=== PATIENT | female | born 1990 ===

== ENCOUNTER 2023-11-03 16:58 | Inpatient (IN) ==
--- OUTSIDE RECORDS SUMMARY | 2023-11-03 17:05 | External Medical Summary | Summary of Care ---
Author Name Unknown Organization [facility] Address [address] [facility] [place] [address] Phone [phone] Care Team Providers Care Communications Technician Name Role Phone Unavailable Primary Care Provider Unavailabl e Reason for Visit * Reason Comments Return Visit Encounter Details Date Type Department Care Team (Late st Contact Info) Description 10/30/2023 11:30 AM EDT Office Visit Gynecology/Obstetric phillip Flowers [address] [place] [address] Leslee Mena CRNP [address] [place] [address] Supervision of other normal , antepartum*; Rh negative status during in third trimester; Abnormal findings on screening; Uterine size date discrepancy Allergies Active Allergy Reactions Criticality Noted Date Comments Sulfamethoxazole-Trimethoprim Hives 2022 documented as of this encounter (statuses as of 10/30/2023) Medications Medication Sig Dispensed Refills Start Date End Date Status 19 29-1 MG Oral Tablet Chewable Take by mouth. 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 Amnio: Microarray results on amniotic fluid resulted as normal male, no evidence of Klinefelter syndrome. We discussed that this does not rule out mosaicism less than 10%. Reviewed option for maternal genetic testing to rule out X chromosome alteration. Patient interested if covered by insurance. S/p [facility] anatomy ultrasound: WNL. Following consult note: "She presents for a anatomy survey. She has cffDNA screening that was indeterminate for the sex chromosomes. She had an amniocentesis on 06/11/23 that was normal" Last Assessment & Plan: She presents for a anatomy survey. She has cffDNA screening that was indeterminate for the sex chromosomes. She had an amniocentesis on 06/11/23 that was normal. We discussed the option of additional maternal testing given her prior cffDNA result (see genetic counseling noted from 06/26 for details). She would like testing and plans to contact insurance to discuss coverage. We reviewed the results of today's ultrasound. The estimated weight is appropriate for gestational age. The visualized anatomy is unremarkable in appearance. The amniotic fluid amount appears normal. We discussed that ultrasound is not able to identify all anomalies, but it is reassuring that no anomalies were seen today. Supervision of other normal , antepartu m 04/17/2023 Rh negative status during 04/17/2023 Overview: Received Rhogam 03/14/23 for bleeding in early Estimated Date of Delivery Comme nts Yes 11/22/2023 Based on last me nstrual period of 02/15/2023 documented as of this encounter (statuses as of 10/30/2023) Immunizations Name Administration Dates Next Due TDAP (age 10 and older)(Boostrix) 09/04/2023 documented as of this encounter Social History Tobacco Use Types Packs/Day Years Used Date Smoking Tobacco: Never Passive Smoke Exposure: Never Smokeless Tobacco: Never Alcohol Use Standard Drinks/Week Comments Not Currently 0 (1 standard drink = 0.6 oz pur e alcohol) social PHQ-2 Answer Date Recorded PHQ Adult Total Score 0 03/14/2023 Hunger Vital Sign Answer Date Recorded Within the past 12 months, y ou worried that your food would run out before you got the money to buy more. Never true 07/10/20 Within the past 12 months, t he food you bought just didn't last and you didn't have money to get more. Never true 07/10/2023 [place] Depression Scale Answer Date Recorded [place] Depression Scale Total 1 10/02/2023 The thought of harming myself has occurred to me . Never 10/02/2023 Estimated Date of Delivery Comme nts Yes 11/22/2023 Based on last me nstrual period of 02/15/2023 Sex and Gender Information Value Date Recorded Sex Assigned at Female 10/16/2022 8:58 PM EDT Gender Identity Female 10/16/2022 8:58 PM EDT Sexual Orientation Straight 10/16/2022 8: 58 PM EDT Job Start Date Occupation Industry Not on file Not on file Not on file documented as of this encounter Last Filed Vital Signs Vital Sign Reading Time Taken Comments Blood Pressure 124/86 10/30/2023 11:20 AM EDT Pulse - - Temperature - - Respiratory Rate - - Oxygen Saturation - - Inhaled Oxygen Concentration - - Weight 88.7 kg (195 lb 9.6 oz) 10/30/2023 11:20 AM EDT Height - - Body Mass Index 28.89 10/16/2023 8:00 AM EDT documented in this encounter Progress Notes * Leslee Mena CRNP - 10/30/2023 11:31 AM EDT 36w5d Baby is moving well. Denies ctx, leaking, bleeding. Reviewed labor signs and FKC. She works from home 3 days a week, asking if she can do 5; advised at this point, there is no medical reason, and she should discuss this with her employer. GBS swab completed. S>D, will check growth scan. 1 week return SHARON Sandy * Angle Fish LPN - 10/30/2023 11:20 AM EDT 36w5d Denies vaginal bleeding/rom + movement documented in this encounter Plan of Treatment Upcoming Encounters Date Type Department Care Team (Late st Contact Info) Description 11/06/2023 8:45 AM EDT Imaging Radiology [facility] [address], [place] [address] 11/06/2023 10:30 AM EDT Office Visit Gynecology/Obstetrics [facility] [address] [place] [address] Diamond Cerna CRNP [address] [place] [address] 11/13/2023 11:45 AM EDT Office Visit Gynecology/Obstetrics [facility] [address] [place] [address] Leslee Mena CRNP [address] [place] [address] 11/20/2023 11:30 AM EDT Office Visit Gynecology/Obstetrics [facility] [address] [place] [address] Leslee Mena CRNP [address] [place] [address] Pending Results Name Type Priority Associated Diagnoses Date /Time GROUP B STREP CULTURE/PCR Lab Routine Supervision of other normal , antepartum 10/30/2023 11:38 AM EDT Scheduled Orders Name Type Priority Associated Diagnoses Orde r Schedule US PREG FOLLOW-UP EACH FETUS Medical Imaging Routine Supervision of other normal , antepartum Uterine size date discrepancy Expected: 10/30/2023 (Approximate), Expires: 11/28/2024 Health Maintenance Due Date Last Done Comments Hepatitis B (1 of 3 - 19+ 3- dose series) 2010 COVID-19 Vaccine (2022-2 4 season) 2023 Depression Screening 03/14/2024 03/14/2023 Influenza Vaccine (FLU shot) (Season Ended) 2024 Pap Smear 10/19/2025 10/19/2022 Cervical Cancer Screening 10/20/2027 HPV/Co-Test 10/20/2027 10/19/2022 DTaP,Tdap,and Td Vaccines (2 - Td or Tdap) 09/04/2033 09/04/2023 GARDASIL-HPV IMMUNIZATION SERIES Aged Out No longer eligible based on patient's age to complete this topic MENINGOCOCCAL (MENACTRA/MENVEO) Aged Out No longer eligible based on patient's age to complete this topic Pneumococcal Vaccine: Pediat rics (0 to 5 Years) and At-Risk Patients (6 to 64 Years) Aged Out No longer eligi ble based on patient's age to complete this topic documented as of this encounter Medical Devices Not on filedocumented as of this encounter Visit Diagnoses Diagnosis Supervision of other normal , antepartum- Primary Rh negative status during in third trimester Abnormal findings on screening Uterine size date discrepancy Uterine size date discrepancy, antepartum condition or complication documented in this encounter
--- OUTSIDE RECORDS SUMMARY | 2023-11-03 17:05 | External Medical Summary | Summary of Care ---
Author Name Unknown Organization [facility] Address [address] [facility] [place] [address] Phone [phone] Care Team Providers Care Retail Key Holder Name Role Phone Unavailable Primary Care Provider Unavailabl e Encounter Details Date Type Department Care Team (Late st Contact Info) Description 10/30/2023 [facility] [address] [place] [address] Backer, SHARON Diaz [address] [place] [place] [address] Allergies Active Allergy Reactions Criticality Noted Date [...] Patient interested if covered by insurance. S/p [facility] anatomy ultrasound: WNL. Following consult note: "She [...] money to get more. Never true 07/10/2023 [place] Depression Scale Answer Date Recorded [place] Depression Scale Total 1 10/02/2023 The thought [...] on file documented as of this encounter Miscellaneous Notes * Telephone Encounter - Hellen Camilo MED ASSIST - 10/30/2023 2:22 PM EDT Appt rescheduled, pt aware * Telephone Encounter - Audrey Ham RN - 10/30/2023 2:08 PM EDT Patient calling in asking to see what other appts are available for her US. Would like to schedule for tomorrow or Saturday if possible, per ashley this is okay. Please contact patient to r/s schedule US. documented in this encounter Plan of Treatment Upcoming Encounters Date Type Department Care Team (Late st Contact Info) Description 10/31/2023 8:30 AM EDT Imaging Radiology [facility] [address] [place] [address] 11/06/2023 10:30 AM EDT Office Visit Gynecology/Obstetrics [facility] [address] [place] [address] Diamond Cerna CRNP [address] [place] [address] 11/13/2023 11:45 AM EDT Office Visit Gynecology/Obstetrics [facility] [address] [place] [address] Leslee Mena CRNP [address] [place] [address] 11/20/2023 11:30 AM EDT Office Visit Gynecology/Obstetrics Pier[facility] Flowers [address] [place] [address] Leslee Mena CRNP [address] [place] [address] Health Maintenance Due Date Last Done Comments Hepatitis B (1 of 3 - 19+ 3- dose series) 2010 COVID-19 Vaccine ( - 2022-2 4 season) 2023 Depression Screening 03/14/2024 03/14/2023 [...]
--- OUTSIDE RECORDS SUMMARY | 2023-11-03 17:05 | External Medical Summary | Summary of Care ---
Author Name Unknown Organization [facility] Address [address] [facility] [place] [address] Phone [phone] Care Team Providers Care Head Strength And Conditioning Coach Name Role Phone Unavailable Primary Care Provider Unavailabl e Encounter Details Date Type Department Care Team (Late st Contact Info) Description 10/30/2023 Tele[facility] [address] [place] [address] Backer, SHARON Diaz [address] [place] [address] Allergies Active Allergy Reactions Criticality Noted Date [...] money to get more. Never true 07/10/2023 [place] Depression Scale Answer Date Recorded [place] Depression Scale Total 1 10/02/2023 The thought [...] Description 10/31/2023 8:30 AM EDT Imaging Radiology [facility] [address] [place] [address] 11/06/2023 10:30 AM EDT Office Visit Gynecology/Obstetrics [facility] [address] [place] [address] Diamond Cerna CRNP [address] [place] [address] 11/13/2023 11:45 AM EDT Office Visit Gynecology/Obstetrics [facility] [address] [place] [address] Leslee Mena CRNP [address] [place] [address] 11/20/2023 11:30 AM EDT Office Visit Gynecology/Obstetrics Piero Flowers [address] [place] [address] Leslee Mena CRNP [address] [place] [address] Health Maintenance Due Date Last Done Comments [...]
--- OUTSIDE RECORDS SUMMARY | 2023-11-03 17:05 | External Medical Summary ---
Author Name Unknown Address Unknown Organization K01:[facility] [place] [address] [facility] [address] Laboratory Report Ordering Provider Test Date Status ANNE SHARP 10/30/2023 11:38:49 Final Observation Date Value Abnormality Reference (Units ) Status Streptococcus agalactiae DNA [Presence] in Specimen by REMEDIOS with probe detection 10/30/2023 11:38:49 Negative Negative Final No Group B Streptococcus det ected by culture-enhanced PCR (amplified probe).
The collection of vaginal/rectal swab specimen combinations (FDA approved specimen type) is optimal for the detection of Group B Streptococcus. Single source collection (vaginal only or rectal only) or alternate specimen sources may lead to false negative results. Performing Location [facility] [place] [address] [place] [address]
--- OUTSIDE RECORDS SUMMARY | 2023-11-03 17:05 | External Medical Summary | Summary of Care ---
Author Name Unknown Organization [facility] Address [address] [facility] [place] [address] Phone [phone] Care Team Providers Care Crop Grain Or Livestock Farmer Name Role Phone Unavailable Primary Care Provider Unavailabl e Reason for Visit * Reason Comments Return Visit Encounter Details Date Type Department Care Team (Late st Contact Info) Description 10/30/2023 11:30 AM EDT Office Visit Gynecology/Obstetric phillip Flowers [address] [place] [address] Leslee Mena CRNP [address] [place] [place] [address] Supervision of other normal , antepartum*; Rh [...] Patient interested if covered by insurance. S/p [facility] anatomy ultrasound: WNL. Following consult note: "She [...] money to get more. Never true 07/10/2023 [place] Depression Scale Answer Date Recorded [place] Depression Scale Total 1 10/02/2023 The thought [...] Description 11/06/2023 8:45 AM EDT Imaging Radiology [facility] [address], [place] [address] 11/06/2023 10:30 AM EDT Office Visit Gynecology/Obstetrics [facility] [address] [place] [address] Diamond Cerna CRNP [address] [place] [address] 11/13/2023 11:45 AM EDT Office Visit Gynecology/Obstetrics [facility] [address] [place] [address] Leslee Mena CRNP [address] [place] [address] 11/20/2023 11:30 AM EDT Office Visit Gynecology/Obstetrics [facility] [address] [place] [address] Leslee Mena CRNP [address] [place] [address] Pending Results Name Type Priority Associated Diagnoses [...]
--- OUTSIDE RECORDS SUMMARY | 2023-11-03 17:05 | External Medical Summary | Summary of Care ---
Author Name Unknown Organization [facility] Address [address] [place] [address] Phone [phone] Care Team Providers Care Department Store Salesperson Name Role Phone Unavailable Primary Care Provider Unavailabl e Reason for Visit * Reason Onset Date Comments Test Results 10/24/2023 Chromosome Cata sis Result Encounter Details Date Type Department Care Team (Late st Contact Info) Description 10/24/2023 Telephone Senior Client Advisor Obstetrics [facility] [place] [address], [place] [phone] Jamila Frankel CHRA Test Results (Chromosome Analysis Result) Allergies Active Allergy Reactions Criticality Noted Date Comments Sulfamethoxazole-Trimethoprim Hives 2022 documented as of this encounter (statuses as of 10/29/2023) Medications Medication Sig Dispensed Refills Start Date End Date Status 19 29-1 MG Oral Tablet Chewable Take by mouth. 0 Activ e documented as of this encounter (statuses as of 10/29/2023) Active Problems Problem Noted Date Diagnosed Date [...] as of this encounter (statuses as of 10/29/2023) Immunizations Name Administration Dates Next Due TDAP [...] money to get more. Never true 07/10/2023 [place] Depression Scale Answer Date Recorded [place] Depression Scale Total 1 10/02/2023 The thought [...] encounter Miscellaneous Notes * Telephone Encounter - Janet Koch MS - 10/29/2023 10:38 AM EDT MyG to patient explaining the results. She had normal karyotype, her baby had a normal microarray (male). 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 We cannot rule out low level (<10-15%) mosaicism. Janet Koch MS [facility] [place]ified [place] Licensed Genetic Counselor [phone] * Telephone Encounter - Jamila Frankel CHRA - 10/24/2023 10:55 AM EDT The pts chromosome analysis came back normal. 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 There are no changessuspicious for a balanced translocation. Based on this result we do not see an inherited genetic reason for recurrent loss. GC routed to review results and notify patient, due to suspected sex chromosomal abnormality in fetus. Respectfully, Jamila Frankel Genetic Counseling Clutch Assembler Maternal Medicine For further questions call the Genetic Counselor at + . documented in this encounter Plan of Treatment Upcoming Encounters Date Type Department Care Team (Late st Contact Info) Description 10/30/2023 11:30 AM EDT Office Visit Gynecology/Obstetrics [facility] [address] [place] [address] BackerLeslee CRNP [address] [place] [address] 11/06/2023 10:30 AM EDT Office Visit Gynecology/Obstetrics [facility] [address] [place] [address] Diamond Cerna CRNP [address] [place] [address] 11/13/2023 11:45 AM EDT Office Visit Gynecology/Obstetrics [facility] [address] [place] [address] Leslee Mena CRNP [address] [place] [address] 11/20/2023 11:30 AM EDT Office Visit Gynecology/Obstetrics [facility] [address] [place] [address] Leslee Mena CRNP [address] [place] [address] Health Maintenance Due Date Last Done Comments [...]
--- OUTSIDE RECORDS SUMMARY | 2023-11-03 17:05 | External Medical Summary | Summary of Care ---
Author Name Unknown Organization [facility] Address [address] [place] [address] Phone [phone] Care Team Providers Care Peer Counselor Name Role Phone Unavailable Primary Care Provider Unavailabl e Reason for Visit * Reason Onset Date Comments Test Results 10/24/2023 Chromosome Cata sis Result Encounter Details Date Type Department Care Team (Late st Contact Info) Description 10/24/2023 Telephone Monitor And Storage Bin Tender Obstetrics [facility] [place] [address] [place], [place] [phone] Jamila Frankel CHRA Test Results (Chromosome Analysis Result) Allergies Active Allergy Reactions Criticality Noted Date Comments Sulfamethoxazole-Trimethoprim Hives 2022 documented as of this encounter (statuses as of 10/24/2023) Medications Medication Sig Dispensed Refills Start Date End Date Status 19 29-1 MG Oral Tablet Chewable Take by mouth. 0 Activ e documented as of this encounter (statuses as of 10/24/2023) Active Problems Problem Noted Date Diagnosed Date [...] as of this encounter (statuses as of 10/24/2023) Immunizations Name Administration Dates Next Due TDAP [...] money to get more. Never true 07/10/2023 [place] Depression Scale Answer Date Recorded [place] Depression Scale Total 1 10/02/2023 The thought [...] encounter Miscellaneous Notes * Telephone Encounter - Jamila Frankel CHRA [...] in fetus. Respectfully, Jamila Frankel Genetic Counseling Electrical Products Sales Engineer Maternal Medicine For further questions call the Genetic Counselor at + . documented in this encounter Plan of Treatment Upcoming Encounters Date Type Department Care Team (Late st Contact Info) Description 10/30/2023 11:30 AM EDT Office Visit Gynecology/Obstetrics [facility] [address] [place] [address] Leslee Mena CRNP [address] [place] [address] 11/06/2023 10:30 AM EDT Office Visit Gynecology/Obstetrics [facility] [address] [place] [address] Diamond Cerna CRNP [address] [place] [address] 11/13/2023 11:45 AM EDT Office Visit Gynecology/Obstetrics [facility] [address] [place] [address] Leslee Mena CRNP [address] [place] [address] 11/20/2023 11:30 AM EDT Office Visit Gynecology/Obstetrics [facility] [address] [place] [address] BackerLeslee CRNP [address] [place] [address] Health Maintenance Due Date Last Done Comments Hepatitis B (1 of 3 - 19+ 3- dose series) 2010 COVID-19 Vaccine (2022-2 4 season) 2023 Influenza Vaccine (FLU shot) (#1) 2023 Depression Screening 03/14/2024 03/14/2023 Pap Smear 10/19/2025 10/19/2022 Cervical Cancer Screening [...]
--- OUTSIDE RECORDS SUMMARY | 2023-11-03 17:05 | External Medical Summary | Summary of Care ---
Author Name Unknown Organization [facility] Address [address] [place] [address] Phone [phone] Care Team Providers Care Kilnman Name Role Phone Unavailable Primary Care Provider Unavailabl e Reason for Visit * Reason Comments Return Visit Encounter Details Date Type Department Care Team (Late st Contact Info) Description 10/30/2023 11:30 AM EDT Office Visit Gynecology/Obstetric phillip Flowers [address] [place] [address] Leslee Mena CRNP [address] [place] [address] Supervision of other normal , antepartum*; Rh [...] Patient interested if covered by insurance. S/p [facility] anatomy ultrasound: WNL. Following consult note: [...] money to get more. Never true 07/10/2023 [place] Depression Scale Answer Date Recorded [place] Depression Scale Total 1 10/02/2023 The thought [...] Description 11/06/2023 8:45 AM EDT Imaging Radiology [facility] [address], [place] [address] 11/06/2023 10:30 AM EDT Office Visit Gynecology/Obstetrics [facility] [address] [place] [address] Diamond Cerna CRNP [address] [place] [address] 11/13/2023 11:45 AM EDT Office Visit Gynecology/Obstetrics [facility] [address] [place] [address] Leslee Mena CRNP [address] [place] [address] 11/20/2023 11:30 AM EDT Office Visit Gynecology/Obstetrics [facility] [address] [place] [address] Leslee Mena CRNP [address] [place] [address] Pending Results Name Type Priority Associated Diagnoses [...]
--- OUTSIDE RECORDS SUMMARY | 2023-11-03 17:06 | External Medical Summary | Summary of Care ---
Author Name Unknown Organization [facility] Address [address] [facility] [place] [address] Phone [phone] Care Team Providers Care Distributor Sales Manager Name Role Phone Unavailable Primary Care Provider Unavailabl e Reason for Visit * Reason Comments Return Visit Encounter Details Date Type Department Care Team (Late st Contact Info) Description 10/02/2023 9:15 AM EST Office Visit Gynecology/Obstetric phillip Flowers [address] [place] [address] Rafaela Schuster PA-C [address] [place] [address] Supervision of other normal , antepartum*; Rh negative status during in third trimester; Abnormal findings on screening Allergies Active Allergy Reactions Criticality Noted Date Comments Sulfamethoxazole-Trimethoprim Hives 2022 documented as of this encounter (statuses as of 10/02/2023) Medications Medication Sig Dispensed Refills Start Date End Date Status 19 29-1 MG Oral Tablet Chewable Take by mouth. 0 Activ e documented as of this encounter (statuses as of 10/02/2023) Active Problems Problem Noted Date Diagnosed Date [...] as of this encounter (statuses as of 10/02/2023) Immunizations Name Administration Dates Next Due TDAP [...] money to get more. Never true 07/10/2023 [place] Depression Scale Answer Date Recorded [place] Depression Scale Total 1 10/02/2023 The thought [...] Sign Reading Time Taken Comments Blood Pressure 118/82 10/02/2023 9:02 AM EST Pulse - - Temperature - - Respiratory Rate - - Oxygen Saturation - - Inhaled Oxygen Concentration - - Weight 84.8 kg (187 lb) 10/02/2023 9:02 AM EST Height 175.3 cm (5' 9") 10/02/2023 9:02 AM EST Body Mass Index 27.62 10/02/2023 9:02 AM EST documented in this encounter Progress Notes * Rafaela Schuster PA-C - 10/02/2023 9:29 AM EST 32w5d Increasing heartburn at night while sleeping. Has been trying to sleep reclined. Reviewed TUMS and Pepcid. Denies VB, LOF, contractions. Pos fm. Reviewed GBS at 36 weeks RTC in 2 weeks Rafaela Schuster PA-C documented in this encounter Nursing Notes * Aleah Culver LPN - 10/02/2023 9:17 AM EST 32w5d Heartburn. documented in this encounter Plan of Treatment Upcoming Encounters Date Type Department Care Team (Late st Contact Info) Description 10/16/2023 8:15 AM EDT Office Visit Gynecology/Obstetrics [address] [place] [address] Diamond Cerna CRNP [address] [place] [address] 10/30/2023 11:30 AM EDT Office Visit Gynecology/Obstetrics [facility] [address] [place] [address] BackLeslee mora CRNP [address] [place] [address] 11/06/2023 10:30 AM EDT Office Visit Gynecology/Obstetrics [facility] [address] [place] [address] Diamond Cerna CRNP [address] [place] [address] 11/13/2023 11:45 AM EDT Office Visit Gynecology/Obstetrics [facility] [address] [place] [address] BackLeslee mora CRNP [address] [place] [address] 11/20/2023 11:30 AM EDT Office Visit Gynecology/Obstetrics [facility] [address] [place] [address] BackLeslee mora CRNP [address] [place] [address] Health Maintenance Due Date Last Done Comments [...] in third trimester Abnormal findings on screening documented in this encounter
--- OUTSIDE RECORDS SUMMARY | 2023-11-03 17:06 | External Medical Summary | Summary of Care ---
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 0 Activ e documented as of this encounter (statuses as of 10/16/2023) Active Problems Problem Noted Date Diagnosed Date [...] Patient interested if covered by insurance. S/p [facility] anatomy ultrasound: WNL. Following consult note: [...] as of this encounter (statuses as of 10/16/2023) Immunizations Name Administration Dates Next Due TDAP [...] money to get more. Never true 07/10/2023 [place] Depression Scale Answer Date Recorded [place] Depression Scale Total 1 10/02/2023 The [...] on file documented as of this encounter Plan of Treatment Upcoming Encounters Date Type Department Care Team (Late st Contact Info) Description 10/30/2023 11:30 AM EDT Office Visit Gynecology/Obstetrics [facility] [address] [place] [address] Leslee Mena CRNP [address] [place] [address] 11/06/2023 10:30 AM EDT Office Visit Gynecology/Obstetrics [facility] [address] [place] [address] Diamond Cerna CRNP [address] [place], [place] [address] 11/13/2023 11:45 AM EDT Office Visit Gynecology/Obstetrics [facility] M[facility]orm[facility] [address] [place] [address] Leslee Mena CRNP [address] [place] [address] 11/20/2023 11:30 AM EDT Office Visit Gynecology/Obstetrics [facility] [address] [place] [address] Leslee Mena CRNP [address] [place] [address] Pending Results Name Type Priority Associated Diagnoses Date /Time CHROMOSOME ANALYSIS, BLOOD Lab Routine Encounter for other genetic testing of female for procreative management 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
--- OUTSIDE RECORDS SUMMARY | 2023-11-03 17:06 | External Medical Summary ---
Author Name Unknown Address Unknown Organization : Laboratory Report Ordering Provider Test Date Status LIANA SULTANA 10/16/2023 08:27:45 Final [facility] Test code 36725
IC D10 Z31.43; O35.15
CPT codes: 22023, 31448 Observation Date Value Abnormality Reference (Units ) Status Karyotype [Identifier] in Blood or Tissue Nominal 10/16/2023 08:27:45 SEE BELOW Final Order ID: [id number]
Spec imen Type: Blood
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
fetus, encounter for other genetic testing
of female for procreative management
RESULT:
NORMAL FEMALE KARYOTYPE
INTERPRETATION:
Chromosome analysis revealed normal G-band patterns within the limits
of standard cytogenetic analysis.
Please expect the results of any other concurrent study in a separate
report.
NOMENCLATURE:
46,XX
ASSAY INFORMATION:
Method: G-Band (Digital Analysis:
[employer])
Cells Counted: 20
Band Level: 550
Cells Analyzed: 5
Cells Karyotyped: 5
This test does not address genetic disorders that cannot be detected
by standard cytogenetic methods or rare events such as low level
mosaicism or subtle rearrangements.
Stacy Dietz, Ph.D., [facility], Surgical Technologist, Cytogenetics
and Genomics, , (site [id number])
Electronic Signature: 10/24/2023 8:17 AM
For additional information, please refer to
[email or web address]
(This link is being provided for informational/
educational purposes only).
Test Performed by [facility],
[facility],
[address] [place], [place]
Atul Schwartz M.D., Ph.D., Director of Laboratories
, [facility] [id number]

Test Performed at:
[facility]
[address] [facility]
[place], [place]
Atul Schwartz M.D., Ph.D.,Director of Laboratories Performing Location
--- OUTSIDE RECORDS SUMMARY | 2023-11-03 17:06 | External Medical Summary ---
Author Name Unknown Address Unknown Organization [id number]:[facility] [address] [facility] [place] [address] Laboratory Report Ordering Provider Test Date Status ISHAN MCCLENDON 09/04/2023 10:20:53 Final Observation Date Value Abnormality Reference (Units ) Status SYNC LEUKOCYTES IN BLOOD BY AUTOMATED COUNT 09/04/2023 10:20:53 7.72 4.00-10.80 (K/uL) Final Segs 09/04/2023 10:20:53 72.3 40.0-75.0 (%) Final Lymphs % 09/04/2023 10:20:53 17.1 Below low normal 18.0-42.0 (%) Final Monos 09/04/2023 10:20:53 8.8 1.0-11.0 (%) Final Eosinophils 09/04/2023 10:20:53 0.8 0.0-6.0 (%) Final Basos 09/04/2023 10:20:53 0.4 0.0-2.0 (%) Final Immature Granulocyte, Percent 09/04/2023 10:20:53 0.6 0.0-2.0 (%) Final Absolute Segs 09/04/2023 10:20:53 5.58 1.80-7.70 (K/uL) Final Lymphs, absolute 09/04/2023 10:20:53 1.32 1.00-4.80 (K/ul) Final Monos, Abs 09/04/2023 10:20:53 0.68 0.00-1.10 (K/uL) Final Eos, Abs 09/04/2023 10:20:53 0.06 0.00-0.70 (K/uL) Final Basos, Abs 09/04/2023 10:20:53 0.03 0.00-0.20 (K/uL) Final Immature Granulocytes, Number 09/04/2023 10:20:53 0.05 0.00-0.20 (K/uL) Final Performing Location [facility] [place] [address] [facility] [address]
--- OUTSIDE RECORDS SUMMARY | 2023-11-03 17:06 | External Medical Summary | Summary of Care ---
Author Name Unknown Organization [facility] Address [address] [place] [address] Phone [phone] Care Team Providers Care Rn Neonatal Name Role Phone Unavailable Primary Care Provider Unavailabl e Encounter Details Date Type Department Care Team (Late st Contact Info) Description 10/23/2023 Telephone Gynecology/Obstetrics, [address] [place] [address] Kris Lindquist MD [address] [place] [address] Allergies Active Allergy Reactions Criticality Noted Date Comments Sulfamethoxazole-Trimethoprim Hives 2022 documented as of this encounter (statuses as of 10/23/2023) Medications Medication Sig Dispensed Refills Start Date End Date Status 19 29-1 MG Oral Tablet Chewable Take by mouth. 0 Activ e documented as of this encounter (statuses as of 10/23/2023) Active Problems Problem Noted Date Diagnosed Date [...] as of this encounter (statuses as of 10/23/2023) Immunizations Name Administration Dates Next Due TDAP [...] money to get more. Never true 07/10/2023 [place] Depression Scale Answer Date Recorded [place] Depression Scale Total 1 10/02/2023 The thought [...] encounter Miscellaneous Notes * Telephone Encounter - Alma Rosa Sanderson RN - 10/23/2023 11:18 AM EDT T/C from pt reporting lower back pain since yesterday. Feels stiff. More on the R side. States she was doing more around the house yesterday than usual. Admits to +FM. Denies vaginal bleeding or LOF. Advised tylenol, warm compress and to hydrate well with water. To call office with any changes, UCs, decreased FM, vaginal bleeding or LOF. Pt agreeable to plan. Please review with provider. Trey's pt. documented in this encounter Plan of Treatment Upcoming Encounters Date Type Department Care Team (Late st Contact Info) Description 10/30/2023 11:30 AM EDT Office Visit Gynecology/Obstetrics [facility]o Flowers [address] [place] [address] Leslee Mena CRNP [address] [place] [address] 11/06/2023 10:30 AM EDT Office Visit Gynecology/Obstetrics Piero Flowers [address] [place] [address] Diamond Cerna CRNP [address] [place] [address] 11/13/2023 11:45 AM EDT Office Visit Gynecology/Obstetrics Piero Flowers [address] [place] [address] BackLeslee mora CRNP [address] [place] [address] 11/20/2023 11:30 AM EDT Office Visit Gynecology/Obstetrics Piero Flowers [address] [place] [address] Backer, LesleeSHARON Garcia [address] [place] [address] Health Maintenance Due Date Last Done Comments [...]
--- OUTSIDE RECORDS SUMMARY | 2023-11-03 17:06 | External Medical Summary | Summary of Care ---
Author Name Unknown Organization [facility] Address [address] [place] [address] Phone [phone] Care Team Providers Care Banking Attorney Name Role Phone Unavailable Primary Care Provider Unavailabl e Encounter Details Date Type Department Care Team (Late st Contact Info) Description 10/23/2023 Telephone Gynecology/Obstetrics, [address] [place] [address] Kris Lindquist MD [address] [place] [address] Allergies Active Allergy Reactions Criticality Noted Date [...] money to get more. Never true 07/10/2023 [place] Depression Scale Answer Date Recorded [place] Depression Scale Total 1 10/02/2023 The thought [...] Gynecology/Obstetrics Piero Flowers [address] [place] [address] Leslee Mena CRNP [address] [place] [address] 11/06/2023 10:30 AM EDT Office Visit Gynecology/Obstetrics Piero Flowers [address] [place] [address] Diamond Cerna CRNP [address] [place] [address] 11/13/2023 11:45 AM EDT Office Visit Gynecology/Obstetrics Piero Flowers [address] [place] [address] BackLeslee mora CRNP [address] [place] [address] 11/20/2023 11:30 AM EDT Office Visit Gynecology/Obstetrics Piero Flowers [address] [place] [address] Backer, LesleeSHARON Garcia [address] [place] [address] Health Maintenance Due Date Last Done Comments [...]
--- OUTSIDE RECORDS SUMMARY | 2023-11-03 17:06 | External Medical Summary ---
Author Name Unknown Address Unknown Organization K0G[facility] [address] [place] [address] Laboratory Report Ordering Provider Test Date Status DANELLEISHAN 09/04/2023 10:20:53 Final Observation Date Value Abnormality Reference (Units ) Status Glucose [Moles/volume] in Serum or Plasma --1 hour post 50 g glucose PO 09/04/2023 10:20:53 90 70-129 (mg/dL) Final Performing Location [facility] - [address] [place] [address]
--- OUTSIDE RECORDS SUMMARY | 2023-11-03 17:06 | External Medical Summary | Summary of Care ---
Author Name Unknown Organization [facility] Address [address] [facility] [place] [address] Phone [phone] Care Team Providers Care Waste Treatment Operator Name Role Phone Unavailable Primary Care Provider Unavailabl e Reason for Visit * Reason Comments Return Visit Encounter Details Date Type Department Care Team (Late st Contact Info) Description 10/16/2023 8:15 AM EDT Office Visit Gynecology/Obstetric s Piero Flowers [address] [place] [address] Diamond Cerna CRNP [address] [place] [address] Supervision of other normal , antepartum*; Rh negative, antepartum; Abnormal findings on screening Allergies Active Allergy [...] money to get more. Never true 07/10/2023 [place] Depression Scale Answer Date Recorded [place] Depression Scale Total 1 10/02/2023 The thought [...] Sign Reading Time Taken Comments Blood Pressure 128/82 10/16/2023 8:00 AM EDT Pulse - - Temperature - - Respiratory Rate - - Oxygen Saturation - - Inhaled Oxygen Concentration - - Weight 88.9 kg (196 lb) 10/16/2023 8:00 AM EDT Height 175.3 cm (5' 9") 10/16/2023 8:00 AM EDT Body Mass Index 28.94 10/16/2023 8:00 AM EDT documented in this encounter Progress Notes * Diamond Cerna CRNP - 10/16/2023 8:15 AM EDT 34w5d No concerns. Baby is active. No contractions, bleeding, LOF. Planning to breastfeed. Discussed contraception, not interested in anything hormonal. Likely going to use condoms. 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, sex chromosome abnormality, not applicable or unspecified 10/30/2023 11:30 AM EDT Office Visit Gynecology/Obstetric phillip Flowers [address] [place] [address] Leslee Mena CRNP [address] [place] [address] 11/06/2023 10:30 AM EDT Office Visit Gynecology/Obstetric phillip Flowers [address] [place] [address] Diamond Cerna CRNP [address] [place] [address] 11/13/2023 11:45 AM EDT Office Visit Gynecology/Obstetric phillip Flowers [address] [place] [address] Leslee Mena CRNP [address] [place] [address] 11/20/2023 11:30 AM EDT Office Visit Gynecology/Obstetric phillip Flowers [address] [place] [address] Leslee Mena CRNP [address] [place] [address] Health Maintenance Due Date Last Done Comments [...] of other normal , antepartum- Primary Rh negative, antepartum Rhesus isoimmunization affecting management of mother, antepartum condition Abnormal findings on screening Encounter for other genetic testing of female for procreative management 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
--- OUTSIDE RECORDS SUMMARY | 2023-11-03 17:06 | External Medical Summary | Summary of Care ---
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 0 Activ e Hospital, Clinic, or Other Facility Administered Medication Ordered Dose Route Frequency Start Date End Date Status Rho D Immune Globulin (Rhophylac) inj 300 mcgIndications:Abnormal findings on screening,Supervision of high risk in second trimester 300 mcg IM ONCE 06/11/2023 06/11/2023 Ended documented as of this encounter (statuses as of 08/10/2023) Active Problems Problem Noted Date Diagnosed Date [...] alteration. Patient interested if covered by insurance. Last Assessment & Plan: She presents for [...] today. Supervision of other normal , antepartu 04/17/2023 Rh negative status during 04/17/2023 Overview: Received Rhogam 03/14/23 for bleeding in early Estimated Date of Delivery Comme nts Yes 11/22/2023 Based on last de nstrual period of 02/15/2023 documented as of this encounter (statuses as of 08/10/2023) Social History Tobacco Use Types Packs/Day Years [...] the money to buy more. Never true 10/17/19 Within the past 12 months, t he food you bought just didn't last and you didn't have money to get more. Never true 10/16/2022 Estimated Date of Delivery Comme nts Yes [...] on file documented as of this encounter Progress Notes * Imelda Hooks, DO - 06/11/2023 10:01 AM EST MATERNAL MEDICINE VISIT Sheron Benton is at 16w4d who presents to [facility] for an ultrasound and follow-up of her high risk . 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 Patient received genetic counseling prior to amniocentesis and was informed of a 1/500 risk of loss associated with this procedure. She also understands the risks of bleeding, infection, rupture of membranes and insufficient sample acquisition. She is Rh negative, therefore RhIg is indicat ed. Infectious studies (including HIV and Hepatitis B) are negative. Following consent and a timeout, a successful amniocentesis was performed with one needle insertion (6.0, 20 gauge). The first 1 cc was extracted and discarded; 31 cc were withdrawn and the fluid was sent for microarray. The placenta was not traversed and the fluid appeared straw yellow. heart rate was in the normal range post-procedure. The patient tolerated the procedure well and there were no apparent complications. Post-procedure precautions were given to the patient. The patient will be informed of the genetic testing results from our genetic counselor. 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 (For full report, please refer to ultrasound report provided separately). Ms. Benton's questions were answered to her satisfaction. RECOMMENDATIONS: Recommend follow up ultrasound with MFM in 4 weeks for anatomy scan, however patient does live a distance from [facility] and may prefer to see Radiology closer to home if microarray results as normal. Willcoordinate after results reviewed with the patient. Thank you for allowing us to participate in the care of this patient. Please call with any questions. Imelda Hooks DO 06/11/2023 10:01 AM I have discussed the patient's management with the medical trainee and agree with the note. Please refer to the documented findings and plan of care. This patient's visit today consisted of an evaluation, a procedure and a diagnostic. I was present and confirmed the findings of the history and exam, and was present for the entire procedure. I have reviewed the interpretation of the diagnostic study. 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 Patient received genetic counseling prior to amniocentesis and was informed of a 1/500 risk of loss associated with this procedure. She also understands the risks of bleeding, infection, rupture of membranes and insufficient sample acquisition. She is Rh negative, therefore RhIg is indicat ed. Infectious studies (including HIV and Hepatitis B) are negative. Following consent and a timeout, a successful amniocentesis was performed with one needle insertion (6.0, 20 gauge). The first 1 cc was extracted and discarded; 31 cc were withdrawn and the fluid was sent for microarray. The placenta was not traversed and the fluid appeared straw yellow. heart rate was in the normal range post-procedure. The patient tolerated the procedure well and there were no apparent complications. Post-procedure precautions were given to the patient. The patient will be informed of the genetic testing results from our genetic counselor. documented in this encounter Plan of Treatment Upcoming Encounters Date Type Department Care Team (Late st Contact Info) Description 09/04/2023 9:00 AM EST Laboratory Laboratory, [facility] [address] [place] [id number] [facility] [address] [place] [address] 09/04/2023 9:30 AM EST Office Visit [facility]stetrics [facility] [place] [address] Diamond Cerna CRNP [address] [facility] [place] [address] Scheduled Orders Name Type Priority Associated Diagnoses Orde r Schedule MFM US PREG FOLLOW UP EACH FETUS Medical Imaging Routine Abnormal findings on screening Supervision of high risk in second trimester 5 Occurrences starting 06/11/2023 until 11/22/2023 Health Maintenance Due Date Last Done Comments Hepatitis B (1 of 3 - 3-dose series) 1990 COVID-19 Vaccine (#1) 01/18/1992 DTaP,Tdap,and Td Vaccines (1 - Tdap) 2010 Influenza Vaccine (FLU shot) (#1) 2023 Depression Screening 03/14/2024 03/14/2023 Pap Smear 10/19/2025 10/19/2022 Cervical Cancer Screening 10/20/2027 HPV/Co-Test 10/20/2027 10/19/2022 GARDASIL-HPV IMMUNIZATION SERIES Aged Out No longer [...] Not on filedocumented as of this encounter Procedures Procedure Name Priority Date/Time Associated Diagnosis Comments HIGH-RESOLUTION RAPID MICROARRAY (CGH AND SNP) Routine 06/11/2023 8:28 AM EST Abnormal findings on screening 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 1 MCG = 5 INTERNATIONAL UNITS Given 06/11/2023 10:06 AM EST 300 mcg Dorsogluteal Left documented in this encounter
--- OUTSIDE RECORDS SUMMARY | 2023-11-03 17:06 | External Medical Summary | Continuity of Care Document ---
Author Name Unknown Organization [facility] [address] [facility] 2 Address [address] [phone] Encounter [facility] [id number] Date(s): 10/17/23 - 10/17/23 [facility] [address] [facility] 2 [place], [place] [id number] Encounter Diagnosis Lentigines(Discharge Diagnosis) - 10/17/23 Acne vulgaris(Discharge Diagnosis) - 10/17/23 Discharge Disposition: Home or Self Care Attending Physician: KULDIP Vega Dawn M Referring Physician: KULDIP Vega Dawn M Allergies, Adverse Reactions, Alerts Substance Reaction Severity Status Bactrim Hives Active Assessment and Plan Extracted from: Title:Dermatology Office Visit Note Author:Kim mary PA-C, Dawn M Date:10/17/23 1.Lentigines chronic and stable -watchful waiting. Sun protection emphasized. Recheck right cheek 3-4 months 2.Acne vulgaris chronic and worsening - azelaic acid 10% BID, 2.5% BP wash in AM and vanicream wash PM with vanicream moisturizer. Consider clindamycin topical. Reviewed sun protection with SPF 30 or higher applied every 80 minutes and use of sun protective clothing and hat. Call with questions or concerns. Follow up 3-4 months and 1 year. Patient in agreement with plan. Medications Multivitamins with Vitamin B Complex, Vitamin C, Minerals and L- Methylfolate oral capsule Start: 10/11/22 9:06:00 EDT Start Date: 10/11/22 Status: Ordered Mental Status 10/17/23 Barriers to Learning one year None evide nt Mandatory Health Literacy Documentation Yes Health Literacy Communication Barriers N ever Primary Language [place] Problem List No Chronic Problems Diagnosis Diagnosis Type Effective Dates Health Status Cl inical Service Informant Lentigines Discharge Diagnosis 10/17/23 Acne vulgaris Discharge Diagnosis 10/17/23 Procedures Procedure Date Related Diagnosis Body Site Status Shave biopsy of skin 09/04/23 Comp leted Surgery 1 Completed 1multiple surgeries left knee Social History Social History Type Response Smoking Status Never smoked cigaret delmy Sex Dermatology Outpatient Note * KULDIP Vega Dawn M: PERFORM Event Display: Dermatology Outpt Note Authored Date: [id number] Chief Complaint Annual skin check. No concerns. Pt is 35 weeks . History of Present Illness Verona DOHERTY a33 year old patient presenting today with a chief complaint of Annual skin check. No concerns. Pt is 35 weeks ..She denies itching, bleeding, oozing, crusting or evolving lesions. Patient has no past personal history of skin cancer: Family history: none of skin cancer Patient uses sunscreen. Patient reports history of blistering sunburns / tanning beds. Grew up in [place]. Never worked outdoors. Not working now. Review of Systems Denies fever, chills, sweats, night sweats, weight loss, headache, visual change, stomach upset diarrhea and joint pain. Physical Exam _Constitutional: Generally well appearing, well developed. Appears stated age. Eyes: Conjunctivae and lids without noted inflammation, lesion, mass, deformity or drainage. Cardiovascular: Swelling of the lower extremities not noted. Extremities pink, warm and dry. Extremities: Digits and nails without clubbing, cyanosis, petechiae, signs of ischemia, infectionor inflammation. Neurological / Psychiatric: Oriented to person, place and time. Appropriate mood and affect. No notable depression, anxiety or agitation. Complete skin exam was performed today including head, neck, chest, axillae, abdomen, groin, buttocks, back, bilateral upper and bilateral lower extremities. Palpation of the scalp, inspection of hair of scalp, eyebrows and finger and toenails was performed. The exam was within normal limits the exception of: PATIENT DECLINED PLANT SUPERVISOR BACK, LEGS, FACEhyperkeratotic plaques and papules consistent with seborrheic keratoses SHOULDERS - light brown 3-4mm reticular macules consistent with lentigines RIGHT CHEEK - 1cm brown patchy macule - photos - jatin k vs lentigo Images 2023-10-17 09:52:49 2023-10-17 09:53:00 Assessment/Plan 1.Lentigines chronic and stable -watchful waiting. Sun protection emphasized. Recheck right cheek 3-4 months 2.Acne vulgaris chronic and worsening - azelaic acid 10% BID, 2.5% BP wash in AM and vanicream wash PM with vanicream moisturizer. Consider clindamycin topical. Reviewed sun protection with SPF 30 or higher applied every 80 minutes and use of sun protective clothing and hat. Call with questions or concerns. Follow up 3-4 months and 1 year. Patient in agreement with plan. Problem List/Past Medical History Ongoing No chronic problems Procedure/Surgical History Shave biopsy of skin| Service Date: 09/04/2023Surgery Medications multivitamin, ( Multivitamins with Vitamin B Complex, Vitamin C, Minerals and L-Methylfolate oral capsule) Allergies BactrimHives Social History Smoking Status Never smoked cigarettes Electronic Signature on File Electronically Reviewed/Signed by: COLT Jarrett Author Signature Dt/Tm:10/17/2023 10:02 AM Department of Family Medicine Department of Dermatology [facility] "
--- OUTSIDE RECORDS SUMMARY | 2023-11-03 17:06 | External Medical Summary | Summary of Care ---
Author Name Unknown Organization [facility] Address [address] [facility] [place] [address] Phone [phone] Care Team Providers Care Acid Filler Name Role Phone Unavailable Primary Care Provider Unavailabl e Reason for Visit * Reason Comments Return Visit Encounter Details Date Type Department Care Team (Late st Contact Info) Description 09/18/2023 8:45 AM EST Office Visit Gynecology/Obstetric s [facility] [address] [place] [address] Diamond Cerna CRNP [address] [place] [address] Supervision of other normal , antepartum*; Rh negative status during in third trimester; Abnormal findings on screening Allergies Active Allergy Reactions Criticality Noted Date Comments Sulfamethoxazole-Trimethoprim Hives 2022 documented as of this encounter (statuses as of 09/18/2023) Medications Medication Sig Dispensed Refills Start Date End Date Status 19 29-1 MG Oral Tablet Chewable Take by mouth. 0 Activ e documented as of this encounter (statuses as of 09/18/2023) Active Problems Problem Noted Date Diagnosed Date [...] as of this encounter (statuses as of 09/18/2023) Immunizations Name Administration Dates Next Due TDAP [...] money to get more. Never true 07/10/2023 Estimated Date of Delivery Comme nts Yes [...] Sign Reading Time Taken Comments Blood Pressure 104/62 09/18/2023 8:38 AM EST Pulse - - Temperature - - Respiratory Rate - - Oxygen Saturation - - Inhaled Oxygen Concentration - - Weight 83.5 kg (184 lb) 09/18/2023 8:38 AM EST Height 175.3 cm (5' 9") 09/18/2023 8:38 AM EST Body Mass Index 27.17 09/18/2023 8:38 AM EST documented in this encounter Progress Notes * Diamond Cerna CRNP - 09/18/2023 8:52 AM EST 30w5d Had SK removed from nipple same day as last appt, healed well. Increase in vaginal discharge. White in color. Denies itching, burning, or irritation. Intermittentodor. Reassured this sounds normal. Baby is active. No contractions, bleeding, or LOF. SHARON Victoria * Zaira Hussein LPN - 09/18/2023 8:39 AM EST 30w5d Increase in discharge documented in this encounter Plan of Treatment Upcoming Encounters Date Type Department Care Team (Late st Contact Info) Description 10/02/2023 9:15 AM EST Office Visit Gynecology/Obstetrics [facility] [address] [place] [address] Rafaela Schuster PA-C [address] [place] [address] Health Maintenance Due Date Last Done Comments [...]
--- OUTSIDE RECORDS SUMMARY | 2023-11-03 17:06 | External Medical Summary | Summary of Care ---
Author Name Unknown Organization [facility] Address [address] [place] [address] Phone [phone] Care Team Providers Care Thread Dresser Name Role Phone Unavailable Primary Care Provider Unavailabl e Encounter Details Date Type Department Care Team (Late st Contact Info) Description 10/23/2023 Telephone Gynecology/Obstetrics, [address] [place] [address] Kris Lindquist MD [address] [place] [address] Allergies Active Allergy Reactions Criticality Noted Date [...] money to get more. Never true 07/10/2023 [place] Depression Scale Answer Date Recorded [place] Depression Scale Total 1 10/02/2023 The thought [...] encounter Miscellaneous Notes * Telephone Encounter - Audrey Ham RN - 10/23/2023 3:[address] Pak's message: Agree with recommendations Called patient and made aware. She verbalized understanding. * Telephone Encounter - Alma Rosa Sanderson [...] Gynecology/Obstetrics [facility] [address] [place] [address] Leslee Mena CRNP [address] [address] 11/06/2023 10:30 AM EDT Office Visit Gynecology/Obstetrics [facility] [address] [place] [address] Diamond Cerna CRNP [address] [place] [address] 11/13/2023 11:45 AM EDT Office Visit Gynecology/Obstetrics [facility] [address] [place] [address] BackLeslee mora CRNP [address] [place] [address] 11/20/2023 11:30 AM EDT Office Visit Gynecology/Obstetrics [facility] [address] [place] [address] BackLeslee mora CRNP [address] [place] [address] Health Maintenance Due Date Last Done Comments Hepatitis B (1 of 3 - 19+ 3- dose series) 2010 COVID-19 Vaccine (1 - 2022-2 4 season) 2023 Influenza Vaccine [...]
--- OUTSIDE RECORDS SUMMARY | 2023-11-03 17:06 | External Medical Summary | Continuity of Care Document ---
Author Name Unknown Organization [facility] [address] [facility] 2 Address [address] [phone] Encounter [facility] [place] [id number] Date(s): 09/04/23 - 09/04/23 [facility] [address] [facility] 2 [address] [facility] 2 [place], [place] [phone] Encounter Diagnosis Changing skin lesion(Discharge Diagnosis) - 09/04/23 Discharge Disposition: Home or Self Care Attending Physician: KULDIP Vega Dawn M Referring Physician: KULDIP Vega Dawn M Allergies, Adverse Reactions, Alerts Substance Reaction Severity Status Bactrim Hives Active Medications Multivitamins with Vitamin B Complex, Vitamin C, Minerals and L- Methylfolate oral capsule Start: 10/11/22 9:06:00 EDT Start Date: 10/11/22 Status: Ordered Mental Status 09/04/23 Barriers to Learning one year None evide nt Mandatory Health Literacy Documentation Yes Health Literacy Communication Barriers N ever Primary Language Citizen Of [place] Problem List No Chronic Problems Diagnosis Diagnosis Type Effective Dates Health Status Cl inical Service Informant Changing skin lesion Discharge Diagnosis 09/04/23 Procedures Procedure Date Related Diagnosis Body Site Status Shave biopsy of skin 09/04/23 Comp leted Surgery 1 Completed 1multiple surgeries left knee Social History Social History Type Response Smoking Status Never smoked cigaret delmy Sex Dermatology Outpt Proc * KULDIP Vega Dawn M: PERFORM, MODIFY Event Display: Dermatology Outpt Proc Authored Date: [id number] DERMATOLOGY OUTPATIENT PROCEDURE NOTE Name: EDSON DOHERTY Patient Number: [id number] : 1990 Date of Service: 09/04/2023 _ Diagnosis: changing skin lesion Location: left areola Indication: cracking and bleeding easily, painful and worsening x weeks Procedure Note A shave skin biopsy LEFT AREOLA was performed after a time out (patient identified with full name and date, site located and confirmed with team members) and verbal informed consent was obtained. Risks (infection, scar, bleeding) and benefits (proper diagnosis and treatment) were reviewed. Alternative options were discussed if applicable. Time was given to address and answer all questions. Photograph was taken to document location. Skin prep: isopropyl alcohol Anesthesia: 1% lidocaine Shave biopsy with derm blade. Hemostasis/Closure: aluminum chloride Dressing: sterile Verbal and written wound care instructions given. Patient was informed that further procedure(s) or treatment(s) may be needed pending pathology results. Patient is instructed to call should any problems or concerns arise. The patient agreed to call the office to obtain the test results if they have not been communicated to them within 2 weeks. Patient left after procedure in good condition. Call with questions or concerns. Follow up as scheduled. Patient in agreement with plan. Electronic Signature on File Electronically Reviewed/Signed by: COLT Jarrett Author Signature Dt/Tm:09/04/2023 03:31 PM Department of Family Medicine Department of Dermatology [facility]
--- OUTSIDE RECORDS SUMMARY | 2023-11-03 17:06 | External Medical Summary | Summary of Care ---
Author Name Unknown Organization [facility] Address [address] [facility] [address] Phone [phone] Care Team Providers Care Churn Operator Margarine Name Role Phone Unavailable Primary Care Provider Unavailabl e Reason for Visit * Reason Comments Return Visit Encounter Details Date Type Department Care Team (Late st Contact Info) Description 10/16/2023 8:15 AM EDT Office Visit Gynecology/Obstetric s [facility] [address] [place] [address] Diamond Cerna CRNP [address] [place] [address] Supervision of other normal , antepartum*; Rh [...] money to get more. Never true 07/10/2023 [place] Depression Scale Answer Date Recorded [place] Depression Scale Total 1 10/02/2023 The thought [...] 10/30/2023 11:30 AM EDT Office Visit Gynecology/Obstetrics [address] [place] [address] Leslee Mena CRNP [address] [place] [address] 11/06/2023 10:30 AM EDT Office Visit Gynecology/Obstetrics [facility] [address] [place] [address] Diamond Cerna CRNP [address] [place] [address] 11/13/2023 11:45 AM EDT Office Visit Gynecology/Obstetrics [facility] [address] [place] [address] Leslee Mena CRNP [address] [place] [address] 11/20/2023 11:30 AM EDT Office Visit Gynecology/Obstetrics [facility] [address] [place] [address] Leslee Mena CRNP [address] [place] [address] Health Maintenance Due Date Last Done Comments [...] mother, antepartum condition Abnormal findings on screening documented in this encounter
--- OUTSIDE RECORDS SUMMARY | 2023-11-03 17:06 | External Medical Summary | Summary of Care ---
Author Name Unknown Organization [facility] Address [address] [place] [facility] [place] [address] Phone [phone] Care Team Providers Care Bad Work Gatherer Name Role Phone Unavailable Primary Care Provider Unavailabl e Reason for Visit * Reason Comments Outpatient Testing Encounter Details Date Type Department Care Team (Late st Contact Info) Description 09/04/2023 9:00 AM EST Laboratory [facility], [facility] [address] [facility] [place] [phone] [facility] [address] [facility] [address] Supervision of other normal , antepartum; Rh negative status during in second trimester Allergies Active Allergy Reactions Criticality Noted Date Comments Sulfamethoxazole-Trimethoprim Hives 2022 documented as of this encounter (statuses as of 09/04/2023) Medications Medication Sig Dispensed Refills Start Date End Date Status 19 29-1 MG Oral Tablet Chewable Take by mouth. 0 Activ e Hospital, Clinic, or Other Facility Administered Medication Ordered Dose Route Frequency Start Date End Date Status Rho D Immune Globulin (Rhophylac) inj 300 mcgIndications:Rh negative status during in third trimester 300 mcg IM ONCE 09/04/2023 09/04/2023 Active documented as of this encounter (statuses as of 09/04/2023) Active Problems Problem Noted Date Diagnosed Date [...] as of this encounter (statuses as of 09/04/2023) Social History Tobacco Use Types Packs/Day Years [...] as of this encounter Plan of Treatment Pending Results Name Type Priority Associated Diagnoses Date /Time 50-G GESTATIONAL GLUCOSE, 1 HOUR Lab Routine Supervision of other normal , antepartum 09/04/2023 10:20 AM EST CBC WITH WBC DIFFERENTIAL AND ANEMIA REFLEX WORKUP Lab Routine Supervision of other normal , antepartum 09/04/2023 10:20 AM EST SYPHILIS ANTIBODY SCREEN WITH REFLEX TO RPR Lab Routine Supervision of other normal , antepartum 09/04/2023 10:20 AM EST TYPE AND SCREEN Lab Routine Supervision of other normal , antepartum Rh negative status during in second trimester 09/04/2023 10:20 AM EST ANEMIA CBC Lab Routine Supervision of other normal , antepartum 09/04/2023 10:20 AM EST DIFFERENTIAL, AUTOMATED Lab Routine Supervision of other normal , antepartum 09/04/2023 10:20 AM EST ANEMIA REFLEX CHEMISTRY HOLD Lab Routine Supervision of other normal , antepartum 09/04/2023 10:20 AM EST SYPHILIS ANTIBODY SCREEN Lab Routine Supervision of other normal , antepartum 09/04/2023 10:20 AM EST Health Maintenance Due Date Last Done Comments [...] Diagnoses Diagnosis Supervision of other normal , antepartum Rh negative status during in second trimester documented in this encounter
--- OUTSIDE RECORDS SUMMARY | 2023-11-03 17:06 | External Medical Summary | Summary of Care ---
Author Name Unknown Organization [facility] Address [address] [place] [place] [address] Phone [phone] Care Team Providers Care Hide Examiner Name Role Phone Unavailable Primary Care Provider Unavailabl e Encounter Details Date Type Department Care Team (Late st Contact Info) Description 10/09/2023 Telephone [facility] [address] [place] [address] Rafaela Schuster PA-C [address] [place] [address] Allergies Active Allergy Reactions Criticality Noted Date Comments Sulfamethoxazole-Trimethoprim Hives 2022 documented as of this encounter (statuses as of 10/10/2023) Medications Medication Sig Dispensed Refills Start Date End Date Status 19 29-1 MG Oral Tablet Chewable Take by mouth. 0 Activ e documented as of this encounter (statuses as of 10/10/2023) Active Problems Problem Noted Date Diagnosed Date [...] as of this encounter (statuses as of 10/10/2023) Immunizations Name Administration Dates Next Due TDAP [...] money to get more. Never true 07/10/2023 [place] Depression Scale Answer Date Recorded [place] Depression Scale Total 1 10/02/2023 The thought [...] encounter Miscellaneous Notes * Telephone Encounter - uAdrey Ham RN - 10/10/2023 9:14 AM EDT Patient called and made aware of below. She will contact [facility] to review prior to getting labs. * Telephone Encounter - Rafaela Schuster PA-C - 10/10/2023 7:42 AM EDT She was not anemic from last lab, so there is no concerns from that standpoint of drawing lab. However, because she is talking about labs that [facility] ordered for her would recommend she reach out to them regarding specific question about lab draw. * Telephone Encounter - Audrey Ham RN - 10/09/2023 12:35 PM EDT Patient calling in. States that [facility] order for chromosome analysis blood work back in June, they have been waiting for the Okay from insurance to have this testing done. Patient states she got the ok from insurance but wanted to verify with us that she is okay for a stand point to have the lab drawn. Is this a question that she should reach out to [facility] about? She was just concerned because she said they draw a lot of blood for this lab ? Please advise. documented in this encounter Plan of Treatment Upcoming Encounters Date Type Department Care Team (Late st Contact Info) Description 10/16/2023 8:15 AM EDT Office Visit Gynecology/Obstetrics [facility] [address] [place] [address] Diamond Cerna CRNP [address] [place] [address] 10/30/2023 11:30 AM EDT Office Visit Gynecology/Obstetrics [facility] [address] [place] [address] Leslee Mena CRNP [address] [place] [address] 11/06/2023 10:30 AM EDT Office Visit Gynecology/Obstetrics [facility] [address] [place] [address] Diamond Cerna CRNP [address] [place] [address] 11/13/2023 11:45 AM EDT Office Visit Gynecology/Obstetrics [facility] [address] [place] [address] Leslee Mena CRNP [address] [place] [address] 11/20/2023 11:30 AM EDT Office Visit Gynecology/Obstetrics [facility] [address] [place] [address] Leslee Mena CRNP [address] [place] [address] Health Maintenance Due Date Last Done Comments [...]
--- OUTSIDE RECORDS SUMMARY | 2023-11-03 17:06 | External Medical Summary ---
Author Name Unknown Address Unknown Organization K01:LABORATORY [facility] - [address] [place] [address] Laboratory Report Ordering Provider Test Date Status ISHAN MCCLENDON 09/04/2023 10:20:53 Final Observation Date Value Abnormality Reference (Units ) Status ABO 09/04/2023 10:20:53 O Final RH 09/04/2023 10:20:53 Negative Final RED BLOOD CELL ANTIBODY SCREEN 09/04/2023 10:20:53 Negative Final SPECIMEN EXPIRATION DATE 09/04/2023 10:20:53 09/07/2023 23:59 Final Performing Location LABORATORY [facility] - [address] [place] [address]
--- OUTSIDE RECORDS SUMMARY | 2023-11-03 17:06 | External Medical Summary | Summary of Care ---
Author Name Unknown Organization [facility] Address [address] [place] [facility] [place] [address] Phone [phone] Care Team Providers Care Finish Repair Worker Name Role Phone Unavailable Primary Care Provider Unavailabl e Reason for Visit * Reason Comments Outpatient Testing Encounter Details Date Type Department Care Team (Late st Contact Info) Description 09/04/2023 9:00 AM EST Laboratory Laboratory, [facility] [address] [facility] [place] [phone] [facility] [address] [facility] [address] Supervision of other normal , antepartum; Rh [...]
--- OUTSIDE RECORDS SUMMARY | 2023-11-03 17:06 | External Medical Summary | Summary of Care ---
Author Name Unknown Organization [facility] Address [address] [facility] [address] Phone [phone] Care Team Providers Care Plumbing Contractor Name Role Phone Unavailable Primary Care Provider Unavailabl e Reason for Visit * Reason Comments Return Visit Encounter Details Date Type Department Care Team (Late st Contact Info) Description 10/16/2023 8:15 AM EDT Office Visit Gynecology/Obstetric s [facility] [address] [place] [address] Diamond Cerna CRNP [address] [place] [address] Supervision of other normal , antepartum*; Rh [...] to get more. Never true 07/10/2023 [place] Depression Scale Answer Date Recorded [place] Depression Scale Total 1 10/02/2023 The thought [...] 10/30/2023 11:30 AM EDT Office Visit Gynecology/Obstetrics [address] [place] [address] Leslee Mena CRNP [address] [place] [address] 11/06/2023 10:30 AM EDT Office Visit Gynecology/Obstetrics [facility] [address] [place], [place] [address] Diamond Cerna CRNP [address] [place], [place] [address] 11/13/2023 11:45 AM EDT Office Visit Gynecology/Obstetrics [facility] [address] [place] [address] Leslee Mena CRNP [address] [place] [address] 11/20/2023 11:30 AM EDT Office Visit Gynecology/Obstetrics [facility] [address] [place] [address] Leslee Mena CRNP [address] [place] [address] Health Maintenance Due Date Last Done Comments [...]
--- OUTSIDE RECORDS SUMMARY | 2023-11-03 17:06 | External Medical Summary | Summary of Care ---
Author Name Unknown Organization [facility] Address [address] [place] [facility] [place] [address] Phone [phone] Care Team Providers Care Decorative Engraver Apprentice Name Role Phone Unavailable Primary Care Provider Unavailabl e Reason for Visit * Reason Comments Outpatient Testing Encounter Details Date Type Department Care Team (Late st Contact Info) Description 09/04/2023 9:00 AM EST Laboratory Laboratory, [facility] [place] [phone] [facility] [address] [facility] [address] Supervision of other normal , antepartum; Rh [...]
--- OUTSIDE RECORDS SUMMARY | 2023-11-03 17:06 | External Medical Summary | Summary of Care ---
Author Name Unknown Organization [facility] [address] [address] Phone [phone] Care Team Providers Care Bridge Leverman Name Role Phone Unavailable Primary Care Provider Unavailabl e Reason for Visit * Reason Onset Date Comments Return Visit Medication Administration 09/04/2023 Flu an d/or Pneumo Inj Encounter Details Date Type Department Care Team (Late st Contact Info) Description 09/04/2023 9:30 AM EST Office Visit Gynecology/Obstetric s [facility] [address] [place] [address] Diamond Cerna CRNP [address] [place] [address] Supervision of other normal , antepartum*; Rh negative status during in third trimester; Abnormal findings on screening; Need for prophylactic vaccination with combined mdialqdzww-mbsopjv-xj rtussis (DTP) vaccine Allergies Active Allergy Reactions Criticality Noted Date [...] trimester 300 mcg IM ONCE 09/04/2023 09/04/2023 Ended documented as of this encounter (statuses [...] of this encounter (statuses as of 09/04/2023) Immunizations Name Administration Dates Next Due TDAP [...] money to buy more. Never true 07/10/20 23 Within the past 12 months, t he [...] Sign Reading Time Taken Comments Blood Pressure 120/70 09/04/2023 9:21 AM EST Pulse - - Temperature - - Respiratory Rate - - Oxygen Saturation - - Inhaled Oxygen Concentration - - Weight 83.5 kg (184 lb) 09/04/2023 9:21 AM EST Height 175.3 cm (5' 9") 09/04/2023 9:21 AM EST Body Mass Index 27.17 09/04/2023 9:21 AM EST documented in this encounter Progress Notes * Diamond Cerna CRNP - 09/04/2023 9:40 AM EST 28w5d Has a seborrheic keratosis on nipple, has seen derm for it in the past. Has gotten larger during , concerned it will interfere with . Encouraged her to discuss with derm again. Baby is active. No contractions or bleeding. Glucola, TDAP, Rhogam today. SHARON Victoria * Zaira Hussein LPN - 09/04/2023 9:21 AM EST 28w5d Doing glucola today Needs rhogam Has a spot on left nipple started to cause discomfort Face hair is getting worse sloane on neck asking if she can use bleaching agent for this documented in this encounter Nursing Notes * Zaira Hussein LPN - 09/04/2023 10:30 AM EST Patient here for rhogam injection. Patient doing well no complaints. Injection given IM as ordered.Patient tolerated well. Patient to follow up as directed. Patient instructed to call if any complications. Patient verbalized understanding of instructions given and her follow up appt for 2 weeks Injection site: Left Gluteus Medication Source: Dispensed stock medication Patient here for tdap injection. Patient doing well no complaints. Injection given IM as ordered. Patient tolerated well. Patient to follow up as directed. Patient instructed to call if any complications. Patient verbalized understanding of instructions given and her follow up appt for 2 weeks Injection site: Left Deltoid Medication Source: Dispensed stock medication documented in this encounter Plan of Treatment Upcoming Encounters Date Type Department Care Team (Late st Contact Info) Description 09/18/2023 8:45 AM EST [facility] [address] [place] [address] Diamond Cerna CRNP [address] [place] [address] Health Maintenance Due Date Last Done Comments Hepatitis B (1 of 3 - 3-dose series) 1990 COVID-19 Vaccine (#1) 01/18/1992 Influenza Vaccine (FLU shot) (#1) 2023 Depression [...] in third trimester Abnormal findings on screening Need for prophylactic vaccination with combined rgyzasnyhq-foyvqbg-zvqgwgnnt (DTP) vaccine documented in this encounter Administered Medications Inactive Administered Medications - up to 3 most recent administrations Medication Order MAR Action Action Date Dose Rate Site Rho D Immune Globulin (Rhophylac) inj 300 mcg 300 mcg, Intramuscular, ONCE, On Sat09/04/23 at 1015, For 1 dose, Do not administer until type and screen has been collected! 1 MCG = 5 INTERNATIONAL UNITS Given 09/04/2023 10:47 AM EST 300 mcg Dorsogluteal Left documented in this encounter
--- OUTSIDE RECORDS SUMMARY | 2023-11-03 17:06 | External Medical Summary ---
Author Name Unknown Address Unknown Organization K01:[place] [place] [facility] [address] [place] [address] Laboratory Report Ordering Provider Test Date Status ISHAN MCCLENDON 09/04/2023 10:20:53 Final Observation Date Value Abnormality Reference (Units ) Status WBC, Total 09/04/2023 10:20:53 7.72 4.00-10.8 0 (K/uL) Final RBC 09/04/2023 10:20:53 3.57 3.85-5.15 (M/uL) Final Hemoglobin 09/04/2023 10:20:53 12.6 12.0-15.3 (g/dL) Final Anemia reflex testing trigge rs on a HGB < 12.0 for Females and HGB < 13.0 for Males in accordance with the WHO Anemia Guidelines
Anemia reflex testing triggers on a HGB < 12.0 for Females and HGB < 13.0 for Males in accordance with the WHO Anemia Guidelines HCT 09/04/2023 10:20:53 37.3 36.0-45.2 (%) Final MCV 09/04/2023 10:20:53 104.5 81.5-97.5 (fL) Final MCH 09/04/2023 10:20:53 35.3 27.0-34.0 (pg) Final MCHC 09/04/2023 10:20:53 33.8 32.0-36.0 (g/dL) Final RDW 09/04/2023 10:20:53 12.9 11.5-15.5 (%) Final Platelets 09/04/2023 10:20:53 253 140-400 (K /uL) Final MPV 09/04/2023 10:20:53 10.3 6.6-11.1 ( fL) Final Nucleated erythrocytes/100 leukocytes [Ratio] in Blood by Automated count 09/04/2023 10:20:53 0 <=0 (/100 WBCs) Fi nal Performing Location [facility] [place] [address] [place] [address]
--- OUTSIDE RECORDS SUMMARY | 2023-11-03 17:06 | External Medical Summary ---
Author Name Unknown Address Unknown Organization K01:LABORATORY [facility] [place] - [address] [place] [address] Laboratory Report Ordering Provider Test Date Status ISHAN MCCLENDON 09/04/2023 10:20:53 Final Observation Date Value Abnormality Reference (Units ) Status Treponema pallidum Ab [Presence] in Serum by Immunoassay 09/04/2023 10:20:53 Nonreactive Nonreactive Final No serologic evidence of syp hilis. No additional testing clinicially indicated at this time. Consider repeat testing in 2-4 weeks if acute or primary syphilis is suspected. Performing Location LABORATORY [facility] [place] - [address] [place] [address]
--- OUTSIDE RECORDS SUMMARY | 2023-11-03 17:06 | External Medical Summary | Summary of Care ---
Author Name Unknown Organization [facility] Address [address] [facility] [place] [address] Phone [phone] Care Team Providers Care Clinical Rn Manager Name Role Phone Unavailable Primary Care Provider Unavailabl e Encounter Details Date Type Department Care Team (Late st Contact Info) Description 10/09/2023 Telephone [facility] [address] [place] [address] Rafaela Schuster PA-C [address] [place] [address] Allergies Active Allergy Reactions Criticality Noted Date [...] money to get more. Never true 07/10/2023 [place] Depression Scale Answer Date Recorded [place] Depression Scale Total 1 10/02/2023 The thought [...] encounter Miscellaneous Notes * Telephone Encounter - Rafaela Schuster PA-C - 10/10/2023 7:42 AM EDT She was not anemic from last lab, so there is no concerns from that standpoint of drawing lab. However, because she is talking about labs that [facility] ordered for her would recommend she [...] question that she should reach out to [facility] about? She was just concerned because she said they draw a lot of blood for this lab ? Please advise. documented in this encounter Plan of Treatment Upcoming Encounters Date Type Department Care Team (Late st Contact Info) Description 10/16/2023 8:15 AM EDT Office Visit Gynecology/Obstetrics [facility] [address] [place] [address] Diamond Cerna CRNP [address] [place] [address] 10/30/2023 11:30 AM EDT Office Visit Gynecology/Obstetrics [facility] [address] [place] [address] Leslee Mena CRNP [address] [place] [address] 11/06/2023 10:30 AM EDT Office Visit Gynecology/Obstetrics [facility] [address] [place] [address] Diamond Cerna CRNP [address] [place] [address] 11/13/2023 11:45 AM EDT Office Visit Gynecology/Obstetrics [facility] [address] [place] [address] Leslee Mena CRNP [address] [place] [address] 11/20/2023 11:30 AM EDT Office Visit Gynecology/Obstetrics [facility] [address] [place] [address] Leslee Mena CRNP [address] [place], [place] [address] Health Maintenance Due Date Last Done Comments [...]
--- OUTSIDE RECORDS SUMMARY | 2023-11-03 17:06 | External Medical Summary | Summary of Care ---
Author Name Unknown Organization [facility] Address [address] [place] [address] Phone [phone] Care Team Providers Care Header Set Up Operator Name Role Phone Unavailable Primary Care Provider Unavailabl e Encounter Details Date Type Department Care Team (Late st Contact Info) Description 10/09/2023 Telephone [facility] [address] [place] [address] Rafaela Schuster PA-C [address] [place] [address] Allergies Active Allergy Reactions Criticality Noted Date Comments Sulfamethoxazole-Trimethoprim Hives 2022 documented as of this encounter (statuses as of 10/09/2023) Medications Medication Sig Dispensed Refills Start Date End Date Status 19 29-1 MG Oral Tablet Chewable Take by mouth. 0 Activ e documented as of this encounter (statuses as of 10/09/2023) Active Problems Problem Noted Date Diagnosed Date [...] as of this encounter (statuses as of 10/09/2023) Immunizations Name Administration Dates Next Due TDAP [...] money to get more. Never true 07/10/2023 [place] Depression Scale Answer Date Recorded [place] Depression Scale Total 1 10/02/2023 The thought [...] PM EDT Patient calling in. States that [facility] place order for chromosome analysis blood work back in June, they have been waiting for the Okay from insurance to have this testing done. Patient states she got the ok from insurance but wanted to verify with us that she is okay for a stand point to have the lab drawn. Is this a question that she should reach out to [facility] about? She was just concerned because she said they draw a lot of blood for this lab ? Please advise. documented in this encounter Plan of Treatment Upcoming Encounters Date Type Department Care Team (Late st Contact Info) Description 10/16/2023 8:15 AM EDT Office Visit Gynecology/Obstetrics [facility] [address] [place] [address] Diamond Cerna CRNP [address] [place] [address] 10/30/2023 11:30 AM EDT Office Visit Gynecology/Obstetrics [facility] [address] [place] [address] Leslee Mena CRNP [address] [place] [address] 11/06/2023 10:30 AM EDT Office Visit Gynecology/Obstetrics [facility] [address] [place] [address] Diamond Cerna CRNP [address] [place] [address] 11/13/2023 11:45 AM EDT Office Visit Gynecology/Obstetrics [facility] [address] [place] [address] Leslee Mena CRNP [address] [place] [address] 11/20/2023 11:30 AM EDT Office Visit Gynecology/Obstetrics [facility] [address] [place] [address] Leslee Mena CRNP [address] [place] [address] Health Maintenance Due Date Last Done Comments [...]
--- OUTSIDE RECORDS SUMMARY | 2023-11-03 17:07 | External Medical Summary | Summary of Care ---
Author Name Unknown Organization [facility] Address [address] [place] [address] Phone [phone] Care Team Providers Care Deputy Of Counter Intelligence Name Role Phone Unavailable Primary Care Provider Unavailabl e Reason for Referral * Evaluate & Treat - Unlimited Visits (Within 3 days (urgent)) - Pending Review Specialty Diagnoses / Procedures Referred By Nidia machado Referred To Contact Medical Genetics / Hematology Oncology Diagnoses Abnormal findings on screening Leslee Mena CRNP [address] [place] [address] Referral ID Status Reason Start Date Expiration Date Visits Requested Visits Authorized [id number] Pending Review Specialty Services Required 06/03/[phone] Question Answer Referral Priority Within 3 days (urgent) Where should this appointment be scheduled? [facility] Is this referral request related to one of the following genetics sub-specialties? If unsure of category, use Medical Genetics Ask-A-Doc. /Preconception Reason for Visit * Reason Onset Date Comments Test Results 06/03/2023 Encounter Details Date Type Department Care Team (Late st Contact Info) Description 06/03/2023 Telephone Gynecology/Obstetrics [facility] [address] [place] [place] [address] Leslee Mena CRNP [address] [place] [address] Test Results Allergies Active Allergy Reactions Criticality Noted Date Comments Sulfamethoxazole-Trimethoprim Hives 2022 documented as of this encounter (statuses as of 06/03/2023) Medications Medication Sig Dispensed Refills Start Date End Date Status 19 29-1 MG Oral Tablet Chewable Take by mouth. 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 Discussed Qnatal results: low risk T21, T18, T13, +Y chromosome/male fetus. Indeterminate sex chromosome aneuploidy. Advised pt of genetic counseling referral to review additional testing options, she is agreeable. SHARON Sandy documented in this encounter Plan of Treatment Upcoming Encounters Date Type Department Care Team (Late st Contact Info) Description 06/10/2023 11:45 AM EST Office Visit Gynecology/Obstetrics [facility] [address] [facility] [place] [place] [address] Sujatha Gonzalez CNM [address] [facility] [place] [address] Scheduled Referrals Name Type Priority Associated Diagnoses Orde r Schedule GENETICS REFERRAL OP Referral Within 3 days (urgent) Abnormal findings on screening Ordered: 06/03/2023 Health Maintenance Due Date Last Done Comments [...] as of this encounter Visit Diagnoses Diagnosis Abnormal findings on screening- Primary documented in this encounter
--- OUTSIDE RECORDS SUMMARY | 2023-11-03 17:07 | External Medical Summary | Summary of Care ---
Author Name Unknown Organization [facility] Address [address] [facility] [place] [address] Phone [phone] Care Team Providers Care Ram Car Operator Name Role Phone Unavailable Primary Care Provider Unavailabl e Reason for Visit * Reason Comments Outpatient Testing Encounter Details Date Type Department Care Team (Late st Contact Info) Description 06/10/2023 1:00 PM EST Laboratory Laboratory, [facility] [address] [place] [id number] [facility] [address] [place] [address] Arrived Allergies Active Allergy Reactions Criticality Noted Date Comments Sulfamethoxazole-Trimethoprim Hives 2022 documented as of this encounter (statuses as of 06/10/2023) Medications Medication Sig Dispensed Refills Start Date End Date Status 19 29-1 MG Oral Tablet Chewable Take by mouth. 0 Activ e documented as of this encounter (statuses as of 06/10/2023) Active Problems Problem Noted Date Diagnosed Date [...] as of this encounter (statuses as of 06/10/2023) Social History Tobacco Use Types Packs/Day Years [...] money to buy more. Never true 10/17/19 23 Within the past 12 months, t [...] Description 06/11/2023 8:30 AM EST Office Visit Associate Director Finance Obstetrics Maternal Medicine, [place] [address] [place] [address] [place], [address] [place] [address] 06/11/2023 8:30 AM EST Imaging Radiology [facility] [address] [place] [address] 07/09/2023 11:45 AM EST Office Visit Gynecology/Obstetrics [facility] [address] [place] [address] Leslee Mena CRNP [address] [place] [place] [address] Health Maintenance Due Date Last Done Comments [...]
--- OUTSIDE RECORDS SUMMARY | 2023-11-03 17:07 | External Medical Summary | Summary of Care ---
Author Name Unknown Organization [facility] Address [address] [place] [address] Phone [phone] Care Team Providers Care Marine Radio Installer And Servicer Name Role Phone Unavailable Primary Care Provider Unavailabl e Reason for Visit * Reason Comments Return Visit Encounter Details Date Type Department Care Team (Late st Contact Info) Description 06/10/2023 11:45 AM EST Office Visit Gynecology/Obstetric [facility] [address] [facility] [place] [address] Sujatha Gonzalez, [facility] [address] [facility] [place] [phone] Supervision of other normal , antepartum*; Rh negative status during in second trimester; Abnormal findings on screening Allergies Active [...] Reading Time Taken Comments Blood Pressure 120/70 06/10/2023 11:31 AM EST Pulse - - Temperature - - Respiratory Rate - - Oxygen Saturation - - Inhaled Oxygen Concentration - - Weight 74.5 kg (164 lb 3.2 oz) 06/10/2023 11:31 AM EST Height 175.3 cm (5' 9") 06/10/2023 11:31 AM EST Body Mass Index 24.25 06/10/2023 11:31 AM EST documented in this encounter Progress Notes * Sujatha Gonzalez CNM - 06/10/2023 11:46 AM EST Sheron Benton is a 32 year old female here for her routine OB appointment at 16w3d Her Estimated Date of Delivery: 11/22/23 REVIEW OF SYSTEMS: She has not yet felt movement. Denies vaginal bleeding, LOF, contractions, N/V, headaches, vision changes, and RUQ pain. Reports occasional nausea and constipation. Denies vomiting. PHYSICAL EXAM: Filed Vitals: 06/10/23 1131 BP: 120/70 Weight: 74.5 kg (164 lb 3.2 oz) Height: 1.753 m (5' 9") +FHT 150-160 bpm ASSESSMENT/PLAN: (O26.899, Z67.91) Rh negative status during Plan: -Encouraged patient to call our office if she does elect termination so she can receive rhogam. (O28.9) Abnormal findings on screening Plan: -Patient's Qnatal showed indeterminate sex chromosome -She has been seen by genetics counselor and MFM -Amniocentesis scheduled for tomorrow -Patient is considering termination, depending on results of amniocentesis. -Discussed options of termination, adoption, and parenting. Discussed that patient would need to goto [facility] [place] if she does desire termination. Referred patient to the [facility] ([facility]) in [place], [place], for education about options. She is aware that [facility] in [place] will perform terminations and [facility] will not refer for terminations. (Z34.80) Supervision of other normal , antepartum (primary encounter diagnosis) Plan: - recommended flu vaccine; patient declined. - anatomy u/s due in 4 weeks; patient may schedule with [facility] depending on tomorrow's amniocentesis results - discussed MSAFP and role in detecting open neural tube defects. Patient elects MSAFP. Order placed. Discussed that this must be drawn by 18 weeks but does not have to be drawn today. - RTO in 4 weeks Sujatha Gonzalez CNM * Crista Jamison LPN - 06/10/2023 11:36 AM EST 16w3d Pt denies any concerns. documented in this encounter Plan of Treatment Upcoming Encounters Date Type Department Care Team (Late st Contact Info) Description 06/11/2023 8:30 AM EST Office Visit Substation Wireman Obstetrics Maternal Medicine, [address] [address] [place], [address] [place] [address] 06/11/2023 8:30 AM EST Imaging Radiology [facility] [address] [place] [address] 07/09/2023 11:45 AM EST Office Visit Gynecology/Obstetrics [facility] [address] [facility] [place] [address] BackerLeslee CRNP [address] [place] [address] Pending Results Name Type Priority Associated Diagnoses Date /Time MATERNAL SERUM AFP Lab Routine Supervision of other normal , antepartum 06/10/2023 12:55 PM EST Health Maintenance Due Date Last Done [...] antepartum- Primary Rh negative status during in second trimester Abnormal findings on screening documented in this encounter
--- OUTSIDE RECORDS SUMMARY | 2023-11-03 17:07 | External Medical Summary | Summary of Care ---
Author Name Unknown Organization [facility] Address [address] [place] [address] Phone [phone] Care Team Providers Care Art Supervisor Name Role Phone Unavailable Primary Care Provider Unavailabl e Reason for Visit * Reason Onset Date Comments Test Results 06/13/2023 Microarray on am niotic fluid Encounter Details Date Type Department Care Team (Late st Contact Info) Description 06/13/2023 Telephone Tyre Fitter Obstetrics Maternal Medicine, [place] [address] [place], [place] [id number] Janet Koch, MS [address] [place], [place] [id number] Test Results (Microarray on amniotic fluid) Allergies Active Allergy Reactions Criticality Noted Date Comments Sulfamethoxazole-Trimethoprim Hives 2022 documented as of this encounter (statuses as of 06/14/2023) Medications Medication Sig Dispensed Refills Start Date End Date Status 19 29-1 MG Oral Tablet Chewable Take by mouth. 0 Activ e documented as of this encounter (statuses as of 06/14/2023) Active Problems Problem Noted Date Diagnosed Date [...] covered by insurance. Last Assessment & Plan: Indeterminate sex chromosomes on cffDNA. Patient received genetic counseling prior to amniocentesis and was informed of a 1/500 risk of loss associated with this procedure. She also understands the risks of bleeding, infection, rupture of membranes and insufficient sample acquisition. She is Rh negative, therefore RhIg is indicated. Infectious studies (including HIV and Hepatitis B) are negative. Following consent and a timeout, a successful amniocentesis was performed with one needle insertion (6.0 , 20 gauge). The first 1 cc was extracted and discarded; 31 cc were withdrawn and the fluid was sent for microarray. The placenta was not traversed and the fluid appeared straw yellow. heart rate was in the normal range post-procedure. The patient tolerated the procedure well and there were no apparent complications. Post- procedure precautions were given to the patient. The patient will be informed of the genetic testing results from our genetic counselor. Supervision of other normal , antepartu m 04/17/2023 Rh negative status during 04/17/2023 Overview: Received Rhogam 03/14/23 for bleeding in early Estimated Date of Delivery Comme nts Yes 11/22/2023 Based on last me nstrual period of 02/15/2023 documented as of this encounter (statuses as of 06/14/2023) Social History Tobacco Use Types Packs/Day Years [...] Telephone Encounter - Janet Koch MS - 06/13/2023 1:28 PM EST Microarray results on amniotic fluid resulted as normal male, no evidence of Klinefelter syndrome. We discussed that this does not rule out mosaicism less than 10%. Reviewed option for maternal genetic testing to rule out X chromosome alteration. Patient interested if covered by insurance. Patient desires anatomy scan with Radiology in [facility] [place] [facility] due to distance, in light of normal results . Janet Koch MS [facility] Board-Certified & Licensed Genetic Counselor [phone] documented in this encounter Plan of Treatment Upcoming Encounters Date Type Department Care Team (Late st Contact Info) Description 07/09/2023 11:45 AM EST Office Visit Gynecology/Obstetrics [facility] [address] [place] [address] Backer, SHARON Diaz [address] [place] [place] [address] Health Maintenance Due Date Last Done Comments [...]
--- OUTSIDE RECORDS SUMMARY | 2023-11-03 17:07 | External Medical Summary | Summary of Care ---
Author Name Unknown Organization [facility] Address [address] [place] [address] Phone [phone] Care Team Providers Care Float Builder Name Role Phone Unavailable Primary Care Provider Unavailabl e Reason for Visit * Reason Comments Genetic Counseling * Evaluate & Treat - Unlimited Visits (Within 3 days (urgent)) - Authorized Specialty Diagnoses / Procedures Referred By Nidia machado Referred To Contact Medical Genetics / Hematology Oncology Diagnoses Abnormal findings on screening Leslee Mena CRNP [address] [facility] [place] [address] Referral ID Status Reason Start Date Expiration Date Visits Requested Visits Authorized [id number] Authorized Specialty Services Required 06/03/2023 06/03/[phone] Encounter Details Date Type Department Care Team (Late st Contact Info) Description 06/04/2023 10:00 AM EST Telemedicine Sales Representative Graphic Art Obstetrics Maternal Medicine, [place] [address] [place], [place] [phone] Janet Koch, MS [address] [place] [address] Abnormal findings on screening*; 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 0 Activ e documented as of this encounter (statuses as of 06/04/2023) Active Problems Problem Noted Date Diagnosed Date [...] as of this encounter (statuses as of 06/04/2023) Social History Tobacco Use Types Packs/Day Years [...] as of this encounter Progress Notes * Janet Koch, MS - 06/04/2023 10:34 AM EST Patient location: HOME. I was not in a hospital or clinic location. After connecting through [employer], patient was verified with two unique identifiers. Patient (or authorized legal business center representative) was then informed that this was a Telemedicine visit and being conducted confidentially over secure lines. Methods to assure confidentiality were taken. Patient acknowledged consent and understanding of privacy and security of the Telemedicine visit. The patient agreed to participate. GENETIC COUNSELING FOR MATERNAL MEDICINE Sheron Benton 06/04/2023 Referring provider: SHARON Han Seen previously by Genetic Counseling: no REASON FOR CONSULT: Sheron Benton is a 32 year old year old woman with an Estimated Date of Delivery: 11/22/23, placing her at approximately 15 weeks 4 days gestation at the time of our consultation. The patient was unaccompanied. Opal Man, student was also present. Ms. Sheron Benton presents for genetic counseling today due to indeterminate sex chromosome result on cell free DNA screening. PARTNER'S INFORMATION: Partner's name is Philip(FOB#[id number]). He does not have children from prior relationships. CURRENT GENETIC LABS: Cell-free DNA screening was negative for trisomy 21, 18 and 13, and indeterminate for sex chromosomes aneuploidy. The baby is male based on cell- free DNA. OB HISTORY: OB History Para Term AB Living 3 2 SAB IAB Ectopic Multiple Live Births 2 # Outcome Date GA Lbr Vern/2nd Weight Sex Delivery Anes PTL Lv 3 Current 2 SAB 07/2022 1 SAB 12/2021 9w0d EXPOSURES/MEDICATION: Reported concern for exposures: no FAMILY HISTORY: - A review of the genetic family history for this patient and her partner was performed, no medicalrecords confirming this information were available at the time of consultation. Significant details noted here: Patient's Family History: Negative, other than on maternal aunt with learning disabilities Partner's Family History: Negative - The remaining and family history showed no evidence of defects, multiple miscarriages, intellectual disability, genetic disease, or significant exposures. COUNSELING: Indeterminate sex chromosome aneuploidy: - NIPT/cfDNA screening results indicated an indeterminate result for the sex chromosomes. - Reviewed with the patient that this could be a normal variant, a false positive, chromosome aneuploidy, microdeletion or microduplication, or could be due to mosaicism. Specifically, since the concern was with the X chromosome we talked about the possible diagnosis of Klinefelter syndrome for thepregnancy. - Reviewed the natural history of Klinefelter syndrome. This condition is characterized by a 47,XXYkaryotype. Affected individuals are typically taller than average and infertile. Many individuals have relatively mild symptoms and may not be diagnosed until puberty or adulthood, if ever. Individuals may have gynecomastia, decreased muscle mass, decreased bone density, and a reduce amount of facial and body hair. Some individuals may have differences in their genitalia. A delay in speech and language development may occur and there is an increased chance for anxiety, depression, impaired social skills, and ADHD. About 10% have autism spectrum disorder. Nearly half of affected individuals dev elop metabolic syndrome, which includes type 2 diabetes, hypertension, increased belly fat, and high lipid levels. They may be at an increased risk to develop breast cancer, osteoporosis, and autoimmune disorders. We also discussed possibility, although rare, of a more severe phenotype that correlates with additional X's. All questions were answered. She did have concerns about raising a child with Klinefelter and is an option for her pending results. - Reviewed that symptoms of a microdeletion or microduplication are determined by which genes are affected. - Discussed the concept of mosaicism and how this may influence severity of symptoms for chromosomedisorders. - We reviewed in detail the technology of NIPT/cffDNA screening. Based on this, we discussed that this finding may be maternal, , or placental in origin. - Due to the possibility of a maternal chromosome condition, maternal testing may be considered if diagnostic testing is normal. - Discussed diagnostic testing. CVS and amniocentesis carry a 1 in 500 risk for miscarriage. - If diagnostic testing is elected, microarray testing will detect chromosome aneuploidy as well asmicrodeletions or microduplications. We also reviewed the different possible test results when completing a microarray, including a positive result, negative result, incidental finding, or variant ofuncertain significance. Microarray testing may also indicate consanguinity or non-paternity. - A echocardiogram should be considered to further evaluate the structure of the heart due tothe correlation between chromosome conditions and cardiac defects. - Discussed the background population risk of 2-3% for defects or intellectual disability in every - Also discussed option for her to have a karyotype to determine if the extra X material is maternal. PLAN: - Amniocentesis scheduled 06/11 at 8:[address] [place], patient desires microarray A total of 35 minutes was spent in telemedicine genetic counseling consultation. Thank you for your consult. Please feel free to call with any questions regarding this report. Janet Koch, Licensed, Certified Genetic Counselor documented in this encounter Plan of Treatment Upcoming Encounters Date Type Department Care Team (Late st Contact Info) Description 06/10/2023 11:45 AM EST Office Visit Gynecology/Obstetrics [facility] [address] 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
--- OUTSIDE RECORDS SUMMARY | 2023-11-03 17:07 | External Medical Summary ---
Author Name Unknown Address Unknown Organization : Laboratory Report Ordering Provider Test Date Status GUSTAVO BAZAN 06/11/2023 08:28:50 Final Observation Date Value Abnormality Reference (Units ) Status REFERENCE LAB SCANNED REPORT 06/11/2023 08:28:50 RESULT SCAN Final Performing Location
--- OUTSIDE RECORDS SUMMARY | 2023-11-03 17:07 | External Medical Summary ---
Author Name Unknown Address Unknown Organization : Laboratory Report Ordering Provider Test Date Status RANCHO PAULINO 06/10/2023 12:55:27 Final Observation Date Value Abnormality Reference (Units ) Status INTERPRETATION 06/10/2023 12:55:27 SEE BELOW Final Screen negative for open NTD . RISK FOR ONTD 06/10/2023 12:55:27 <1:5000 Final CALC'D GESTATIONAL AGE 1106/10/2023 12:55:27 16.4 Final AFP, SERUM 06/10/2023 12:55:27 33.0 (ng/mL) Final AFP MOM 06/10/2023 12:55:27 0.98 Final Reference Range:
NTD <2 .50
IDD <1.90
TWINS <4.00
TWINS IDD <3.50
TRIPLETS <4.50
The AFP test result indicates that this patient is
screen negative for open NTD. It should be noted
that normal test results can never guarantee the
of a normal baby and that 2-3% of newborns
have some type of physical or mental defect, many
of which are undetectable through any known
diagnostic technique.
This is a screening test, not a diagnostic test.
This risk assessment report is based in part on
demographic data provided by the ordering
physician. Please notify the laboratory promptly
if any data are incorrect. For assistance with
recalculations, please call your local [facility] laboratory. For assistance with
interpretation of these results, please contact
your Local [facility] genetic counselor or
call [phone] ([phone]).
Interpretive Cutoffs
Screen Positive for Open NTD:
> or = 2.50 adjusted MOM
> or = 1.90 adjusted MOM for insulin- dependent diabetics
> or = 4.00 adjusted MOM for twins
> or = 3.50 adjusted MOM for twins insulin-dependent diabetics
> or = 4.50 adjusted MOM for triplets
For additional information, please refer to
[email or web address]
(This link is being provided for
informational/educational purposes only.) DATE OF 06/10/2023 12:55:27 1990 Final COLLECTION DATE 06/10/2023 12:55:27 06/10/2023 Final MATERNAL WEIGHT 06/10/2023 12:55:27 163 (lbs ) Final EST'D DATE OF DELIVERY 06/10/2023 12:55:27 11/22/2023 Final TAMICA DETERMINED BY 06/10/2023 12:55:27 LMP Final MOTHER'S ETHNIC ORIGIN 06/10/2023 12:55:27 WHITE Final NUMBER OF FETUSES 06/10/2023 12:55:27 1 Final INSULIN DEPEND DIABETIC 06/10/2023 12:55:27 N Final REPEAT SPECIMEN 06/10/2023 12:55:27 N Final HX OF NEURAL TUBE DEFECTS 06/10/2023 12:55:27 N Final PREV DOWN SYND 06/10/2023 12:55:27 N Final DONOR EGG 06/10/2023 12:55:27 N Final DONOR AGE: EGG RETRIEVAL 06/10/2023 12:55:27 NOT GIVEN Final Test performed by [facility]
[address] [facility],
[place] [address]

Applications Manager: Alona Vega MD,PHD,JONI
Test Reported by Florencia Adrian,
[facility],
[address] [place], [place]
Atul Schwartz M.D., Ph.D., Director of Laboratories
, [facility] [id number] Performing Location
--- OUTSIDE RECORDS SUMMARY | 2023-11-03 17:07 | External Medical Summary | Summary of Care ---
Author Name Unknown Organization [facility] Address [address] [place] [address] Phone [phone] Care Team Providers Care Licensed Journeyman Electrician Name Role Phone Unavailable Primary Care Provider Unavailabl e Reason for Visit * Reason Onset Date Comments Referral 06/03/2023 Genetic Counseli aleksey Referral Encounter Details Date Type Department Care Team (Late st Contact Info) Description 06/03/2023 Telephone Senior Sharepoint Architect Obstetrics Maternal Medicine, [place] [address], [place] [phone] Arelis Rodriguez CHRA Referral (Genetic Counseling Referral) Allergies Active Allergy Reactions Criticality Noted Date [...] encounter Miscellaneous Notes * Telephone Encounter - Arelis Rodriguez CHRA - 06/03/2023 2:03 PM EST Spoke to the patient about their genetic counseling referral. Scheduled the patient for a genetic counseling appointment on 06/04/2023 at 10:00AM. MyG sent with appointment details. Link also sent tothe patient's phone and email at the patient's request. Confirmed the patient's email address. Respectfully, Arelis Rodriguez Genetic Counseling Kettle Operator Maternal Medicine/Transition Clinic For further questions call the Genetic Counselor at + . * Telephone Encounter - Arelis Rodriguez CHRA - 06/03/2023 2:01 PM EST GENETICS REFERRAL Referring provider: Leslee Mena Reason for referral: High Risk NIPT Please schedule for either in person or telemedicine visit with genetic counselor. Visit can be in person "genetic counseling MFM" or "new video visit home." Visit type is based on patient preferenceand genetic counselor in person availability. Respectfully, Arelis Rodriguez Genetic Counseling Kettle Operator Maternal Medicine/Transition Clinic For further questions call the Genetic Counselor at + . documented in this encounter Plan of Treatment Upcoming Encounters Date Type Department Care Team (Late st Contact Info) Description 06/04/2023 10:00 AM EST Telemedicine Senior Sharepoint Architect Obstetrics Maternal Medicine, [place] [address] [place] [address] Janet Koch, MS [address], [place] [id number] 06/10/2023 11:45 AM EST Office Visit Gynecology/Obstetrics [facility] [address] [place] [address] Sujatha Gonzalez [facility] [address] [place] [address] Health Maintenance Due Date Last Done Comments [...]
--- OUTSIDE RECORDS SUMMARY | 2023-11-03 17:07 | External Medical Summary | Summary of Care ---
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, single or unspecified fetus; Supervision of high risk in second trimester; Rh negative status during in second trimester Allergies Active Allergy Reactions Criticality Noted Date Comments Sulfamethoxazole-Trimethoprim Hives 2022 documented as of this encounter (statuses as of 08/06/2023) Medications Medication Sig Dispensed Refills Start Date [...] as of this encounter (statuses as of 08/06/2023) Active Problems Problem Noted Date Diagnosed Date [...] Comme nts Yes 11/22/2023 Based on last il nstrual period of 02/15/2023 documented as of this encounter (statuses as of 08/06/2023) Social History Tobacco Use Types Packs/Day Years [...] Benton is at 16w4d who presents to [facility] for an ultrasound and follow-up of [...] however patient does live a distance from [facility] and may prefer to see Radiology closer [...] Care Team (Late st Contact Info) Description 08/08/2023 10:45 AM EST Office Visit Gynecology/Obstetrics [facility] [address] [place] [address] Diamond Cerna CRNP [address] [place] [address] Scheduled Orders Name Type Priority Associated Diagnoses Orde r Schedule MFM US [facility] FOLLOW UP EACH FETUS Medical Imaging Routine [...] LAB BLOOD ORDER [facility] [address] [phone] documented in this encounter Visit Diagnoses Diagnosis [...]
--- OUTSIDE RECORDS SUMMARY | 2023-11-03 17:07 | External Medical Summary | Summary of Care ---
Author Name Unknown Organization [facility] Address [address] [place] [address] Phone [phone] Care Team Providers Care Houseperson Name Role Phone Unavailable Primary Care Provider Unavailabl e Reason for Visit * Reason Comments Return Visit Encounter Details Date Type Department Care Team (Late st Contact Info) Description 08/08/2023 10:45 AM EST Office Visit Gynecology/Obstetric s [facility] [address] [place] [address] Diamond Cerna CRNP [address] [place] [address] Supervision of other normal , antepartum*; Rh negative status during in second trimester; Abnormal findings on screening Allergies Active Allergy Reactions Criticality Noted Date Comments Sulfamethoxazole-Trimethoprim Hives 2022 documented as of this encounter (statuses as of 08/08/2023) Medications Medication Sig Dispensed Refills Start Date End Date Status 19 29-1 MG Oral Tablet Chewable Take by mouth. 0 Activ e documented as of this encounter (statuses as of 08/08/2023) Active Problems Problem Noted Date Diagnosed Date [...] as of this encounter (statuses as of 08/08/2023) Social History Tobacco Use Types Packs/Day Years [...] Sign Reading Time Taken Comments Blood Pressure 114/62 08/08/2023 10:48 AM EST Pulse - - Temperature - - Respiratory Rate - - Oxygen Saturation - - Inhaled Oxygen Concentration - - Weight 79.4 kg (175 lb) 08/08/2023 10:48 AM EST Height 175.3 cm (5' 9") 08/08/2023 10:48 AM EST Body Mass Index 25.84 08/08/2023 10:48 AM EST documented in this encounter Progress Notes * Diamond Cerna CRNP - 08/08/2023 11:04 AM EST 24w6d No concerns, feeling well. Baby is active. No contractions or bleeding. Discussed FKC. Discussed the additional maternal genetic testing ordered by RON, she hasn't contacted insurance yet, but still would like to do it. [place], Mara next visit. SHARON Victoria * Zaira Hussein LPN - 08/08/2023 10:48 AM EST 24w6d Denies any concerns documented in this encounter Plan of Treatment Upcoming Encounters Date Type Department Care Team (Late st Contact Info) Description 09/04/2023 9:00 AM EST Laboratory Laboratory, [facility] [address] [place] [place] [phone] Chiquita Flowers [address] [place] [place] [address] 09/04/2023 9:30 AM EST Office Visit Gynecology/Obstetrics [facility] [place] [address] [place] [place] [address] Diamond Cerna CRNP [address] [place] [address] Scheduled Orders Name Type Priority Associated Diagnoses Orde r Schedule 50-G GESTATIONAL GLUCOSE, 1 HOUR Lab Routine Supervision of other normal , antepartum Expected: 08/22/2023 (Approximate), Expires: 08/08/2024 CBC WITH WBC DIFFERENTIAL AND ANEMIA REFLEX WORKUP Lab Routine Supervision of other normal , antepartum Expected: 08/22/2023 (Approximate), Expires: 08/08/2024 SYPHILIS ANTIBODY SCREEN WITH REFLEX TO RPR Lab Routine Supervision of other normal , antepartum Expected: 08/22/2023 (Approximate), Expires: 08/08/2024 TYPE AND SCREEN Lab Routine Supervision of other normal , antepartum Rh negative status during in second trimester Expected: 09/08/2023 (Approximate), Expires: 09/08/2024 Health Maintenance Due Date Last Done Comments [...]
--- OUTSIDE RECORDS SUMMARY | 2023-11-03 17:07 | External Medical Summary | Summary of Care ---
Author Name Unknown Organization [facility] Address [address] [place] [address] Phone [phone] Care Team Providers Care Plate Keeper Name Role Phone Unavailable Primary Care Provider Unavailabl e Reason for Visit * Reason Comments Ultrasound Encounter Details Date Type Department Care Team (Late st Contact Info) Description 07/11/2023 10:15 AM EST Office Visit Rn New Grad Obstetrics Maternal Medicine, [place] [address] [place], [place] [phone] Nathan Morrissey, DO [address], [place] [phone] Abnormal findings on screening*; 20 weeks gestation of Allergies Active Allergy Reactions Criticality Noted Date Comments Sulfamethoxazole-Trimethoprim Hives 2022 documented as of this encounter (statuses as of 07/11/2023) Medications Medication Sig Dispensed Refills Start Date End Date Status 19 29-1 MG Oral Tablet Chewable Take by mouth. 0 Activ e documented as of this encounter (statuses as of 07/11/2023) Active Problems Problem Noted Date Diagnosed Date [...] as of this encounter (statuses as of 07/11/2023) Social History Tobacco Use Types Packs/Day Years [...] as of this encounter Progress Notes * Nathan Morrissey, - 07/11/2023 1:06 PM EST MATERNAL MEDICINE VISIT Sheron Benton is at 20w6d who presents to [facility] for an ultrasound and follow-up of her high risk . PHYSICAL EXAM: General: pleasant, alert and oriented, no acute distress She is being seen today by Maternal- Medicine for the following reasons: Problem List Items Addressed This Visit Abnormal findings on screening - Primary She presents for a anatomy survey. She [...] identify all anomalies, but it is reassuring thatno anomalies were seen today. We reviewed today's ultrasound findings. (For full report, please refer to ultrasound report provided separately). Ms. Benton's questions were answered to her satisfaction. RECOMMENDATIONS: No follow-up with Maternal Medicine is necessary unless further questions or indications arise. Thank you for allowing us to participate in the care of this patient. Please call with any questions. Nathan Morrissey DO 07/11/2023 1:06 PM documented in this encounter Miscellaneous Notes * Assessment & Plan Note - Nathan Morrissey DO - 07/11/2023 10:40 AM EST Associated Problem(s): Abnormal findings on screening She presents for a anatomy survey. She [...] identify all anomalies, but it is reassuring thatno anomalies were seen today. documented in this encounter Plan of Treatment Upcoming Encounters Date Type Department Care Team (Late st Contact Info) Description 07/11/2023 4:15 PM EST Office Visit Gynecology/Obstetrics [facility] [address] [place] [address] Rafaela Schuster PA-C [address] [place] [address] Scheduled Orders Name Type Priority Associated Diagnoses Orde r Schedule MFM [facility] FOLLOW UP EACH FETUS Medical Imaging Routine Abnormal findings on screening 9 Occurrences starting 07/11/2023 until 01/10/2024 Health Maintenance Due Date Last Done Comments [...] Diagnoses Diagnosis Abnormal findings on screening- Primary 20 weeks gestation of state, incidental documented in this encounter
--- OUTSIDE RECORDS SUMMARY | 2023-11-03 17:07 | External Medical Summary ---
Author Name Unknown Address Unknown Organization : Laboratory Report Ordering Provider Test Date Status ANNE SHARP 05/15/2023 11:55:53 Final Observation Date Value Abnormality Reference (Units ) Status NUMBER OF FETUSES? 05/15/2023 11:55:53 1 Final ADVANCED MATERNAL AGE? 05/15/2023 11:55:53 NO Final ABNORMAL SANYD? 05/15/2023 11:55:53 NO Final ABNORMAL US? 05/15/2023 11:55:53 NOT GIVEN Final PERSONAL/FAM HISTORY? 05/15/2023 11:55:53 NOT GIVEN Final INTERPRETATION 05/15/2023 11:55:53 SEE BELOW Final This specimen showed the exp ected representation
of chromosome 13, 18, and 21 material. However,
see the 'LaboratoryComments' section of this
report for discussion regarding sex chromosome
findings. Microdeletion testing was not performed
per clinician request. TRISOMY 21 (T21) 05/15/2023 11:55:53 Negative Final TRISOMY 18 (T18) 05/15/2023 11:55:53 Negative Final TRISOMY 13 (T13) 05/15/2023 11:55:53 Negative Final Y CHROMOSOME 05/15/2023 11:55:53 Detected Final Y CHR. INTERPRETATION 05/15/2023 11:55:53 SEE BELOW Final Consistent with a male fetus . SEX CHROMOSOME 05/15/2023 11:55:53 Indeterminate Abnormal Final SEX CHROMOSOME INTERP 05/15/2023 11:55:53 SEE BELOW Final Indeterminate MICRODELETION 05/15/2023 11:55:53 Opted Out Final MICRODELETION INTERP 05/15/2023 11:55:53 SEE BELOW Final Results were not analyzed or reported for
microdeletions. GESTATIONAL AGE (IN WEEKS) 05/15/2023 11:55:53 12 Final GESTATIONAL AGE (IN DAYS) 05/15/2023 11:55:53 5 Final FRACTION 05/15/2023 11:55:53 5.80% Final LABORATORY COMMENTS 05/15/2023 11:55:53 SEE BELOW Final The X chromosome data for th is sample is
indeterminate with regards to the presence of a
sex chromosome abnormality due to an
increase in X chromosome material. Follow- up
genetic counseling with discussion of follow-up
screening and/or diagnostic testing is
recommended. Irreversible management
decisions should not be based solely on these
results. See 'Limitations' below.
A portion of the testing was performed at [facility].
Laboratory results and submitted clinical
information reviewed by Manuel Rojas, PhD,
[facility], [facility]. LIMITATIONS 05/15/2023 11:55:53 SEE BELOW Final QNatal(R) Advanced is a cell -free DNA test that
screens for increased risk of certain
chromosomal abnormalities that may cause
defects, including Trisomy 21 (Down syndrome),
Trisomy 18, Trisomy 13, and certain sex chromosome
abnormalities (i.e., 45,X, 47,XXY, 47,XXX, and
47,XYY), as well as sex. In addition, if
selected as an option, QNatal(R) Advanced can
screen for certain microdeletions (i.e., 22q, 5p,
1p36, 15q, 11q, 8q, and 4p) that may cause
defects. This test does not assess the risk of
abnormalities such as neural tube defects or
ventral wall defects and should not be considered
in isolation from other clinical findings and
laboratory test results.
QNatal(R) Advanced has been validated in [place]
pregnancies for the trisomies and sex chromosome
abnormalities listed above, as well as for
microdeletions, and for the determination of
sex. Sex chromosome aneuploidy analysis is only
performed in [place] pregnancies. The test has
also been validated in twin pregnancies for the
trisomies listed above and for microdeletions, but
not for the sex chromosome abnormalities due to
limited data. The test has not been validated in
higher order pregnancies (more than two) because
limited data is available.
Microdeletion screening is limited to the
specified microdeletion regions (see
'Methodology'). The Y chromosome is analyzed for
the determination of sex. The sensitivity
and specificity of sex determination
analysis may be less than that of the Trisomy 21,
18, and 13 analysis and this determination can be
confounded by vanishing twin syndrome in
pregnancies that were originally multiple
gestation pregnancies. It should be noted that
QNatal(R) Advanced is a quantitative analysis of
maternal and placental cfDNA. As a result, the
accuracy of the screening test results may be
affected by the presence of chromosome
abnormalities or microdeletions that are maternal
or confined placental in origin. False positive
findings involving the examined chromosomes and
microdeletion regions may be due to maternal,
placental, or mosaicism, by vanishing twin
syndrome, or other unexplained causes. SPECIFICATIONS 05/15/2023 11:55:53 SEE BELOW Final Sensitivity Specificity
T21 >99.9% >99.9%
T18 >99.9% >99.9%
T13 >99.9% >99.9%
Accuracy
Y >99.9%
Performance of the QNatal Advanced
laboratory-developed test (LDT) has been
determined based on internal analytical
assessment. METHODOLOGY 05/15/2023 11:55:53 SEE BELOW Final Circulating cell-free (cf) D NA was isolated from
plasma followed by detection on a massively
parallel sequencing platform. Bioinformatic
analysis was performed to determine the
representation of chromosomes 21, 18, 13, X and Y
in circulating cell-free DNA. The representation
of sequences from the critical regions involved in
1p36 microdeletion syndrome (1p36),
Bernal-Hirschhorn syndrome (4p), Cri-du-chat
syndrome (5p), Cristiana-Giedion syndrome (8p),
Giovana syndrome (11q), Prader Willi
syndrome/Angelman syndrome (15q), and DiGeorge
syndrome (22q) is evaluated for the detection of
microdeletions if requested. This test was
developed, and its performance characteristics
have been determined by [facility]. It has not been
cleared or approved by the U.S. Food and Drug
Administration. Performance characteristics refer
to the analytical performance of the test. This
test is performed pursuant to a license agreement
with [employer].
This test was developed and its analytical
performance characteristics have been determined
by [facility]. It has not been cleared or
approved by FDA. This assay has been validated
pursuant to the CLIA regulations and is used for
clinical purposes.
Test performed by [facility]
[address],
[place] [address]

Wildlife Rehabilitator: Alona Vega MD,PHD,JONI
Test Reported by [facility],
[facility],
[address] [place], [place]
Atul Schwartz M.D., Ph.D., Director of Laboratories
, CLIA [id number] Performing Location
--- OUTSIDE RECORDS SUMMARY | 2023-11-03 17:07 | External Medical Summary | Summary of Care ---
Author Name Unknown Organization [facility] Address [address] [facility] [address] [place] [place] [address] Phone [phone] Care Team Providers Care Welder Plasma Arc Name Role Phone Unavailable Primary Care Provider Unavailabl e Reason for Visit * Reason Comments Return Visit Encounter Details Date Type Department Care Team Description 05/15/2023 Office Visit Gynecology/Obstetrics [facility] [address] [place] [address] BackLeslee mora CRNP [address] [place] [place] [address] Supervision of other normal , antepartum*; Rh negative status during in first trimester Allergies Active Allergy Reactions Severity Noted Date Comments Sulfamethoxazole-Trimethoprim Hives 2022 documented as of this encounter (statuses as of 05/15/2023) Medications Medication Sig Dispensed Refills Start Date End Date Status 19 29-1 MG Oral Tablet Chewable Take by mouth. 0 Activ e documented as of this encounter (statuses as of 05/15/2023) Active Problems Problem Noted Date Supervision of other normal , a ntepartum 04/17/2023 Rh negative status during 03/30 Overview: Received Rhogam 03/14/23 for bleeding in early Estimated Date of Delivery Comme nts Yes 11/22/2023 Based on last me nstrual period of 02/15/2023 documented as of this encounter (statuses as of 05/15/2023) Social History Tobacco Use Types Packs/Day Years Used Date Smoking Tobacco: Never Passive Smoke Exposure: Never Smokeless Tobacco: Never Alcohol Use Standard Drinks/Week Comments Not Currently 0 (1 standard drink = 0.6 oz pur e alcohol) social Food Insecurity Answer Date Recorded Within the past 12 months, y ou worried that your food would run out before you got money to buy more. Never true 10/17/2022 Within the past 12 months, t he food you bought just didn't last and you didn't have money to get more. Never true 10/17/2022 Estimated Date of Delivery Comme nts Yes 11/22/2023 Based on last me nstrual period of 02/15/2023 Sex Assigned at Date Recorded Female 10/16/2022 8:58 PM E DT Job Start Date Occupation Industry Not on file Not on file Not on file documented as of this encounter Last Filed Vital Signs Vital Sign Reading Time Taken Comments Blood Pressure 128/84 05/15/2023 11:43 AM EDT Pulse - - Temperature - - Respiratory Rate - - Oxygen Saturation - - Inhaled Oxygen Concentration - - Weight 74.9 kg (165 lb 3.2 oz) 05/15/2023 11:43 AM EDT Height 175.3 cm (5' 9") 05/15/2023 11:43 AM EDT Body Mass Index 24.4 05/15/2023 11:43 AM EDT documented in this encounter Progress Notes * SHARON Han - 05/15/2023 11:41 AM EDT 12w5d Doing well, minimal nausea. No cramping/bleeding. Wishes to do Qnatal today, ordered. Discussed turn around time for testing. Declines flu shot. + heart beat on doppler. 4 week return SHARON Sandy documented in this encounter Nursing Notes * Audrey Ham RN - 05/15/2023 11:45 AM EDT Patient here for BIRD visit 12w5d No concerns documented in this encounter Plan of Treatment Upcoming Encounters Date Type Specialty Care Team Description 06/10/2023 Office Visit Gynecology Obstetrics Sujatha Gonzalez, JAMAL [address] [facility] [place] [facility] Pending Results Name Type Priority Associated Diagnoses Date /Time QNATAL ADVANCED ([facility]) Lab Routine Supervision of other normal , antepartum 05/15/2023 11:55 AM EDT Scheduled Orders Name Type Priority Associated Diagnoses Orde r Schedule QNATAL ADVANCED ([facility]) Lab Routine Supervision of other normal , antepartum Expected: 05/15/2023, Expires: 05/15/2024 Health Maintenance Due Date Last Done Comments [...] antepartum- Primary Rh negative status during in first trimester documented in this encounter
--- OUTSIDE RECORDS SUMMARY | 2023-11-03 17:07 | External Medical Summary | Summary of Care ---
Author Name Unknown Organization [facility] Address [address] [facility] [place] [address] Phone [phone] Care Team Providers Care Group Home Supervisor Name Role Phone Unavailable Primary Care Provider Unavailabl e Reason for Visit * Reason Comments Acute Pt being seen for c/ o a twitching that comes and goes below rib cage for 3 weeks and was told by OB not related to . Has no pain with it, some constipation, and has not gone away. Encounter Details Date Type Department Care Team (Late st Contact Info) Description 06/21/2023 10:00 AM EST Office Visit Family Practice [facility] [address] [place] [address] Chaya Rhodes, [address] [place] [address] Muscle twitch* Allergies Active Allergy Reactions Criticality Noted Date Comments Sulfamethoxazole-Trimethoprim Hives 2022 documented as of this encounter (statuses as of 06/21/2023) Medications Medication Sig Dispensed Refills Start Date End Date Status 19 29-1 MG Oral Tablet Chewable Take by mouth. 0 Activ e documented as of this encounter (statuses as of 06/21/2023) Active Problems Problem Noted Date Diagnosed Date [...] Comme nts Yes 11/22/2023 Based on last md nstrual period of 02/15/2023 documented as of this encounter (statuses as of 06/21/2023) Social History Tobacco Use Types Packs/Day Years Used Date Smoking Tobacco: Never Passive Smoke Exposure: Never Smokeless Tobacco: Never Tobacco Cessation:Counseling Given: Not Answered Alcohol Use Standard Drinks/Week Comments Not Currently [...] Sign Reading Time Taken Comments Blood Pressure 128/70 06/21/2023 9:50 AM EST Pulse 90 06/21/2023 9:50 AM EST Temperature 36.9 C (98.5 F) 06/21/2023 9:50 AM ES T Respiratory Rate 16 06/21/2023 9:50 AM EST Oxygen Saturation - - Inhaled Oxygen Concentration - - Weight 74.8 kg (165 lb) 06/21/2023 9:50 AM EST Height - - Body Mass Index 24.37 06/10/2023 11:31 AM EST documented in this encounter Progress Notes * Chaya Rhodes, - 06/21/2023 9:56 AM EST Subjective: Sheron Benton is a 32 year old female. Chief Complaint Patient presents with Acute Pt being seen for c/o a twitching that comes and goes below rib cage for 3 weeks and was told by OBnot related to . Has no pain with it, some constipation, and has not gone away. There are no exam notes on file for this visit. HPI: This is a 32 year old female with PMHx as below presents with acute illness as noted above Feels a twitch LUQ Notes recent constipation but no real triggers/associations When sx happen can be daily for a few days then stop for a few days When happing cannot actually feel a twitch - its inside Health Maintenance Due Topic Date Due Hepatitis B (1 of 3 - 3-dose series) Never done COVID-19 Vaccine (1) Never done DTaP,Tdap,and Td Vaccines (1 - Tdap) Never done Influenza Vaccine (FLU shot) (1) Never done Patient Active Problem List Diagnosis Code Supervision of other normal , antepartum Z34.80 Rh negative status during O26.899, Z67.91 Abnormal findings on screening O28.9 Current Outpatient Medications Medication Sig Dispense Refill 19 29-1 MG Oral Tablet Chewable Take by mouth. No current facility-administered medications for this visit. Past Medical History: Diagnosis Date Known health problems: none Past Surgical History: Procedure Laterality Date KNEE ARTHROSCOPY/SURGERY X5 Review of patient's allergies indicates: Allergen Reactions Bactrim [Sulfamethoxazole-Trimethoprim] Hives Family History Problem Relation Age of Onset No Known Problems Mother No Known Problems Father No Known Problems Brother Family Status Relation Status Mo Alive Fa Alive Bro Alive Social History Socioeconomic History Marital status: Spouse name: Not on file Number of children: Not on file Years of education: Not on file Highest education level: Not on file Occupational History Occupation: HR dept Comment: [employer] Tobacco Use Smoking status: Never Passive exposure: Never Smokeless tobacco: Never Substance and Sexual Activity Alcohol use: Not Currently Comment: social Drug use: Never Sexual activity: Yes Partners: Male Other Topics Concern Not on file Social History Narrative Not on file Social Determinants of Health Financial Resource Strain: Not on file Food Insecurity: No Food Insecurity (10/16/2022) Hunger Vital Sign Worried About Running Out of Food in the Last Year: Never true Ran Out of Food in the Last Year: Never true Transportation Needs: Not on file Physical Activity: Not on file Stress: Not on file Social Connections: Not on file Intimate Partner Violence: Not on file Housing Stability: Not on file Review of Systems: As per HPI all other ROS negative. Wt Readings from Last 3 Encounters: 06/21/23 74.8 kg (165 lb) 06/10/23 74.5 kg (164 lb 3.2 oz) 05/15/23 74.9 kg (165 lb 3.2 oz) Results for orders placed or performed in visit on 06/11/23 HIGH-RESOLUTION RAPID MICROARRAY (CGH AND SNP) Result Value Ref Range External Lab Report RESULT SCAN OBJECTIVE: Physical Exam: BP 128/70 | Pulse 90 | Temp 36.9 C (98.5 F) (Tympanic) | Resp 16 | Wt 74.8 kg (165 lb) | LMP 02/15/2023 | BMI 24.37 kg/m | BSA 1.91 m General: alert, healthy, and no distress Abdomen: abdomen soft, non-tender, normal bowel sounds, and no masses or organomegaly Muscle twitch (Primary) Monitor for now Colonic massage Bowel regimen To contact ob/pcp if sx persist/change/worsen Follow Up: Return if symptoms worsen or fail to improve. Chaya Rhodes DO documented in this encounter Plan of Treatment Upcoming Encounters Date Type Department Care Team (Late st Contact Info) Description 07/12/2023 8:30 AM EST Office Visit Pigment Supplier Obstetrics Maternal [facility], [place] [address] [place] [address] Nathan Morrissey DO [address] [place] [address] 07/12/2023 8:30 AM EST Imaging Radiology [facility] [place] [address] [place] [address] 07/15/2023 11:30 AM EST Office Visit Gynecology/Obstetrics [facility] [address] [place] [address] Rafaela Schuster PA-C [address] [place] [address] Health Maintenance Due Date Last Done Comments [...] as of this encounter Visit Diagnoses Diagnosis Muscle twitch- Primary Abnormal involuntary movements documented in this encounter"
--- OUTSIDE RECORDS SUMMARY | 2023-11-03 17:07 | External Medical Summary | Summary of Care ---
Author Name Unknown Organization [facility] Address [address] [facility] [place] [address] Phone [phone] Care Team Providers Care Assistant Site Manager Name Role Phone Unavailable Primary Care Provider Unavailabl e Reason for Visit * Reason Comments Return Visit Encounter Details Date Type Department Care Team (Late st Contact Info) Description 07/11/2023 4:15 PM EST Office Visit Gynecology/Obstetric s [facility] [address] [place] [address] Rafaela Schuster PA-C [address] [place] [address] Supervision of other normal , antepartum*; Rh [...] Sign Reading Time Taken Comments Blood Pressure 112/66 07/11/2023 4:06 PM EST Pulse - - Temperature - - Respiratory Rate - - Oxygen Saturation - - Inhaled Oxygen Concentration - - Weight 78 kg (172 lb) 07/11/2023 4:06 PM EST Height 175.3 cm (5' 9") 07/11/2023 4:06 PM EST Body Mass Index 25.4 07/11/2023 4:06 PM EST documented in this encounter Progress Notes * Rafaela Schuster PA-C - 07/11/2023 4:24 PM EST 20w6d Doing well. Denies concerns. Plans trip to [place] next week. Had anatomy ultrasound with MFM earlier today, follow up as clinically indicated. Note from Dr. Morrissey reviewed as follows: She presents for a anatomy survey. She [...] is reassuring thatno anomalies were seen today. RTC in 4 weeks Rafaela Schuster PA-C documented in this encounter Nursing Notes * Aleah Culver LPN - 07/11/2023 4:08 PM EST 20w6d Had anatomy scan earlier today with MFM. Denies concerns. Will be traveling to [place] next week. documented in this encounter Plan of Treatment Upcoming Encounters Date Type Department Care Team (Late st Contact Info) Description 08/08/2023 10:45 AM EST Office Visit Gynecology/Obstetrics [facility] [address] [place] [address] Diamond Cerna CRNP [address] [place] [address] Health Maintenance Due Date Last Done Comments [...]
--- OUTSIDE RECORDS SUMMARY | 2023-11-03 17:07 | External Medical Summary | Summary of Care ---
Author Name Unknown Organization [facility] Address [address] [facility] [place] [address] Phone [phone] Care Team Providers Care Salt Lifter Name Role Phone Unavailable Primary Care Provider Unavailabl e Reason for Visit * Reason Onset Date Comments Encounter Created in Error 06/03/2023 Encounter Details Date Type Department Care Team (Late st Contact Info) Description 06/03/2023 Telephone Gynecology/Obstetrics [facility] [address] [place] [address] Leslee Mena CRNP [address] [place] [address] Encounter Created in Error (/) Allergies Active Allergy Reactions Criticality Noted Date [...] encounter Miscellaneous Notes * Telephone Encounter - Leslee Mena CRNP - 06/03/2023 12:15 PM EST error documented in this encounter Plan of Treatment Upcoming Encounters Date Type Department Care Team (Late st Contact Info) Description 06/10/2023 11:45 AM EST Office Visit Gynecology/Obstetrics [facility] [address] [place] [address] Sujatha Gonzalez, [address] [place] [address] Health Maintenance Due Date Last Done [...]
--- OUTSIDE RECORDS SUMMARY | 2023-11-03 17:07 | External Medical Summary | Summary of Care ---
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, single or unspecified fetus; Supervision of high risk in second trimester; Rh negative status during in second trimester Allergies Active Allergy Reactions Criticality Noted Date Comments Sulfamethoxazole-Trimethoprim Hives 2022 documented as of this encounter (statuses as of 06/11/2023) Medications Medication Sig Dispensed Refills Start Date [...] as of this encounter (statuses as of 06/11/2023) Active Problems Problem Noted Date Diagnosed Date Abnormal findings on screening 023 Overview: Indeterminate sex chromosome aneuploidy; 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 Last Assessment & Plan: Indeterminate sex chromosomes [...] as of this encounter (statuses as of 06/11/2023) Social History Tobacco Use Types Packs/Day Years [...] as of this encounter Progress Notes * Jessee Imelda Kassy, DO - 06/11/2023 10:01 AM EST MATERNAL MEDICINE VISIT Sheron Benton is at 16w4d who presents to [facility] for an ultrasound and follow-up of her [...] (Rhophylac) inj 300 mcg Other Relevant Orders [facility] US MATERNAL 1ST FETUS [facility] US PREG FOLLOW UP EACH FETUS Other Visit Diagnoses 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 (For full report, please refer to ultrasound report provided separately). Ms. Benton's questions were answered to her satisfaction. RECOMMENDATIONS: Recommend follow up ultrasound with MFM in 4 weeks for anatomy scan, however patient does live a distance from [facility] and may prefer to see [...] Upcoming Encounters Date Type Department Care Team (Zuleyka st Contact Info) Description 07/09/2023 11:45 AM EST Office Visit Gynecology/Obstetrics [facility] [address] [place] [address] BackerLeslee CRNP [address] [place] [address] Pending Results Name Type Priority Associated Diagnoses Date /Time HIGH-RESOLUTION RAPID MICROARRAY (CGH AND SNP) Lab Routine Abnormal findings on screening 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
--- OUTSIDE RECORDS SUMMARY | 2023-11-03 17:07 | External Medical Summary | Summary of Care ---
Author Name Unknown Organization [facility] Address [address] [facility] [place] [address] Phone [phone] Care Team Providers Care Shell Fisherman Name Role Phone Unavailable Primary Care Provider Unavailabl e Reason for Visit * Reason Comments Outpatient Testing Encounter Details Date Type Department Care Team Description 05/15/2023 Laboratory Laboratory, [facility] [place] [address] [facility] [address] Supervision of other normal , antepartum Allergies Active Allergy Reactions Severity Noted Date [...] 06/10/2023 Office Visit Gynecology Obstetrics Sujatha Gonzalez, [address] [place] [address] Pending Results Name Type Priority Associated Diagnoses Date /Time QNATAL ADVANCED (QUEST) Lab Routine Supervision of other normal , antepartum 05/15/2023 11:55 AM EDT Health Maintenance Due Date Last [...] Diagnosis Supervision of other normal , antepartum documented in this encounter
--- OUTSIDE RECORDS SUMMARY | 2023-11-03 17:07 | External Medical Summary | Summary of Care ---
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, single or unspecified fetus; Supervision of high risk in second trimester; Rh negative status during in second trimester Allergies Active Allergy Reactions Criticality Noted Date Comments Sulfamethoxazole-Trimethoprim Hives 2022 documented as of this encounter (statuses as of 08/09/2023) Medications Medication Sig Dispensed Refills Start Date [...] as of this encounter (statuses as of 08/09/2023) Active Problems Problem Noted Date Diagnosed Date [...] Comme nts Yes 11/22/2023 Based on last [place] nstrual period of 02/15/2023 documented as of this encounter (statuses as of 08/09/2023) Social History Tobacco Use Types Packs/Day Years [...] Benton is at 16w4d who presents to [facility] for an ultrasound and follow-up of [...] however patient does [place] [facility] [place] may prefer to see Radiology closer [...] Description 09/04/2023 9:00 AM EST Laboratory Laboratory, [facility] [address] [facility] [place] [phone] [facility] [address] [facility] [place] [address] 09/04/2023 9:30 AM EST Office Visit Gynecology/Obstetrics [facility] [place] [address] Diamond Cerna CRNP [address] [facility] [place] [address] Scheduled Orders Name Type Priority Associated Diagnoses [...] LAB BLOOD ORDER [facility] [address] [address] documented in this encounter Visit Diagnoses [...]
--- OUTSIDE RECORDS SUMMARY | 2023-11-03 17:07 | External Medical Summary | Summary of Care ---
Author Name Unknown Organization [facility] Address [address] [place] [address] Phone [phone] Care Team Providers Care Drag Car Racer Name Role Phone Unavailable Primary Care Provider Unavailabl e Reason for Visit * Reason Onset Date Comments Test Results 06/17/2023 MSAFP Results Encounter Details Date Type Department Care Team (Late st Contact Info) Description 06/17/2023 Telephone Well Testing Operator Obstetrics Maternal Medicine, [place] [address] [place], [place] [id number] Arelis Rodriguez CHRA Test Results (MSAFP Results) Allergies Active Allergy Reactions Criticality Noted Date Comments Sulfamethoxazole-Trimethoprim Hives 2022 documented as of this encounter (statuses as of 06/17/2023) Medications Medication Sig Dispensed Refills Start Date End Date Status 19 29-1 MG Oral Tablet Chewable Take by mouth. 0 Activ e documented as of this encounter (statuses as of 06/17/2023) Active Problems Problem Noted Date Diagnosed Date [...] as of this encounter (statuses as of 06/17/2023) Social History Tobacco Use Types Packs/Day Years [...] Telephone Encounter - Arelis Rodriguez CHRA - 06/17/2023 10:36 AM EST Pt aware of screen Negative MSAFP results. NTD risk reduced to 1 in 5000. Pt pleased with results. The patient had no further questions. Respectfully, Arelis Rodriguez Genetic Counseling Treatment Counselor Maternal Medicine/Transition Clinic For further questions call the Genetic Counselor at + . documented in this encounter Plan of Treatment Upcoming Encounters Date Type Department Care Team (Late st Contact Info) Description 07/12/2023 8:30 AM EST Office Visit Well Testing Operator Obstetrics [facility], [place] [address] [place] [address] Nathan Morrissey [address] [place] [address] 07/12/2023 8:30 AM EST Imaging Radiology [facility] [address] [place] [address] 07/15/2023 11:30 AM EST Office Visit Gynecology/Obstetrics [facility] [address] [place] [address] Rafaela Schuster PA-C [address] [place] [address] Health Maintenance Due Date Last Done Comments [...]
[2023-11-03] MEDS: LACTATED RINGER'S 1,000 ML IV PRN (17:39)
[2023-11-03 18:01] LABS: Mean Corpuscular Hemoglobin 34.6 pg (25.0-34.0); Mean Corpuscular Hgb Conc 37.1 g/dL (32.0-36.0); Mean Corpuscular Volume 93.1 fL (80.0-100.0); Mean Platelet Volume 10.4 fL (9.4-12.4); Platelet Count 253 K/uL (130-400); RDW Coefficient of Variation 11.4 % (11.5-14.5); RDW Standard Deviation 38.6 fL (36.4-46.3); Red Blood Count 3.76 M/uL (4.20-5.40)
[2023-11-03] MEDS: OXYTOCIN 30 UNITS/NSS 30 UNITS/500 ML BAG IV PRN (18:24)
[2023-11-03] MEDS: miSOPROStoL 200 MCG TAB ONE (18:31)
[2023-11-03] MEDS: LIDOCAINE 1% LOCAL 20 ML VIAL INFIL PRN (18:31)
[2023-11-03] MEDS: fentaNYL citrate PF 100 MCG/2 ML VIAL ONE (18:33)
[2023-11-03] MEDS: ePHEDrine sulfate 50 MG/ML AMP ONE (18:33)
[2023-11-03] MEDS: SODIUM CHLORIDE 0.9% PF INJ 10 ML VIAL ONE (18:34)
[2023-11-03] MEDS: fentANYL 2 MCG/ML BUPIVacaine 0.125%-NSS 100ML BAG ONE (18:34)
[2023-11-03] MEDS: BUPIVACAINE 0.25% PF 30 ML VIAL ONE (18:34)
[2023-11-03] MEDS: LIDOCAINE 2%/EPINEPHRINE 1:200,000 20 ML PF ONE (18:34)
[2023-11-03] MEDS ORDERED: ACETAMINOPHEN 325 MG TAB PO PRN (18:43)
[2023-11-03] MEDS ORDERED: HYDROCORTISONE ACETATE 25 MG SUPP PR PRN (18:43)
[2023-11-03] MEDS ORDERED: BENZOCAINE 20% SPRY 85 APPLN/85 GM CAN EXT PRN (18:43)
[2023-11-03] MEDS ORDERED: OXYTOCIN 30 UNITS/NSS 30 UNITS/500 ML BAG IV PRN (18:43)
[2023-11-03] MEDS ORDERED: bisacodyL 10 MG SUPP PR PRN (18:43)
--- NOTE | 2023-11-03 18:45 | Delivery Summary ---
Vaginal Delivery Summary Date of Service November 03, 2023 Vaginal Delivery Summary DELIVERY NOTE Patient delivered a live male in left occiput anterior presentation there was no nuchal cord which was easily reduced. Infant was delivered and placed on mother's abdomen. Delayed cord clamping was performed. Cord blood is obtained Meconium is absent Placenta is spontaneously delivered. Placenta appears grossly normal and has 3 vessel cord Inspection of the perineum showed a second-degree midline laceration. Laceration is repaired in layers with 2-0 Vicryl in layers Rectal exam post repair showed good sphincter tone no sutures palpated in the rectum. Estimated blood loss is 450 cc per Infants weight and scores are in the pediatric record Mother and baby are stable in in the recovery
--- NOTE | 2023-11-03 18:47 | Obstetrical Progress Note ---
Date of Service November 03, 2023 Assessment & Plan (1) : Plan: 33-year-old G1, P0 at 37 weeks presents to labor and delivery with contractions. On exam patient was 6 cm dilated she was admitted. Past medical history past surgical history allergies medications and causes reviewed. Admission labs are ordered patient wishes to have epidural. Plan admit anticipate vaginal delivery. Admission and Anticipated Discharge Date Admission Date: November 03, 2023 Results & Data Vital Signs (Past 12 Hours) Vital Signs Temp Pulse Resp BP Pulse Ox 11/03/23 18:37 82 153/81 H 11/03/23 18:19 112 H 99 11/03/23 18:17 94 H 92 11/03/23 18:14 80 99 11/03/23 18:09 81 100 11/03/23 18:04 83 100 11/03/23 17:59 84 100 11/03/23 17:54 72 100 11/03/23 17:14 92 H 140/98 11/03/23 17:12 86 144/99 H 11/03/23 17:09 36.6 C 86 20 140/98
[2023-11-03] MEDS: IBUPROFEN 600 MG TAB PO PRN (19:10)
[2023-11-03] MEDS: DOCUSATE SODIUM 100 MG CAP PO SCH (23:18)
--- NOTE | 2023-11-04 07:08 | Obstetrical Progress Note ---
Date of Service November 04, 2023 Assessment & Plan (1) Normal course: PPD #1 pt doing well anticipate disch tomorrow Subjective Ambulation: ambulating normally Voiding: no voiding problems Passing Gas:: Yes Diet Tolerance:: regular diet Lochia:: Small Feeding Type:: breast feeding Review of Systems All systems reviewed & are unremarkable except as noted in HPI & below Physical Exam Constitutional WD/WN, vitals as above well developed and well nourished Eyes PERRL, conjunctivae normal, anicteric sclerae Neck trachea midline, no thyromegaly Respiratory normal respiratory effort, lungs clear to auscultation Auscultation: no crackles, no rales and no wheezes Cardiovascular RRR, no murmur, no edema Gastrointestinal (Abdomen) normal bowel sounds, soft, nontender, no hepatosplenomegaly Uterus is below umbilicus Musculoskeletal no cyanosis or clubbing, extremities motor strength 5/5 Skin no rashes, warm and dry Neurologic patellar DTR's 2+ bilat, sensation intact Psychiatric A+Ox3, euthymic affect Genitourinary normal external appearance Results & Data Vital Signs (Past 12 Hours) Vital Signs Temp Pulse Pulse Resp BP BP Pulse Ox 11/04/23 04:44 36.7 C 81 18 119/83 97 11/03/23 23:03 37.1 C 87 18 138/87 96 11/03/23 21:12 36.6 C 11/03/23 20:45 36.6 C 16 11/03/23 20:45 86 129/88 11/03/23 20:30 99 H 124/82 11/03/23 20:15 16 11/03/23 20:00 87 127/80 11/03/23 19:45 16 11/03/23 19:45 109 H 125/84 11/03/23 19:30 16 11/03/23 19:30 76 140/87 11/03/23 19:18 76 130/81 11/03/23 19:15 16 11/03/23 19:15 36.4 C L 16 O2 Del Method 11/04/23 04:44 Room Air 11/03/23 23:03 Room Air 11/03/23 21:12 11/03/23 20:45 11/03/23 20:45 11/03/23 20:30 11/03/23 20:15 11/03/23 20:00 11/03/23 19:45 11/03/23 19:45 11/03/23 19:30 11/03/23 19:30 11/03/23 19:18 11/03/23 19:15 11/03/23 19:15
[2023-11-04 07:35] LABS: Hemoglobin 10.8 g/dl (12.0-16.0); Mean Corpuscular Hemoglobin 34.1 pg (25.0-34.0); Mean Corpuscular Volume 94.6 fL (80.0-100.0); Mean Platelet Volume 10.4 fL (9.4-12.4); Platelet Count 222 K/uL (130-400); RDW Coefficient of Variation 11.6 % (11.5-14.5); RDW Standard Deviation 39.2 fL (36.4-46.3); Red Blood Count 3.17 M/uL (4.20-5.40); White Blood Count 12.02 K/ul (4.8-10.8)
[2023-11-04] MEDS: PRENATAL VITAMIN 1 TAB PO SCH (08:28)
[2023-11-04] MEDS: DIPHTHER/TETAN/PERTUS Vaccine (Tdap, Adol/Adult) 0.5mL IM ONE (18:42)
[2023-11-04] MEDS: miSOPROStoL 200 MCG TAB PR ONE (19:56)
[2023-11-04] MEDS: bisacodyL 5 MG TABEC PO SCH (19:56)
[2023-11-05 06:39] LABS: Hematocrit (blood only) 32.2 % (37.0-47.0); Hemoglobin 11.2 g/dl (12.0-16.0)
--- NOTE | 2023-11-05 07:46 | Obstetrical Progress Note ---
Date of Service November 05, 2023 Assessment & Plan (1) Normal course: Continue routine care Discharge home today with instructions All questions answered in the room Subjective Ambulation: ambulating normally Voiding: no voiding problems Passing Gas:: Yes Diet Tolerance:: regular diet Lochia:: Small Feeding Type:: breast feeding Current Pain Level(1-10): 0 Patient doing well, bonding well with baby and standing at the bedside bassinet. No other complaints at this time Would like to go home today Physical Exam Constitutional WD/WN, vitals as above Respiratory normal respiratory effort, lungs clear to auscultation Cardiovascular RRR, no murmur, no edema Gastrointestinal (Abdomen) normal bowel sounds, soft, nontender, no hepatosplenomegaly fundus below U Results & Data Vital Signs (Past 12 Hours) Vital Signs Temp Pulse Resp BP Pulse Ox O2 Del Method 11/05/23 01:41 36.8 C 11/05/23 01:13 74 16 130/89 97 Room Air Laboratory Results Laboratory Results WBC 12.02 K/ul (4.8-10.8) H 11/04/23 07:19 RBC 3.17 M/uL (4.20-5.40) L 11/04/23 07:19 Hgb 11.2 g/dl (12.0-16.0) L 11/05/23 06:07 Hct 32.2 % (37.0-47.0) L 11/05/23 06:07 MCV 94.6 fL (80.0-100.0) 11/04/23 07:19 MCH 34.1 pg (25.0-34.0) H 11/04/23 07:19 MCHC 36.0 g/dL (32.0-36.0) 11/04/23 07:19 RDW Std Deviation 39.2 fL (36.4-46.3) 11/04/23 07:19 RDW Coeff of Jovanni 11.6 % (11.5-14.5) 11/04/23 07:19 Plt Count 222 K/uL (130-400) 11/04/23 07:19 MPV 10.4 fL (9.4-12.4) 11/04/23 07:19
== END 2023-11-05 11:30 | disposition home or self-care (01) | DRG 807 ==
LOC: OPB 16:58 → 4S1 17:01 → 4E2 21:14

== ENCOUNTER 2024-07-01 07:28 | Inpatient (IN) ==
[2024-07-01] MEDS ORDERED: CALCIUM CARBONATE 500 MG CHEWABLE TAB PO PRN (10:03)
[2024-07-01] MEDS ORDERED: LIDOCAINE 1% LOCAL 20 ML VIAL INFIL PRN (10:03)
[2024-07-01] MEDS: miSOPROStoL 200 MCG TAB PV ONE ×2 (10:37→14:48)
[2024-07-01 10:48] LABS: Hematocrit (blood only) 34.1 % (37.0-47.0); Hemoglobin 12.5 g/dl (12.0-16.0); Mean Corpuscular Hemoglobin 34.1 pg (25.0-34.0); Mean Corpuscular Hgb Conc 36.7 g/dL (32.0-36.0); Mean Corpuscular Volume 92.9 fL (80.0-100.0); Mean Platelet Volume 10.1 fL (9.4-12.4); Platelet Count 279 K/uL (130-400); RDW Coefficient of Variation 11.8 % (11.5-14.5); RDW Standard Deviation 40.4 fL (36.4-46.3); Red Blood Count 3.67 M/uL (4.20-5.40); White Blood Count 6.76 K/ul (4.8-10.8)
--- NOTE | 2024-07-01 11:17 | History & Physical Report ---
Date of Service July 01, 2024 Assessment & Plan (1) demise before 20 weeks with retention of fetus: Plan: Cytotec for induction Admission and Anticipated Discharge Date Admission Date: July 01, 2024 History of Present Illness Chief Complaint: demise Primary Care Provider: JEANCARLOS PCP 33 F P1021 at around 16 weeks noted spotting Saturday and was seen at the office at [facility] and noted to have a demise. Allergies Allergy/AdvReac Type Severity Reaction Status Date / Time sulfamethoxazole Allergy Hives Verified 11/03/23 17:45 [From Bactrim] trimethoprim [From Bactrim] Allergy Hives Verified 11/03/23 17:45 Home Medications Medication Instructions Recorded Confirmed Type vit with calcium-iron 1 tab PO 1XD 11/03/23 07/01/24 History fum-folic acid 60 mg-0.8 mg tablet Patient History Medical History No known health problems Surgical History H/O: knee surgery Social History Smoking Status: Never smoker Second Hand Exposure: No; Do You Dip or Chew Tobacco: No; Hx Alcohol Use: No Hx Substance Use: No Preferred Language: Nepali Communication Ability: Effective Mold Inspector Required: No Beliefs That Will Affect Care: None marital status: Current Living Situation: Family Current Living Situation Comment: Lives at home with , son, and one dog. 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 History 2 prior 1st trimester losses Review of Systems All systems reviewed & are unremarkable except as noted in HPI & below Physical Exam Constitutional: WD/WN, vitals as above Eyes: PERRL, conjunctivae normal, anicteric sclerae Respiratory: normal respiratory effort, lungs clear to auscultation Gastrointestinal (Abdomen): Inspection/Auscultation: abdomen normal to inspection Musculoskeletal: Extremities: extremities normal to inspection Skin: no rashes, warm and dry Neurologic: patellar DTR's 2+ bilat, sensation intact Genitourinary: Manual OB Exam: + cervical dilation fingertip and + cervical effacement Results & Data Vital Signs (Past 12 Hours) Vital Signs Temp Pulse Resp BP 07/01/24 10:39 75 111/69 07/01/24 08:16 86 109/78 07/01/24 08:09 36.9 C 86 16 109/78 Laboratory Results 07/01/24 08:35 WBC 6.76 RBC 3.67 L Hgb 12.5 Hct 34.1 L MCV 92.9 MCH 34.1 H MCHC 36.7 H RDW Std Deviation 40.4 RDW Coeff of Jovanni 11.8 Plt Count 279 MPV 10.1 Code Status & VTE Plan VTE Prophylaxis Plan VTE Prophylaxis will be ordered: No
[2024-07-01] MEDS ORDERED: Nursing to Pharmacy Communication SCH (14:15)
--- NOTE | 2024-07-01 15:07 | Labor Progress Brief Note ---
Date of Service July 01, 2024 Assessment & Plan Admission and Anticipated Discharge Date Admission Date: July 01, 2024 Physical Exam Genitourinary: Manual OB Exam: + cervical dilation (Cytotec 200 mcg given vaginally) Results & Data Vital Signs (Past 12 Hours) Vital Signs Temp Pulse Resp BP 07/01/24 14:19 37.6 C H 70 18 132/76 07/01/24 12:00 16 07/01/24 12:00 37.0 C 16 07/01/24 10:39 16 07/01/24 10:39 16 07/01/24 10:39 36.8 C 75 16 111/69 07/01/24 08:16 36.7 C 86 18 109/78 07/01/24 08:09 36.9 C 86 16 109/78
[2024-07-01] MEDS: ACETAMINOPHEN 325 MG TAB PO PRN (15:34)
[2024-07-01] MEDS ORDERED: BUTORPHANOL TARTRATE 2 MG/ML VIAL IV ONE (15:36)
[2024-07-01] MEDS: SODIUM CHLORIDE 0.9% 1,000 ML IV SCH (15:40)
[2024-07-01] MEDS ORDERED: SODIUM CHLORIDE 0.9% 500 ML IV ONE (15:55)
[2024-07-01] MEDS ORDERED: ONDANSETRON INJ 2 MG/ML 2 ML VIAL IV PRN (16:04)
[2024-07-01] MEDS: OXYTOCIN 30 UNITS/NSS 30 UNITS/500 ML BAG IV PRN (17:38)
[2024-07-01] MEDS: IBUPROFEN 600 MG TAB PO ONE (18:10)
[2024-07-01] MEDS ORDERED: miSOPROStoL 200 MCG TAB PV SCH (18:30)
[2024-07-01] MEDS ORDERED: ACETAMINOPHEN 325 MG TAB PO PRN (18:36)
[2024-07-01] MEDS ORDERED: bisacodyL 10 MG SUPP PR PRN (18:36)
[2024-07-01] MEDS ORDERED: OXYTOCIN 30 UNITS/NSS 30 UNITS/500 ML BAG IV PRN (18:36)
[2024-07-01] MEDS ORDERED: IBUPROFEN 600 MG TAB PO PRN (18:36)
[2024-07-01] MEDS ORDERED: BENZOCAINE 20% SPRY 85 APPLN/85 GM CAN EXT PRN (18:36)
[2024-07-01] MEDS ORDERED: HYDROCORTISONE ACETATE 25 MG SUPP PR PRN (18:36)
--- NOTE | 2024-07-01 18:40 | Delivery Summary ---
Vaginal Delivery Summary Date of Service July 01, 2024 Vaginal Delivery Summary Spontaneous vaginal breech delivery of stillborn male Apgars 0/0. Placenta delivered intact. No tears. Final sponge and instrument count are correct. Mom stable. Placenta to pathology. Baby for autopsy per request of family. QBL 50 ml.
[2024-07-01 18:41] VITALS: O2SAT 95
[2024-07-01] MEDS ORDERED: FOLIC ACID PO SCH (18:45)
[2024-07-01] MEDS ORDERED: FERROUS FUMARATE PO SCH (18:45)
[2024-07-01] MEDS ORDERED: MULTIVITAMIN PO SCH (18:45)
[2024-07-01 19:21] VITALS: RESP 18; TEMP 98.2
[2024-07-01] MEDS: DIPHTHER/TETAN/PERTUS Vaccine (Tdap, Adol/Adult) 0.5mL IM ONE (19:34)
[2024-07-01 19:55] VITALS: BP 115/57; PULSE 99
[2024-07-01] MEDS ORDERED: DOCUSATE SODIUM 100 MG CAP PO SCH (21:00)
[2024-07-02] MEDS ORDERED: PRENATAL VITAMIN 1 TAB PO SCH (08:00)
[2024-07-02] MEDS ORDERED: bisacodyL 5 MG TABEC PO SCH (20:00)
--- OUTSIDE RECORDS SUMMARY | 2024-07-03 12:18 | External Medical Summary | Summary of Care ---
Author Name Unknown Organization [facility] Address [address] [facility] [place] [address] Phone [phone] Care Team Providers Care Land Development Project Manager Name Role Phone Unavailable Primary Care Provider Unavailabl e Reason for Visit * Reason Onset Date Comments Appointment 06/26/2024 Encounter Details Date Type Department Care Team (Late st Contact Info) Description 06/26/2024 Telephone Gynecology/Obstetrics [facility] [address] [place] [address] Leslee Mena CRNP [address] [place] [address] Appointment Allergies Active Allergy Reactions Criticality Noted Date Comments Sulfamethoxazole-Trimethoprim Hives 2022 documented as of this encounter (statuses as of 06/26/2024) Medications 19 -1 MG Oral Tablet Chewable Take by mouth. Active documented as of this encounter (statuses as of 06/26/2024) Active Problems Problem Noted Date Diagnosed Date Short interval between pregn ancies complicating , antepartum 05/13/2024 Overview (05/13/2024): Delivered 10/2023 Rh negative status during 05/13/2024 Cyst of right ovary 05/13/2024 Overview (05/13/2024): First trimester: An isoechoic lesion is again seen in the right ovary measuring approximately 2.0 x 1.8 x 1.7 cm, not significantly changed in size since the prior exam. The lesion may be a complex corpus luteal cyst, however is again nonspecific. Continued surveillance is suggested. 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 Amnio: Microarray results on amniotic fluid resulted as normal male, no evidence of Klinefelter syndrome. We discussed that this does not rule out mosaicism less than 10%. Reviewed option for maternal genetic testing to rule out X chromosome alteration. Patient interested if covered by insurance. S/p [facility] anatomy ultrasound: WNL. Following consult note: "She presents for a anatomy survey. She has cffDNA screening that was indeterminate for the sex chromosomes. She had an amniocentesis on 06/11/23 that was normal" Assessment & Plan (07/11/2023 1:07 PM EST): She presents for a anatomy survey. She [...] reassuring that no anomalies were seen today. 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 Patient received [...] genetic counselor. Supervision of other normal , antepartum 04/17/2023 12/17/2023 Rh negative status during 04/17/2023 12/17/2023 Overview (04/17/2023): Received Rhogam 03/14/23 for bleeding in early documented as of this encounter (statuses as of 06/26/2024) Immunizations Name Administration Dates Next Due TDAP [...] money to get more. Never true 07/10/2023 Streeter Depression Scale Answer Date Recorded Streeter Depression Scale Total 1 05/13/2024 The thought of harming myself has occurred to me . Never 05/13/2024 Childcare Answer Date Recorded Do you feel overwhelmed with taking care of a child, family member or friend? No 07/10/2023 Does your family need help f inding childcare? (Household - for ages 0-17 years) Not on file 07/10/2023 Clothing Answer Date Recorded Have you been unable to get clothing when it was really needed? No 07/10/2023 Is your family able to get c lothes or diapers when needed? (Household - for ages 0-17 years) Not on file 07/10/2023 Personal Safety Answer Date Recorded Do you feel unsafe or have concerns for your saf ety? No 07/10/2023 Do you have concerns for you r family's safety? (Household - for ages 0-17 years) Not on file 07/10/2023 Utilities Answer Date Recorded Do you have trouble paying y our heating, water, or electric bill? No 07/10/2023 Is your family able to pay t he heat, water, or electric bill? (Household - for ages 0-17 years) Not on file 07/10/2023 Does your family have access to good internet? (Household - for ages 0-17 years) Not on file 07/10/2023 Employment Status Answer Date Recorded Are you unemployed or without regular income? No 07/10/2023 Does the household have a [facility] source of income? (Household - for ages 0-17 years) Not on file 07/10/2023 Social Connections Answer Date Recorded How often do you feel lonely or isolated from th ose around you? Never 07/10/2023 Financial Resource Strain Answer Date R ecorded Do you have any trouble payi ng for your medications, or do you think you might in the future? No 07/10/2023 Does your family have troubl e paying for medicine? (Household - for ages 0-17 years) Not on file 07/10/2023 Transportation Needs Answer Date Record ed READ ONLY Do you have troubl e getting a ride to medical visits or work? Never True 07/10/2023 Does your family have a hard time getting a ride to doctors visits? (Household - for ages 0-17 years) Not on file 07/10/2023 Has lack of transportation k ept you from medical appointments, meetings, work, or from getting things needed for daily living? Check all that apply. (Adult - for ages 18 years and over) Not on file 07/10/2023 Do you (or your family) have trouble finding or paying for a ride (transportation)? (Household - for ages 0-17 years) Not on file 07/10/2023 Housing Stability Answer Date Recorded Do you currently live in a s helter or have no steady place to sleep at night? No 07/10/2023 READ ONLY Do you think you a re at risk of becoming homeless? No 07/10/2023 Does your family worry about paying for your home or becoming homeless? (Household - for ages 0-17 years) Not on file 1 09/10/2022 Are you homeless or worried that you might be in the future? (Adult - for ages 18 years and over) Not on file Are you (or your family) girselda eless or worried that you might be in the future? (Household - for ages 0-17 years) Not on file Food Insecurity Answer Date Recorded Do you need food for this week? No 07/10/2023 Are you able to get enough f ood for your family? (Household - for ages 0-17 years) Not on file 07/10/2023 Does your family need food t his week? (Household - for ages 0-17 years) Not on file 07/10/2023 Do you always have enough fo od for your family? 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 Is asking to coordinate both on 07/13 if possible. documented in this encounter Plan of Treatment Upcoming Encounters Date Type Department Care Team (Late st Contact Info) Description 07/13/2024 8:15 AM EST Imaging Radiology [facility] [address] [facility] [place] [address] [place] [address] 07/14/2024 8:30 AM EST Office Visit Gynecology/Obstetrics [facility] [address] [place] [address] [place], SHARON Diaz [address] [place] [address] Health Maintenance Due Date Last Done Comments Hepatitis B Vaccine (1 of 3 - 19+ 3-dose series) 2010 Depression Screening 03/14/2024 03/14/2023 COVID-19 Vaccine (1 - 2023-2 5 season) 2024 Influenza Vaccine (FLU shot) (#1) 2024 Pap Smear 10/19/2025 10/19/2022 Cervical Cancer Screening 10/20/2027 HPV/Co-Test 10/20/2027 10/19/2022 DTap/Tdap Vaccines (2 - Td o r Tdap) 09/04/2033 09/04/2023 HPV (Gardasil) Vaccine Aged Out No lo nger eligible based on patient's age to complete this topic MENINGOCOCCAL (MENACTRA/MENVEO) Aged Out No longer eligible based on patient's age to complete this topic Pneumococcal Vaccine: Pediat rics (0 to 5 Years) and At-Risk Patients (6 to 64 Years) Aged Out No longer eligi ble based on patient's age to complete this topic documented as of this encounter Goals Goal Patient Goal Type Associated Problems Recent Progress Patient-Stated? Author Reminders Care Plan OB Reminders No Mychart, Provider documented as of this encounter Medical Devices Not on filedocumented as of this encounter Additional Health Concerns Active Problems Noted Date Diagnosed Date OB Reminders 05/13/2024 documented as of this encounter
--- OUTSIDE RECORDS SUMMARY | 2024-07-03 12:18 | External Medical Summary ---
Author Name Unknown Address Unknown Organization : Laboratory Report Ordering Provider Test Date Status LEXUS WATTS 06/08/2024 09:10:57 Final Observation Date Value Abnormality Reference (Units ) Status INTERPRETATION 06/08/2024 09:10:57 SEE BELOW Final Screen negative for open NTD . RISK FOR ONTD 06/08/2024 09:10:57 <1:5000 Final CALC'D GESTATIONAL AGE 1106/08/2024 09:10:57 15.1 Final AFP, SERUM 06/08/2024 09:10:57 19.3 (ng/mL) Final AFP MOM 06/08/2024 09:10:57 0.71 Final Reference Range:
NTD < 2.50
IDD <1.90
TWINS <4.00
TWINS IDD <3.50
[...] assistance with
recalculations, please call your local [facility] laboratory. For assistance with
interpretation of these results, please contact
your Local [facility] genetic counselor or
call [phone] ([phone]).
Interpretive Cutoffs
Screen Positive for Open NTD:
> or = 2.50 adjusted MOM
> or = 1.90 adjusted MOM for insulin- dependent diabetics
> or = 4.00 adjusted MOM for twins
> or = 3.50 adjusted MOM for twins insulin-dependent diabetics
> or = 4.50 adjusted MOM for triplets
For additional information, please refer to
http://Frogdice.Aimetis/faq/[email or web address]
(This link is being provided for
informational/educational purposes only.) DATE OF 06/08/2024 09:10:57 1990 Final COLLECTION DATE 06/08/2024 09:10:57 06/08/2024 Final MATERNAL WEIGHT 06/08/2024 09:10:57 172 (lbs ) Final EST'D DATE OF DELIVERY 06/08/2024 09:10:57 11/29/2024 Final TAMICA DETERMINED BY 06/08/2024 09:10:57 LMP Final MOTHER'S ETHNIC ORIGIN 06/08/2024 09:10:57 WHITE Final NUMBER OF FETUSES 06/08/2024 09:10:57 1 Final INSULIN DEPEND DIABETIC 06/08/2024 09:10:57 NO Final REPEAT SPECIMEN 06/08/2024 09:10:57 NO Final HX OF NEURAL TUBE DEFECTS 06/08/2024 09:10:57 NO Final PREV DOWN SYND 06/08/2024 09:10:57 NO Final DONOR EGG 06/08/2024 09:10:57 NO Final DONOR AGE: EGG RETRIEVAL 06/08/2024 09:10:57 NOT GIVEN Final Test performed by [facility]
[address],
[place] [address]

Communication Center Operator: Alona Vega MD,PHD,JONI
Test Reported by [facility],
[facility],
[address] [place], [place]
Atul Schwartz M.D., Ph.D., Director of Laboratories
, [place] [id number] Performing Location
--- OUTSIDE RECORDS SUMMARY | 2024-07-03 12:18 | External Medical Summary | Summary of Care ---
Author Name Unknown Organization [facility] Address [address] [facility] [place] [address] Phone [phone] Care Team Providers Care State Editor Name Role Phone Unavailable Primary Care Provider Unavailabl e Reason for Visit * Reason Comments Sore Throat Pt has sinus drainag e for the past 3 days, woke with sore throat this morning. Pt is and states she is just trying to stay ahead of this if she can Encounter Details Date Type Department Care Team (Late st Contact Info) Description 06/22/2024 12:20 PM EST Office Visit Family Practice [facility] [address] [facility] [place] [address] Seth Marmolejo MD [address] [facility] [place] [address] Sore throat* Allergies Active Allergy Reactions Criticality Noted Date Comments Sulfamethoxazole-Trimethoprim Hives 2022 documented as of this encounter (statuses as of 06/22/2024) Medications 19 29-1 MG Oral Tablet Chewable Take by mouth. Active documented as of this encounter (statuses as of 06/22/2024) Active Problems Problem Noted Date Diagnosed Date [...] as of this encounter (statuses as of 06/22/2024) Resolved Problems Problem Noted Date Diagnosed Date [...] Patient interested if covered by insurance. S/p [facility] anatomy ultrasound: WNL. Following consult note: "She [...] as of this encounter (statuses as of 06/22/2024) Immunizations Name Administration Dates Next Due TDAP [...] money to get more. Never true 07/10/2023 [place] Depression Scale Answer Date Recorded [place] Depression Scale Total 1 05/13/2024 The thought [...] No 07/10/2023 Does the household have a rustlar source of income? (Household - for ages [...] on file Are you (or your family) griselda eless or worried that you might be [...] Sign Reading Time Taken Comments Blood Pressure 118/72 06/22/2024 12:30 PM EST Pulse 68 06/22/2024 12:30 PM EST Temperature 37.1 C (98.8 F) 06/22/2024 12:[address] Respiratory Rate 18 06/22/2024 12:30 PM EST Oxygen Saturation - - Inhaled Oxygen Concentration - - Weight 77.1 kg (170 lb) 06/22/2024 12:30 PM EST Height - - Body Mass Index 25.1 06/08/2024 8:43 AM EST documented in this encounter Progress Notes * Seth Marmolejo MD - 06/22/2024 1:37 PM EST SUBJECTIVE: Sheron Benton is a 33 year old female. Chief Complaint Patient presents with Sore Throat Pt has sinus drainage for the past 3 days, woke with sore throat this morning. Pt is and states she is just trying to stay ahead of this if she can HPI: Sore throat for less than 12 hours. Wants swabbed to ensure she doesn't have strep. No fevers/chills. Worried about being sick while and caring for her young baby. Patient Active Problem List Diagnosis Short interval between pregnancies complicating , antepartum Rh negative status during Cyst of right ovary Current Outpatient Medications Medication Sig Dispense Refill 19 29-1 MG Oral Tablet Chewable Take by mouth. No current facility-administered medications for this visit. Allergy: Review of patient's allergies indicates: Allergen Reactions Bactrim [Sulfamethoxazole-Trimethoprim] Hives OBJECTIVE: BP 118/72 | Pulse 68 | Temp 98.8 F (37.1 C) | Resp 18 | Wt 170 lb (77.1 kg) | LMP (LMP Unknown)| BMI 25.10 kg/m | BSA 1.94 m Gen: nad Throat: cryptic tonsils, + exudate vs tonsillith on left, MMM Skin: no rashes Lungs: ctab ASSESSMENT AND PLAN: (J02.9) Sore throat (primary encounter diagnosis) Plan: STREP A SCREEN, POINT OF CARE (ENTER/EDIT), GROUP A STREP PCR -rapid strep negative; culture sent -likely viral; supportive measures discussed Follow up as needed. No other complaints were offered at this time. Seth Marmolejo MD documented in this encounter Nursing Notes * Pat Bonner LPN - 06/22/2024 12:30 PM EST The patient has been properly identified by confirmation of name and date of . Chief Complaint Patient presents with Sore Throat Pt has sinus drainage for the past 3 days, woke with sore throat this morning. Pt is and states she is just trying to stay ahead of this if she can documented in this encounter Plan of Treatment Upcoming Encounters Date Type Department Care Team (Late st Contact Info) Description 07/13/2024 8:15 AM EST Imaging Radiology [facility] 2nd Floor, [place] [address] [facility] [place] [address] 07/13/2024 10:30 AM EST Imaging Radiology [facility] [place] [address] [place] [address] 07/14/2024 8:30 AM EST Office Visit Gynecology/Obstetrics [facility] [address] [facility] [place] [address] [address], SHARON Diaz [address] [place] [address] Scheduled Orders Name Type Priority Associated Diagnoses Orde r Schedule STREP A SCREEN, POINT OF CARE (ENTER/EDIT) Point of Care Testing Routine Sore throat Ordered: 06/22/2024 GROUP A STREP PCR Lab Routine Sore throat Ordered: 06/22/2024 Health Maintenance Due Date Last Done Comments Hepatitis B Vaccine (1 of 3 - 19+ 3-dose series) 2010 Depression Screening 03/14/2024 03/14/2023 COVID-19 Vaccine ( - 2023-2 5 season) 2024 Influenza Vaccine [...] Author Reminders Care Plan OB Reminders No Tim[place], Provider documented as of this encounter Medical Devices Not on filedocumented as of this encounter Visit Diagnoses Diagnosis Sore throat- Primary Acute pharyngitis documented in this encounter Additional Health Concerns Active Problems Noted Date Diagnosed Date OB Reminders 05/13/2024 documented as of this encounter
--- OUTSIDE RECORDS SUMMARY | 2024-07-03 12:18 | External Medical Summary | Summary of Care ---
Author Name Unknown Organization [facility] Address [address] [facility] [place] [address] Phone [phone] Care Team Providers Care Consumer Education Specialist Name Role Phone Unavailable Primary Care Provider Unavailabl e Reason for Visit * Reason Comments Return Visit Encounter Details Date Type Department Care Team (Late st Contact Info) Description 06/08/2024 8:45 AM EST Office Visit Gynecology/Obstetric s [facility] [address] [place] [address] Kris Lindquist MD [address] [place] [address] Normal in second trimester*; Short interval between pregnancies complicating , antepartum; Rh negative status during in second trimester; Cyst of right ovary Allergies Active Allergy Reactions Criticality Noted Date Comments Sulfamethoxazole-Trimethoprim Hives 2022 documented as of this encounter (statuses as of 06/08/2024) Medications 19 29-1 MG Oral Tablet Chewable Take by mouth. 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 Amnio: Microarray results on amniotic fluid resulted as normal male, no evidence of Klinefelter syndrome. We discussed that this does not rule out mosaicism less than 10%. Reviewed option for maternal genetic testing to rule out X chromosome alteration. Patient interested if covered by insurance. S/p [facility] anatomy ultrasound: WNL. Following consult note: [...] as of this encounter (statuses as of 06/08/2024) Immunizations Name Administration Dates Next Due TDAP [...] money to get more. Never true 07/10/2023 [place] Depression Scale Answer Date Recorded [place] Depression Scale Total 1 05/13/2024 The thought [...] No 07/10/2023 Does the household have a re lar source of income? (Household - for ages [...] Sign Reading Time Taken Comments Blood Pressure 112/70 06/08/2024 8:43 AM EST Pulse - - Temperature - - Respiratory Rate - - Oxygen Saturation - - Inhaled Oxygen Concentration - - Weight 78.5 kg (173 lb) 06/08/2024 8:43 AM EST Height 175.3 cm (5' 9") 06/08/2024 8:43 AM EST Body Mass Index 25.55 06/08/2024 8:43 AM EST documented in this encounter Progress Notes * Kris Lindquist MD - 06/08/2024 8:57 AM EST Pt doing well C/o left groin pain that worsens with stepping on her left foot No hematuria, frequency or urgency FH: 150's RTc as scheduled documented in this encounter Nursing Notes * Aleah Culver LPN - 06/08/2024 8:46 AM EST 15w1d Low back/groin/leg pain. documented in this encounter Plan of Treatment Upcoming Encounters Date Type Department Care Team (Late st Contact Info) Description 07/13/2024 8:15 AM EST Imaging Radiology [facility] 2nd [facility] [address] [facility] [place] [address] 07/14/2024 8:30 AM EST Office Visit Gynecology/Obstetrics [facility] [address] [facility] [place] [address] BackerLeslee CRNP [address] [facility] [place] [address] Pending Results Name Type Priority Associated Diagnoses Date /Time MATERNAL SERUM AFP Lab Routine Normal in second trimester 06/08/2024 9:10 AM EST Scheduled Orders Name Type Priority Associated Diagnoses Orde r Schedule US PREG SINGLE/1ST GEST, 14 WEEKS OR LATER Medical Imaging Routine Normal in second trimester Expected: 07/13/2024 (Approximate), Expires: 07/08/2025 Health Maintenance Due Date Last Done Comments [...] as of this encounter Visit Diagnoses Diagnosis Normal in second trimester- Primary Short interval between pregnancies complicating , antepartum Supervision of other high-risk Rh negative status during in second trimester Cyst of right ovary Other and unspecified ovarian cyst documented in this encounter Additional Health Concerns Active Problems Noted Date Diagnosed Date OB Reminders 05/13/2024 documented as of this encounter
--- OUTSIDE RECORDS SUMMARY | 2024-07-03 12:18 | External Medical Summary | Summary of Care ---
Author Name Unknown Organization [facility] Address [address] [facility] [place] [address] Phone [phone] Care Team Providers Care Electronic Specialist Name Role Phone Unavailable Primary Care [...] 12:20 PM EST Office Visit Family Practice [facility] [address] [facility] [place] [address] Seth Marmolejo MD [address] [facility] [place] [address] Sore throat* Allergies Active Allergy Reactions Criticality [...] Patient interested if covered by insurance. S/p [facility] anatomy ultrasound: WNL. Following consult note: [...] money to get more. Never true 07/10/2023 [place] Depression Scale Answer Date Recorded [place] Depression Scale Total 1 05/13/2024 The thought [...] No 07/10/2023 Does the household have a [facility] source [facility]? (Household - for ages [...] Description 07/13/2024 8:15 AM EST Imaging Radiology [facility] 2nd Floor, [place] [address] [facility] [place] [address] 07/13/2024 10:30 AM EST Imaging Radiology [facility], [place] [address] [facility] [place] [address] 07/14/2024 8:30 AM EST Office Visit Gynecology/Obstetrics [facility] [address] [facility] [place] [address] Backer, SHARON Diaz [facility] [place] [address] Pending Results Name Type Priority Associated Diagnoses Date /Time GROUP A STREP PCR Lab Routine Sore throat 06/22/2024 2:57 PM EST Scheduled Orders Name Type Priority Associated Diagnoses Orde r Schedule STREP A SCREEN, POINT OF CARE (ENTER/EDIT) Point of Care Testing Routine Sore throat Ordered: 06/22/2024 Health Maintenance [...]
--- OUTSIDE RECORDS SUMMARY | 2024-07-03 12:18 | External Medical Summary | Summary of Care ---
Author Name Unknown Organization [facility] Address [address] [facility] [place] [address] Phone [phone] Care Team Providers Care [facility] Owner Name Role Phone Unavailable Primary Care Provider Unavailabl e Encounter Details Date Type Department Care Team (Late st Contact Info) Description 06/29/2024 Telephone Gynecology/Obstetrics [facility] [address] [place] [address] Kris Lindquist MD [address] [facility] [place] [address] Allergies Active Allergy Reactions Criticality Noted Date Comments Sulfamethoxazole-Trimethoprim Hives 2022 documented as of this encounter (statuses as of 06/29/2024) Medications 19 29-1 MG Oral Tablet Chewable Take by mouth. Active documented as of this encounter (statuses as of 06/29/2024) Active Problems Problem Noted Date Diagnosed Date [...] as of this encounter (statuses as of 06/29/2024) Resolved Problems Problem Noted Date Diagnosed Date [...] Patient interested if covered by insurance. S/p [facility] anatomy ultrasound: WNL. Following consult note: [...] as of this encounter (statuses as of 06/29/2024) Immunizations Name Administration Dates Next Due TDAP [...] money to get more. Never true 07/10/2023 [place] Depression Scale Answer Date Recorded [place] Depression Scale Total 1 05/13/2024 The thought [...] No 07/10/2023 Does the household have a [facility] source of income? (Household - for ages [...] encounter Miscellaneous Notes * Telephone Encounter - Sally Dey LPN - 06/29/2024 9:32 AM EST US ordered per Dr. Lindquist * Telephone Encounter - Fred Pereyra RN - 06/29/2024 8:05 AM EST Patient 18w1d called c/o brown spotting Is there any pain associated with your bleeding? no Have you had a recent US? no Are you experiencing any vaginal itching, burning, ordor, or other dischage? no Have you had recent intercourse or vaginal exam? No Patient spoke with union steward provider yesterday. Advised to call in to be seen today and possible US.Patient negative blood type. Scheduled patient at 4 pm she is available all day if you want to see sooner or get US sooner Thanks Fred Pereyra RN documented in this encounter Plan of Treatment Upcoming Encounters Date Type Department Care Team (Late st Contact Info) Description 06/29/2024 12:00 PM EST Imaging Radiology [address] [place] [address] 06/29/2024 4:00 PM EST Office Visit Gynecology/Obstetrics [facility] [address] [place] [address] Kris Lindquist MD [address] [facility] [place] [address] 07/13/2024 8:15 AM EST Imaging Radiology [address] [place] [address] 07/14/2024 8:30 AM EST Office Visit Gynecology/Obstetrics [facility] [address] [place] [address] Leslee Mena CRNP [address] [facility] [place] [address] Health Maintenance Due Date Last Done Comments [...] Author Reminders Care Plan OB Reminders No [place], Provider documented as of this encounter Medical Devices Not on filedocumented as of this encounter Additional Health Concerns Active Problems Noted Date Diagnosed Date OB Reminders 05/13/2024 documented as of this encounter
--- OUTSIDE RECORDS SUMMARY | 2024-07-03 12:18 | External Medical Summary ---
Author Name Unknown Address Unknown Organization K01:[facility] [address] [address] [facility] [address] Laboratory Report Ordering Provider Test Date Status VANESSADANIEL 06/22/2024 14:57:31 Final Observation Date Value Abnormality Reference (Units) Status Streptococcus pyogenes DNA [Presence] in Throat by [facility] with probe detection 06/22/2024 14:57:31 Negative. No Group A Streptococcus detected by PCR (amplified probe). Negative Final This test was developed and its performance characteristics determined by [facility]. It has not been cleared or approved by the FDA. The laboratory is regulated under CLIA as qualified to perform high- complexity testing. This test is used for clinical purposes. It should not be regarded as investigational or for research. Performing Location [facility] [address]
--- OUTSIDE RECORDS SUMMARY | 2024-07-03 12:18 | External Medical Summary | Summary of Care ---
Author Name Unknown Organization [facility] Address [address] [place] [address] Phone [phone] Care Team Providers Care Loan Specialist Name Role Phone Unavailable Primary Care Provider Unavailabl e Reason for Visit * Reason Comments Return Visit Encounter Details Date Type Department Care Team (Late st Contact Info) Description 06/29/2024 4:00 PM EST Office Visit Gynecology/Obstetric s [facility] [address] [place] [address] Kris Lindquist MD [address] [place] [address] Short interval between pregnancies complicating , antepartum*; Cyst of right ovary; Rh negative status during in second trimester Allergies Active Allergy Reactions Criticality Noted Date Comments Sulfamethoxazole-Trimethoprim Hives 2022 documented as of this encounter (statuses as of 06/29/2024) Medications 19 29-1 MG Oral Tablet Chewable Take by mouth. Active Hospital, Clinic, or Other Facility Administered Medication Ordered Dose Route Frequency Start Date End Date Status Rho D Immune Globulin (Rhophylac) inj 300 mcg 300 mcg IM ONCE 06/29/2024 06/29/2024 E nded documented as of this encounter (statuses as [...] Patient interested if covered by insurance. S/p [facility] anatomy ultrasound: WNL. Following consult note: [...] money to get more. Never true 07/10/2023 [place] Depression Scale Answer Date Recorded [place] Depression Scale Total 1 05/13/2024 The thought [...] 07/10/2023 Does the household have a re gular source of income? (Household - for ages [...] Sign Reading Time Taken Comments Blood Pressure - - Pulse - - Temperature - - Respiratory Rate - - Oxygen Saturation - - Inhaled Oxygen Concentration - - Weight - - Height 175.3 cm (5' 9") 06/29/2024 12:35 PM EST Body Mass Index - - documented in this encounter Progress Notes * Kris Lindquist MD - 06/29/2024 12:41 PM EST Pt is 18 weeks by LMP Sen for spotting US done today shows demise at 14 weeks Discussed surgery vrs induction Spoke to Dr Albrecht Plan [place] pt for documented in this encounter Nursing Notes * Aleah Culver LPN - 06/29/2024 12:43 PM EST Patient here for RHOGAM injection. Patient doing well no complaints. Injection given IM as ordered.Patient tolerated well. Patient to follow up as directed. Patient instructed to call if any complications. Patient verbalized understanding of instructions given and her follow up appt for NA Injection site: Left Gluteus Medication Source: Dispensed stock medication documented in this encounter Plan of Treatment Upcoming Encounters Date Type Department Care Team (Late st Contact Info) Description 07/13/2024 8:15 AM EST Imaging Radiology [facility] 2nd [facility] [address] [place] [address] 07/14/2024 8:30 AM EST Office Visit Gynecology/Obstetrics [facility] [address] [place] [address] Leslee Mena CRNP [address] [place] [address] Health Maintenance Due Date Last Done Comments [...] as of this encounter Visit Diagnoses Diagnosis Short interval between pregnancies complicating , antepartum- Primary Supervision of other high-risk Cyst of right ovary Other and unspecified ovarian cyst Rh negative status during in second trimester documented in this encounter Administered Medications Inactive Administered Medications - up to 3 most recent administrations Medication Order MAR Action Action Date Dose Rate Site Rho D Immune Globulin (Rhophylac) inj 300 mcg 300 mcg, Intramuscular, ONCE, On 06/29/24 at 1315, For 1 dose, Do not administer until type and screen has been collected! 1 MCG = 5 INTERNATIONAL UNITS Given 06/29/2024 12:40 PM EST 300 mcg Dorsogluteal Left documented in this encounter Additional Health Concerns Active Problems Noted Date Diagnosed Date OB Reminders 05/13/2024 documented as of this encounter
--- OUTSIDE RECORDS SUMMARY | 2024-07-03 12:18 | External Medical Summary | Summary of Care ---
Author Name Unknown Organization [facility] Address [address] [facility] [place] [address] Phone [phone] Care Team Providers Care Instructional Technology Coordinator Name Role Phone Unavailable Primary Care Provider Unavailabl e Encounter Details Date Type Department Care Team (Late st Contact Info) Description 06/05/2024 Telephone Gynecology/Obstetrics [facility] [address] [place] [address] Genaro Albrecht MD [address] [facility] [place] [address] Allergies Active Allergy Reactions Criticality Noted Date Comments Sulfamethoxazole-Trimethoprim Hives 2022 documented as of this encounter (statuses as of 06/05/2024) Medications 19 29-1 MG Oral Tablet Chewable Take by mouth. Active documented as of this encounter (statuses as of 06/05/2024) Active Problems Problem Noted Date Diagnosed Date [...] as of this encounter (statuses as of 06/05/2024) Resolved Problems Problem Noted Date Diagnosed Date [...] Patient interested if covered by insurance. S/p [facility] anatomy ultrasound: WNL. Following consult note: "She [...] as of this encounter (statuses as of 06/05/2024) Immunizations Name Administration Dates Next Due TDAP [...] money to get more. Never true 07/10/2023 [place] Depression Scale Answer Date Recorded [place] Depression Scale Total 1 05/13/2024 The thought [...] Telephone Encounter - Audrey Ham RN - 06/05/2024 3:16 PM EST Reviewed with Dr. Lindquist, who agrees with nursing advice, recommended Tylenol for the discomfort, Call if not improving or if any changes/new symptoms. My g message sent as she sent in message previously today. * Telephone Encounter - Audrey Ham RN - 06/05/2024 12:56 PM EST Patient calling 14w5d with concerns of back pain that started a few days ago. Reports painis just uncomfortable , not severe. Rates current pain 5- 6/10. Primarily on L side and radiates to front L pelvis into groin. Has not tried tylenol for pain. Denies any vaginal bleeding or fluid leaking. No urinary concerns, is drinking a lot of water. Advised patient that could be common back/round ligament pain in the 2nd trimester. Advised tylenol, warm compress on back for short intervals, gentle stretching, hydration and given precautions on when to call back. Patient verbalized understanding. Patient has OV Saturday. Please advise further. documented in this encounter Plan of Treatment Upcoming Encounters Date Type Department Care Team (Late st Contact Info) Description 06/08/2024 8:45 AM EST Office Visit Gynecology/Obstetrics [facility] [address] [place] [address] Kris Lindquist MD [address] [place] [address] Health Maintenance Due Date Last Done Comments [...]
--- OUTSIDE RECORDS SUMMARY | 2024-07-03 12:18 | External Medical Summary | Summary of Care ---
Author Name Unknown Organization [facility] Address [address] [facility] [place] [address] Phone [phone] Care Team Providers Care Belt Cutter Name Role Phone Unavailable Primary Care Provider Unavailabl e Reason for Visit * Reason Comments Outpatient Testing Encounter Details Date Type Department Care Team (Late st Contact Info) Description 06/08/2024 9:[address] [facility] Laboratory Laboratory, [facility] [address] [place] [id number] [facility] [address] [place] [address] Arrived Allergies Active Allergy Reactions Criticality Noted [...] Patient interested if covered by insurance. S/p [facility] anatomy ultrasound: WNL. Following consult note: [...] money to get more. Never true 07/10/2023 [place] Depression Scale Answer Date Recorded [place] Depression Scale Total 1 05/13/2024 The thought [...] No 07/10/2023 Does the household have a [facility] source of income? (Household - for [...] Description 07/13/2024 8:15 AM EST Imaging Radiology [facility] 2nd [facility] [address] [place] [address] 07/14/2024 8:30 AM EST Office Visit Gynecology/Obstetrics [facility] [address] [place] [address] Leslee Mena CRNP [address] [place] [address] Health Maintenance Due Date Last Done Comments [...] Author Reminders Care Plan OB Reminders No [place] Provider documented as of this encounter Medical Devices Not on filedocumented as of this encounter Additional Health Concerns Active Problems Noted Date Diagnosed Date OB Reminders 05/13/2024 documented as of this encounter
--- OUTSIDE RECORDS SUMMARY | 2024-07-03 12:19 | External Medical Summary | Summary of Care ---
Author Name Unknown Organization [facility] Address [address] [facility] [place] [address] Phone [phone] Care Team Providers Care Associate Software Application Engineer Name Role Phone Unavailable Primary Care Provider Unavailabl e Reason for Visit * Reason Comments New Visit Encounter Details Date Type Department Care Team (Late st Contact Info) Description 05/13/2024 9:30 AM EDT Office Visit Gynecology/Obstetric s Piero Flowers [address] [place] [address] BackLselee mora CRNP [address] [place] [address] Normal in first trimester*; Rh negative status during in first trimester; Short interval between pregnancies complicating , antepartum; Cyst of right ovary Allergies Active Allergy Reactions Criticality Noted Date Comments Sulfamethoxazole-Trimethoprim Hives 2022 documented as of this encounter (statuses as of 05/13/2024) Medications Medication Sig Dispensed Refills Start Date End Date Status 19 29-1 MG Oral Tablet Chewable Take by mouth. 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 Amnio: Microarray results on amniotic fluid resulted as normal male, no evidence of Klinefelter syndrome. We discussed that this does not rule out mosaicism less than 10%. Reviewed option for maternal genetic testing to rule out X chromosome alteration. Patient interested if covered by insurance. S/p [facility] anatomy ultrasound: WNL. Following consult note: "She [...] seen today. Supervision of other normal , antepartum 04/17/2023 12/17/2023 Rh negative status during 04/17/2023 12/17/2023 Overview: Received Rhogam 03/14/23 for bleeding in early documented as of this encounter (statuses as of 05/13/2024) Immunizations Name Administration Dates Next Due TDAP [...] money to get more. Never true 07/10/2023 [place] Depression Scale Answer Date Recorded [place] Depression Scale Total 5 01/03/2024 The thought of harming myself has occurred to me . Never 01/03/2024 Childcare Answer Date Recorded Do you feel [...] Sign Reading Time Taken Comments Blood Pressure 110/70 05/13/2024 9:31 AM EDT Pulse - - Temperature - - Respiratory Rate - - Oxygen Saturation - - Inhaled Oxygen Concentration - - Weight 75.8 kg (167 lb) 05/13/2024 9:31 AM EDT Height - - Body Mass Index 24.66 05/04/2024 1:45 PM EDT documented in this encounter Progress Notes * Leslee Mena CRNP - 05/13/2024 10:08 AM EDT CC: NOB HPI: Sheron Benton is a 33 year old female here for initial OB exam. TAMICA 11/30/23 by U/S. She is taking vitamins. She plans to breastfeed . Reviewed PMH, social hx, family hx, surgical hx, ob hx with patient. Prior complications: none Current symptoms: nausea, managing with frequent snacks. No current bleeding/cramping. Reviewed current medications with patient. Last pap smear 09/2022 NILM, neg HPV [place] Depression Scale: [place] Depression Scale Total: 1 [place] suicide question and score: Score of 3 = Yes, quite often. Score of 2 = Sometimes. Score of 1 = Hardly ever The thought of harming myself has occurred to me.: 0 OB History Para Term AB Living 4 1 1 2 1 SAB IAB Ectopic Multiple Live Births 2 1 # Outcome Date GA Lbr Vern/2nd Weight Sex Type Anes PTL Lv 4 Current 3 Term 11/03/23 37w2d 3.062 kg (6 lb 12 oz) M Vag-Spont ANALI 2 07/2022 1 12/2021 9w0d Past Medical History: Diagnosis Date Known health problems: none Social History Socioeconomic History Marital status: Occupational History Occupation: HR dept Comment: [employer] Tobacco Use Smoking status: Never Passive exposure: Never Smokeless tobacco: Never Substance and Sexual Activity Alcohol use: Not Currently Comment: social Drug use: Never Sexual activity: Yes Partners: Male Social Determinants of Health Financial Resource Strain: Low Risk (07/10/2023) Financial Resource Strain Do you have any trouble paying for your medications, or do you think you might in the future? (Adult - for ages 18 years and over): No Food Insecurity: No Food Insecurity (07/10/2023) Food Insecurity Do you need food for this week? (Adult - for ages 18 years and over): No Transportation Needs: No Transportation Needs (07/10/2023) Transportation Needs Do you have trouble getting a ride to medical visits or work? (Adult - for ages 18 years and over):Never True Social Connections: Socially Integrated (07/10/2023) Social Connections How often do you feel lonely or isolated from those around you? (Adult - for ages 18 years and over): Never Housing Stability: Low Risk (07/10/2023) Housing Stability Do you currently live in a group home or have no steady place to sleep at night? (Adult - for ages 18 years and over): No Do you think you are at risk of becoming homeless? (Adult - for ages 18 years and over): No Past Surgical History: Procedure Laterality Date KNEE ARTHROSCOPY/SURGERY X5 Current Outpatient Medications Medication Sig Dispense Refill 19 29-1 MG Oral Tablet Chewable Take by mouth. No current facility-administered medications for this visit. Review of patient's allergies indicates: Allergen Reactions Bactrim [Sulfamethoxazole-Trimethoprim] Hives Family History Problem Relation Name Age of Onset No Known Problems Mother No Known Problems Father No Known Problems Brother Throat cancer Grandfather (Maternal) Breast Cancer Grandmother (Paternal) Denies family history of genetic conditions in patient's and FOB's families. ROS: General: no fevers, chills CV: no chest pain, SOB GI: no constipation, diarrhea, + nausea Breast: no masses, nipple discharge, tenderness : no vaginal bleeding, unusual vaginal discharge, dysuria Psychological: no anxiety, depression, SI/HI PHYSICAL EXAM: please see physical Pelvic exam deferred; completed 10/2023, pt has no concerns Food Preparation Supervisor Documentation Patient offered replacer and declined. ASSESSMENT/PLAN: Normal in first trimester (Primary) - CULTURE, URINE, QUANTITATIVE - TYPE AND SCREEN; Future; Expected date: 05/13/2024 - RUBELLA IGG ANTIBODY; Future; Expected date: 05/13/2024 - HEPATITIS B SURFACE ANTIGEN; Future; Expected date: 05/13/2024 - HIV ANTIGEN & ANTIBODY SCREEN W/ CONFIRMATION; Future; Expected date: 05/13/2024 - CHLAMYDIA TRACHOMATIS AND NEISSERIA GONORRHOEAE, AMPLIFIED PROBE - CBC WITH WBC DIFFERENTIAL AND ANEMIA REFLEX WORKUP; Future; Expected date: 05/13/2024 - HEPATITIS C ANTIBODY SCREEN WITH PROGRESSION TO HEPATITIS C RNA QUANTITATIVE; Future; Expected date: 05/13/2024 - SYPHILIS ANTIBODY SCREEN WITH REFLEX TO RPR; Future; Expected date: 05/13/2024 - QNATAL ADVANCED ([facility]); Future; Expected date: 05/13/2024 Rh negative status during in first trimester Short interval between pregnancies complicating , antepartum Cyst of right ovary Stable on 2 first trimester scans; will follow up at anatomy scan at 20 weeks. Follow Up: Return in about 4 weeks (around 06/10/2024) for rpn. | For: rpn | Check-out note: Labs today - Discussed timing of routine OB care and OB call coverage. Provided with OB triage phone number; advised to use patient portal for non-emergent questions only. - Offered genetic screening and explained that screening does not provide a definitive diagnosis. Patient accepts. - Counseled on OTC measures to help alleviate nausea and advised to call if these are ineffective - Recommended daily vitamin. - Discussed labs as ordered and instructed patient to present to lab following appointment. - RTO in 4 weeks for MARSHALL PANG with concern SHARON Sandy documented in this encounter Miscellaneous Notes * Addendum Note - Mukund Bates LPN - 05/13/2024 10:59 AM EDTAddended by: MUKUND BATES on: 05/13/2024 10:59 AM Modules accepted: Orders documented in this encounter Plan of Treatment Upcoming Encounters Date Type Department Care Team (Late st Contact Info) Description 06/10/2024 9:45 AM EST Office Visit Gynecology/Obstetrics Piero Flowers [address] [place] [address] Diamond Cerna CRNP [address] [place] [address] Pending Results Name Type Priority Associated Diagnoses Date /Time CULTURE, URINE, QUANTITATIVE Lab Routine Normal in first trimester 05/13/2024 10:49 AM EDT TYPE AND SCREEN Lab Routine Normal in first trimester 05/13/2024 10:28 AM EDT RUBELLA IGG ANTIBODY Lab Routine Normal in first trimester 05/13/2024 10:28 AM EDT HEPATITIS B SURFACE ANTIGEN Lab Routine Normal in first trimester 05/13/2024 10:28 AM EDT HIV ANTIGEN & ANTIBODY SCREEN W/ CONFIRMATION Lab Routine Normal in first trimester 05/13/2024 10:28 AM EDT CBC WITH WBC DIFFERENTIAL AND ANEMIA REFLEX WORKUP Lab Routine Normal in first trimester 05/13/2024 10:28 AM EDT HEPATITIS C ANTIBODY SCREEN WITH PROGRESSION TO HEPATITIS C RNA QUANTITATIVE Lab Routine Normal in first trimester 05/13/2024 10:28 AM EDT SYPHILIS ANTIBODY SCREEN WITH REFLEX TO RPR Lab Routine Normal in first trimester 05/13/2024 10:28 AM EDT QNATAL ADVANCED ([facility]) Lab Routine Normal in first trimester 05/13/2024 10:28 AM EDT Scheduled Orders Name Type Priority Associated Diagnoses Orde r Schedule TYPE AND SCREEN Lab Routine Normal in first trimester Expected: 05/13/2024 (Approximate), Expires: 06/13/2025 RUBELLA IGG ANTIBODY Lab Routine Normal in first trimester Expected: 05/13/2024 (Approximate), Expires: 05/13/2025 HEPATITIS B SURFACE ANTIGEN Lab Routine Normal in first trimester Expected: 05/13/2024 (Approximate), Expires: 05/13/2025 HIV ANTIGEN & ANTIBODY SCREEN W/ CONFIRMATION Lab Routine Normal in first trimester Expected: 05/13/2024, Expires: 05/13/2025 CBC WITH WBC DIFFERENTIAL AND ANEMIA REFLEX WORKUP Lab Routine Normal in first trimester Expected: 05/13/2024, Expires: 05/13/2025 HEPATITIS C ANTIBODY SCREEN WITH PROGRESSION TO HEPATITIS C RNA QUANTITATIVE Lab Routine Normal in first trimester Expected: 05/13/2024, Expires: 05/13/2025 SYPHILIS ANTIBODY SCREEN WITH REFLEX TO RPR Lab Routine Normal in first trimester Expected: 05/13/2024, Expires: 05/13/2025 QNATAL ADVANCED ([facility]) Lab Routine Normal in first trimester Expected: 05/13/2024, Expires: 05/13/2025 CHLAMYDIA TRACHOMATIS AND NEISSERIA GONORRHOEAE, AMPLIFIED PROBE Lab Routine Normal in first trimester Expected: 05/13/2024, Expires: 05/13/2025 Health Maintenance Due Date Last Done Comments [...] this encounter Visit Diagnoses Diagnosis Normal in first trimester- Primary Rh negative status during in first trimester Short interval between pregnancies complicating , antepartum Supervision of other high-risk Cyst of right ovary Other and unspecified ovarian cyst documented in this encounter
--- OUTSIDE RECORDS SUMMARY | 2024-07-03 12:19 | External Medical Summary ---
Author Name Unknown Address Unknown Organization [id number]:LABORATORY [facility] [place] [address] [place] [id number] Laboratory Report Ordering Provider Test Date Status ANNE SHARP 05/13/2024 10:49:16 Final Observation Date Value Abnormality Reference (Units ) Status Bacteria identified in Specimen by Culture 05/13/2024 10:49:16 < 100 colonies/ml (no growth) Final Test: Culture, Urine, Quanti tative
Specimen Source: Urine, Clean Catch
Specimen Type: Urine
Specimen Date: 05/13/2024 1049
Result Date: 05/14/2024 1259
Result Status: Final result
Resulting Lab: LABORATORY [facility]
[address]
[place] [address]

CULTURE

< 100 colonies/ml (no growth)

null Performing Location LABORATORY [facility] [place] - [address] [facility] [address]
--- OUTSIDE RECORDS SUMMARY | 2024-07-03 12:19 | External Medical Summary | Summary of Care ---
Author Name Unknown Organization [facility] Address [address] [facility] [place] [address] Phone [phone] Care Team Providers Care Stage Rigger Name Role Phone Unavailable Primary Care Provider Unavailabl e Reason for Visit * Reason Comments Outpatient Testing Encounter Details Date Type Department Care Team (Late st Contact Info) Description 05/13/2024 10:40 AM EDT Laboratory [facility], [facility] [address] [facility] [id number] [facility] [address] [place] [address] Normal in first trimester Allergies Active Allergy Reactions Criticality Noted [...] Patient interested if covered by insurance. S/p [facility] anatomy ultrasound: WNL. Following consult [...] money to get more. Never true 07/10/2023 [place] Depression Scale Answer Date Recorded [place] Depression Scale Total 5 01/03/2024 The thought [...] Piero Flowers [address] [place] [address] Diamond Cerna CRNP [address] [place] [address] Pending Results Name Type Priority Associated Diagnoses Date /Time TYPE AND SCREEN Lab Routine Normal in [...] in first trimester 05/13/2024 10:28 AM EDT ANEMIA CBC Lab Routine Normal in first trimester 05/13/2024 10:28 AM EDT DIFFERENTIAL, AUTOMATED Lab Routine Normal in first trimester 05/13/2024 10:28 AM EDT ANEMIA REFLEX CHEMISTRY HOLD Lab Routine Normal in first trimester 05/13/2024 10:28 AM EDT HEPATITIS C ANTIBODY Lab Routine Normal in first trimester 05/13/2024 10:28 AM EDT HEPATITIS C RNA ADD ON Lab Routine Normal in first trimester 05/13/2024 10:28 AM EDT SYPHILIS ANTIBODY SCREEN Lab Routine Normal in first trimester 05/13/2024 10:28 AM EDT Health Maintenance Due Date Last [...] encounter Visit Diagnoses Diagnosis Normal in first trimester documented in this encounter Additional Health Concerns Active Problems Noted Date Diagnosed Date OB Reminders 05/13/2024 documented as of this encounter
--- OUTSIDE RECORDS SUMMARY | 2024-07-03 12:19 | External Medical Summary ---
Author Name Unknown Address Unknown Organization [id number]:[facility] [place] [address] [place] [address] Laboratory Report Ordering Provider Test Date Status ANNE SHARP 05/13/2024 11:01:24 Final Observation Date Value Abnormality Reference (Units ) Status Chlamydia trachomatis rRNA [Presence] in Specimen by REMEDIOS with probe detection 05/13/2024 11:01:24 Negative Negative Final No Chlamydia trachomatis det ected by slate cutter operator-mediated nucleic acid amplification. Neisseria gonorrhoeae rRNA [ Presence] in Specimen by REMEDIOS with probe detection 05/13/2024 11:01:24 Negative Negative Final No Neisseria gonorrhoeae det ected by slate cutter operator-mediated nucleic acid amplification. Performing Location [facility] [address] [place] [address]
--- OUTSIDE RECORDS SUMMARY | 2024-07-03 12:19 | External Medical Summary ---
Author Name Unknown Address Unknown Organization : Laboratory Report Ordering Provider Test Date Status ANNE SHARP 05/13/2024 10:28:44 Final Observation Date Value Abnormality Reference (Units ) Status NUMBER OF FETUSES? 05/13/2024 10:28:44 1 Final ADVANCED MATERNAL AGE? 05/13/2024 10:28:44 NO Final ABNORMAL SANDY? 05/13/2024 10:28:44 NO Final ABNORMAL US? 05/13/2024 10:28:44 NOT GIVEN Final PERSONAL/FAM HISTORY? 05/13/2024 10:28:44 NOT GIVEN Final INTERPRETATION 05/13/2024 10:28:44 SEE BELOW Final This specimen showed an expe cted representation of
chromosome 21, 18, and 13 material. Results were
not analyzed or reported for microdeletions. See
'Limitations' below. TRISOMY 21 (T21) 05/13/2024 10:28:44 Negative Final TRISOMY 18 (T18) 05/13/2024 10:28:44 Negative Final TRISOMY 13 (T13) 05/13/2024 10:28:44 Negative Final Y CHROMOSOME 05/13/2024 10:28:44 Detected Final Y CHR. INTERPRETATION 05/13/2024 10:28:44 SEE BELOW Final Consistent with a male fetus . SEX CHROMOSOME 05/13/2024 10:28:44 No aneuploidy Final SEX CHROMOSOME INTERP 05/13/2024 10:28:44 SEE BELOW Final No apparent abnormality was detected. See
'Limitations' below. MICRODELETION 05/13/2024 10:28:44 Opted Out Final MICRODELETION INTERP 05/13/2024 10:28:44 SEE BELOW Final Results were not analyzed or reported for
microdeletions. GESTATIONAL AGE (IN WEEKS) 05/13/2024 10:28:44 11 Final GESTATIONAL AGE (IN DAYS) 05/13/2024 10:28:44 3 Final FRACTION 05/13/2024 10:28:44 9.10% Final LABORATORY COMMENTS 05/13/2024 10:28:44 SEE BELOW Final Laboratory testing supervise d and results
monitored by Greg Solorio, Ph.D., [facility], [facility],
MB. LIMITATIONS 05/13/2024 10:28:44 SEE BELOW Final QNatal(R) Advanced is a cell -free DNA screening
test that screens for increased risk of [...] analysis is only
performed in [place] pregnancies. This screening
test has also been validated in twin pregnancies
for the trisomies listed above and for
microdeletions, but not for the sex chromosome
abnormalities due to limited data. This screening
test has not been validated in higher order
pregnancies (more than two) because limited data
is available. Sex chromosomal aneuploidy results
issued for pregnancies confirmed to be of multiple
gestations are not valid and should be
disregarded.
Microdeletion screening is limited to the
specified [...] cfDNA. As a result, the
accuracy of screening results may be affected by
the presence of chromosome abnormalities or
microdeletions that are maternal or confined
placental in origin. SPECIFICATIONS 05/13/2024 10:28:44 SEE BELOW Final Sensitivity Specificity
T21 >99.9% >99.9%
T18 >99.9% >99.9%
T13 >99.9% >99.9%
Accuracy
Y >99.9%
Performance of the QNatal Advanced
laboratory-developed test (LDT) has been
determined based on internal analytical
assessment. METHODOLOGY 05/13/2024 10:28:44 SEE BELOW Final Circulating cell-free (cf) D NA was isolated from
plasma followed by detection on a massively
parallel sequencing platform. Bioinformatic
analysis was performed to determine the
representation of chromosomes 21, 18, 13, X and Y
in circulating cell-free DNA. The representation
of sequences from the critical regions involved in
1p36 microdeletion syndrome (1p36),
Bernal-Hirschhorn syndrome (4p), Cri-du-chat
syndrome (5p), Cristiana-Giedion syndrome (8q),
Giovana syndrome (11q), Prader Willi
syndrome/Angelman syndrome (15q), and DiGeorge
syndrome (22q) is evaluated for the detection of
microdeletions if requested. Performance
characteristics refer to the analytical
performance of this screening test. This screening
test is performed pursuant to a license agreement
with [employer].
QNatal Advanced is a laboratory developed test
that has been developed and validated, pursuant to
the Clinical Laboratory Improvements Amendments of
1988 (CLIA), and as such it has not been reviewed
by FDA.
Test performed by [facility]
[id number],
[place] [address]

Film Processor: Alona Vega MD,PHD,JONI
Test Reported by [facility],
[facility],
[address] [place], [place]
Atul Schwartz M.D., Ph.D., Director of Laboratories
, CLIA [id number] Performing Location
--- OUTSIDE RECORDS SUMMARY | 2024-07-03 12:19 | External Medical Summary | Summary of Care ---
Author Name Unknown Organization [facility] Address [address] [facility] [place] [address] Phone [phone] Care Team Providers Care Cone Machine Operator Name Role Phone Unavailable Primary Care Provider Unavailabl e Reason for Visit * Reason Comments New Visit Encounter Details Date Type Department Care Team (Late st Contact Info) Description 05/13/2024 9:30 AM EDT Office Visit Gynecology/Obstetric s Piero Flowers [address] [place] [address] BackLeslee mora CRNP [address] [place] [address] Normal in first trimester*; Rh negative status [...] Patient interested if covered by insurance. S/p [facility] anatomy ultrasound: WNL. Following consult note: [...] money to get more. Never true 07/10/2023 [place] Depression Scale Answer Date Recorded [place] Depression Scale Total 5 01/03/2024 The thought [...] Last pap smear 09/2022 NILM, neg HPV [place] Depression Scale: [place] Depression Scale Total: 1 [place] suicide question and score: Score of 3 [...] Stability Do you currently live in a mcfp or have no steady place to sleep [...] deferred; completed 10/2023, pt has no concerns Statistical Geneticist Documentation Patient offered mental health coordinator and declined. ASSESSMENT/PLAN: Normal in first trimester [...] concern SHARON Sandy documented in this encounter Plan of Treatment Upcoming Encounters Date Type Department Care Team (Late st Contact Info) Description 05/13/2024 10:40 AM EDT Laboratory Laboratory, [address] [place] [address] Flowers Chiquita Valero [address] [place] [address] Arrived 06/10/2024 9:45 AM EST Office Visit Gynecology/Obstetrics Piero Flowers [address] [place] [address] Diamond Cerna CRNP [address] [place] [address] Scheduled Orders Name Type Priority Associated Diagnoses Orde r Schedule CULTURE, URINE, QUANTITATIVE Lab Routine Normal in first trimester Ordered: 05/13/2024 TYPE AND SCREEN Lab Routine Normal in [...] PROBE Lab Routine Normal in first trimester Ordered: 05/13/2024 CBC WITH WBC DIFFERENTIAL AND ANEMIA REFLEX [...]
--- OUTSIDE RECORDS SUMMARY | 2024-07-03 12:19 | External Medical Summary ---
Author Name Unknown Address Unknown Organization K01:LABORATORY [facility] [place] - [address] [facility] [address] Laboratory Report Ordering Provider Test Date Status ANNE SHARP 05/13/2024 10:28:44 Final Observation Date Value Abnormality Reference (Units ) Status Treponema pallidum Ab [Presence] in Serum by Immunoassay 05/13/2024 10:28:44 Nonreactive Nonreactive Final No serologic evidence of syp hilis. No additional testing clinicially indicated at this time. Consider repeat testing in 2-4 weeks if acute or primary syphilis is suspected. Performing Location LABORATORY [facility] [place] - [address] [place] [address]
--- OUTSIDE RECORDS SUMMARY | 2024-07-03 12:19 | External Medical Summary | Summary of Care ---
Author Name Unknown Organization [facility] Address [address] [facility] [place] [address] Phone [phone] Care Team Providers Care Color Depositing Machine Tender Name Role Phone Unavailable Primary Care Provider Unavailabl e Reason for Visit * Reason Comments New Visit Encounter Details Date Type Department Care Team (Late st Contact Info) Description 05/13/2024 9:30 AM EDT Office Visit Gynecology/Obstetric s Piero Flowers [address] [place] [address] BackLeslee mora CRNP [address] [place] [address] Normal in first trimester*; Rh negative status [...] Patient interested if covered by insurance. S/p [facility] anatomy ultrasound: WNL. Following consult note: [...] money to get more. Never true 07/10/2023 [place] Depression Scale Answer Date Recorded [place] Depression Scale Total 5 01/03/2024 The thought [...] Last pap smear 09/2022 NILM, neg HPV [place] Depression Scale: [place] Depression Scale Total: 1 [place] suicide question and score: Score of 3 [...] Stability Do you currently live in a snf or have no steady place to sleep [...] deferred; completed 10/2023, pt has no concerns Grant Specialist Documentation Patient offered international travel consultant and declined. ASSESSMENT/PLAN: Normal in first trimester [...] 06/10/2024 9:45 AM EST Office Visit Gynecology/Obstetrics [address] [place] [address] Diamond Cerna CRNP [address] [place] [address] Pending Results Name Type Priority Associated Diagnoses [...] in first trimester 05/13/2024 10:28 AM EDT CHLAMYDIA TRACHOMATIS AND NEISSERIA GONORRHOEAE, AMPLIFIED PROBE Lab Routine Normal in first trimester 05/13/2024 10:49 AM EDT CBC WITH WBC DIFFERENTIAL AND [...]
--- OUTSIDE RECORDS SUMMARY | 2024-07-03 12:19 | External Medical Summary | Summary of Care ---
Author Name Unknown Organization [facility] Address [address] [facility] [place] [address] Phone [phone] Care Team Providers Care Clinical Rehab Liaison Name Role Phone Unavailable Primary Care Provider Unavailabl e Encounter Details Date Type Department Care Team (Late st Contact Info) Description 04/23/2024 Telephone Gynecology/Obstetrics [facility] [address] [place] [address] Frank Mazariegos MD [address] [facility] [place] [address] Allergies Active Allergy Reactions Criticality Noted Date Comments Sulfamethoxazole-Trimethoprim Hives 2022 documented as of this encounter (statuses as of 04/23/2024) Medications Medication Sig Dispensed Refills Start Date End Date Status 19 29-1 MG Oral Tablet Chewable Take by mouth. Activ e documented as of this encounter (statuses as of 04/23/2024) Active Problems No known active problems documented as of this encounter (statuses as of 04/23/2024) Resolved Problems Problem Noted Date Diagnosed Date [...] as of this encounter (statuses as of 04/23/2024) Immunizations Name Administration Dates Next Due TDAP [...] money to get more. Never true 07/10/2023 [place] Depression Scale Answer Date Recorded [place] Depression Scale Total 5 01/03/2024 The thought [...] No 07/10/2023 Does the household have a [facility] source [facility] income? (Household - [...] ages 0-17 years) Not on file 07/10/2023 Sex and Gender Information Value Date Recorded Sex Assigned at Female 10/16/2022 8:58 PM EDT Gender Identity Female 10/16/2022 8:58 PM EDT Sexual Orientation Straight 10/16/2022 8: 58 PM EDT Job Start Date Occupation Industry Not on file Not on file Not on file documented as of this encounter Miscellaneous Notes * Telephone Encounter - Angle Fish LPN - 04/23/2024 1:23 PM EDT Spoke to pt and made aware. Pt verbalized understanding. * Telephone Encounter - Frank Mazariegos MD - 04/23/2024 1:07 PM EDT Beta units do not rise as fast when the numbers are large.The definitive test is weather you see heart rate on ultrasound. documented in this encounter Plan of Treatment Upcoming Encounters Date Type Department Care Team (Late st Contact Info) Description 04/24/2024 9:45 AM EDT Imaging Radiology [facility] [address] [place] [address] 05/04/2024 1:45 PM EDT Nurse Only Gynecology/Obstetrics [facility] [address] [place] [address] Gw, Nurse Funeral Assistant [facility] [address] [place] [address] 05/13/2024 9:30 AM EDT Office Visit Gynecology/Obstetrics [facility] [address] [place] [address] Backer, SHARON Diaz [address] [place] [address] Health Maintenance Due Date Last Done Comments [...]
--- OUTSIDE RECORDS SUMMARY | 2024-07-03 12:19 | External Medical Summary | Summary of Care ---
Author Name Unknown Organization [facility] Address [address] [facility] [place] [address] Phone [phone] Care Team Providers Care Casino Assistant Manager Name Role Phone Unavailable Primary Care Provider Unavailabl e Encounter Details Date Type Department Care Team (Late st Contact Info) Description 06/05/2024 Telephone Gynecology/Obstetrics [facility] [address] [place] [address] Genaro Albrecht MD [address] [place] [address] Allergies Active Allergy Reactions Criticality Noted Date [...] Patient interested if covered by insurance. S/p [facility] anatomy ultrasound: WNL. Following consult [...] money to get more. Never true 07/10/2023 [place] Depression Scale Answer Date Recorded [place] Depression Scale Total 1 05/13/2024 The thought [...] 06/08/2024 8:45 AM EST Office Visit Gynecology/Obstetrics [facility] [address] [place] [address] Kris Lindquist MD [address] [place] [address] Health Maintenance Due Date Last Done Comments [...]
--- OUTSIDE RECORDS SUMMARY | 2024-07-03 12:19 | External Medical Summary | Summary of Care ---
Author Name Unknown Organization [facility] Address [address] [facility] [place] [address] Phone [phone] Care Team Providers Care Public Welfare Worker Name Role Phone Unavailable Primary Care Provider Unavailabl e Encounter Details Date Type Department Care Team (Late st Contact Info) Description 06/05/2024 Telephone Gynecology/Obstetrics [facility] [address] [place] [address] Genaro Albrecht MD [address] [facility] [place] [address] Allergies Active Allergy Reactions Criticality Noted Date [...] Patient interested if covered by insurance. S/p [facility] anatomy ultrasound: WNL. Following consult note: [...] money to get more. Never true 07/10/2023 [place] Depression Scale Answer Date Recorded [place] Depression Scale Total 1 05/13/2024 The thought [...] 06/08/2024 8:45 AM EST Office Visit Gynecology/Obstetrics [facility] [address] [place] [address] Kris Lindquist MD [address] [place] [address] Health Maintenance Due Date Last Done Comments [...]
--- OUTSIDE RECORDS SUMMARY | 2024-07-03 12:19 | External Medical Summary | Summary of Care ---
Author Name Unknown Organization [facility] Address [address] [facility] [place] [address] Phone [phone] Care Team Providers Care Food Preparation Kitchen Aide Name Role Phone Unavailable Primary Care Provider Unavailabl e Reason for Visit * Reason Comments New Visit Encounter Details Date Type Department Care Team (Late st Contact Info) Description 05/13/2024 9:30 AM EDT Office Visit Gynecology/Obstetric s [facility] [address] [place] [address] BackLeslee mora CRNP [address] [place] [address] Normal in first trimester*; Rh negative status [...] Patient interested if covered by insurance. S/p [facility] anatomy ultrasound: WNL. Following consult [...] money to get more. Never true 07/10/2023 [place] Depression Scale Answer Date Recorded [place] Depression Scale Total 5 01/03/2024 The thought [...] Last pap smear 09/2022 NILM, neg HPV [place] Depression Scale: [place] Depression Scale Total: 1 [place] suicide question and score: Score of 3 [...] Stability Do you currently live in a jail or have no steady place to sleep [...] deferred; completed 10/2023, pt has no concerns Director Of Kids Documentation Patient offered vehicle care specialist and declined. ASSESSMENT/PLAN: Normal in first trimester [...] 06/10/2024 9:45 AM EST Office Visit Gynecology/Obstetrics [address] [place] [address] Diamond Cerna CRNP [address] [place] [address] Pending Results Name Type Priority Associated Diagnoses [...]
--- OUTSIDE RECORDS SUMMARY | 2024-07-03 12:19 | External Medical Summary ---
Author Name Unknown Address Unknown Organization K[facility] - [address] [place] [address] Laboratory Report Ordering Provider Test Date Status ANNE SHARP 05/13/2024 10:28:44 Final Observation Date Value Abnormality Reference (Units ) Status Hep B surface Ag 05/13/2024 10:28:44 Negative Neg ative Final Performing Location [facility] - [address] [place] [address]
--- OUTSIDE RECORDS SUMMARY | 2024-07-03 12:19 | External Medical Summary ---
Author Name Unknown Address Unknown Organization [id number]:[facility] [place] [address] [place] [address] Laboratory Report Ordering Provider Test Date Status ANNE SHARP 05/13/2024 10:28:44 Final Observation Date Value Abnormality Reference (Units ) Status Rubella virus IgG Ab [Presence] in Serum 05/13/2024 10:28:44 Positive Abnormal Negative Final A positive result is consist ent with having had rubella virus or vaccination. Performing Location [facility]ORY [facility] - [address] [place] [address]
--- OUTSIDE RECORDS SUMMARY | 2024-07-03 12:19 | External Medical Summary ---
Author Name Unknown Address Unknown Organization [id number]:[facility] [place] [facility] [address] [facility] [address] [facility] [place] [address] Laboratory Report Ordering Provider Test Date Status ANNE SHARP 05/13/2024 10:28:44 Final Observation Date Value Abnormality Reference (Units ) Status HIV 1+2 Ab+HIV1 p24 Ag [Presence] in Serum or Plasma by Immunoassay 05/13/2024 10:28:44 Negative Negative Final Negative HIV-1/2 antigen and antibody screening tset results usually indicate the absence of HIV-1 and HIV-2 infection. However, such negative results do not rule-out acute HIV infection. If acute HIV-1 infection is highly suspected, it is recommended that a specimen be submitted for detection of HIV-1 RNA. Performing Location [facility] [place] - [address] [facility] [place] [address]
--- OUTSIDE RECORDS SUMMARY | 2024-07-03 12:19 | External Medical Summary | Summary of Care ---
Author Name Unknown Organization [facility] Address [address] [facility] [place] [address] Phone [phone] Care Team Providers Care Equipment Services Associate Name Role Phone Unavailable Primary Care Provider Unavailabl e Reason for Visit * Reason Comments Initial Visit Encounter Details Date Type Department Care Team (Late st Contact Info) Description 05/04/2024 1:45 PM EDT Nurse Only Gynecology/Obstetrics [facility] [address] [place] [address] Gw, Nurse Calender Worker Helper [facility] [address] [facility] [place] [address] Initial Visit Allergies Active Allergy Reactions Criticality Noted Date Comments Sulfamethoxazole-Trimethoprim Hives 2022 documented as of this encounter (statuses as of 05/04/2024) Medications Medication Sig Dispensed Refills Start Date End Date Status 19 29-1 MG Oral Tablet Chewable Take by mouth. Activ e documented as of this encounter (statuses as of 05/04/2024) Active Problems Comments Yes No known active problems documented as of this encounter (statuses as of 05/04/2024) Resolved Problems Problem Noted Date Diagnosed Date [...] Patient interested if covered by insurance. S/p [facility] anatomy ultrasound: WNL. Following consult note: [...] as of this encounter (statuses as of 05/04/2024) Immunizations Name Administration Dates Next Due TDAP [...] money to get more. Never true 07/10/2023 [place] Depression Scale Answer Date Recorded [place] Depression Scale Total 5 01/03/2024 The thought [...] ages 0-17 years) Not on file 07/10/2023 Comments Yes Sex and Gender Information Value Date Recorded [...] - - Weight 74.8 kg (165 lb) 05/04/2024 1:45 PM EDT Height 175.3 cm (5' 9") 05/04/2024 1:45 PM EDT Body Mass Index 24.37 05/04/2024 1:45 PM EDT documented in this encounter Nursing Notes * Aleah Culver LPN - 05/04/2024 1:55 PM EDT Patient here for initial ob visit. No transferred records. Patient had a dating US 04/24/24, 8w5d Would like qnatal Are you planning a home delivery?No, [facility] Pt advised , If at anytime during your you decide to pursue a home , please notify our office. Patient oriented to the Women's Health department and current providers in the practice.We discuss the the options of delivery, [facility] vs [facility] with midwives. Reviewed frequency of visits. Reviewed outreach clinics and how to contact providers during regularoffice hours and after office hours. Educational packet reviewed. Steps[employer]wayer is a way you can talk to your provider online through e-mail. Would you like to sign up, I can activate it for you. ALREADY ACTIVE Patient advised not to use [facility] for urgent related problems. Aleah Lara LPN documented in this encounter Plan of Treatment Upcoming Encounters Date Type Department Care Team (Late st Contact Info) Description 05/12/2024 10:45 AM EDT Imaging Radiology [facility] [address] [place] [address] 05/13/2024 9:30 AM EDT Office Visit Gynecology/Obstetrics [facility] [address] [place] [address] Backer, SHARON Diaz [address] [place] [address] Health Maintenance Due Date Last Done Comments Hepatitis B Vaccine (1 of 3 - 19+ 3-dose series) 2010 Depression Screening 03/14/2024 03/14/2023 COVID-19 Vaccine (2023-2 5 season) 2024 Influenza Vaccine (FLU shot) [...]
--- OUTSIDE RECORDS SUMMARY | 2024-07-03 12:19 | External Medical Summary | Summary of Care ---
Author Name Unknown Organization [facility] Address [address] [facility] [place] [address] Phone [phone] Care Team Providers Care Damage Assessor Name Role Phone Unavailable Primary Care Provider Unavailabl e Reason for Visit * Reason Comments New Visit Encounter Details Date Type Department Care Team (Late st Contact Info) Description 05/13/2024 9:30 AM EDT Office Visit Gynecology/Obstetric s Piero Flowers [address] [place] [address] BackLeslee mora CRNP [address] [place] [address] Normal in first trimester*; Rh negative status [...] Patient interested if covered by insurance. S/p [facility] anatomy ultrasound: WNL. Following consult note: [...] money to get more. Never true 07/10/2023 [place] Depression Scale Answer Date Recorded [place] Depression Scale Total 5 01/03/2024 The thought [...] Last pap smear 09/2022 NILM, neg HPV [place] Depression Scale: [place] Depression Scale Total: 1 [place] suicide question and score: Score of 3 [...] Stability Do you currently live in a usp or have no steady place to sleep [...] deferred; completed 10/2023, pt has no concerns [employer] Documentation Patient offered front end web designer and declined. ASSESSMENT/PLAN: Normal in first trimester [...] Piero Flowers [address] [place] [address] Diamond Cerna CRNP [address] [place] [address] Pending Results Name Type Priority Associated Diagnoses [...] Lab Routine Normal in first trimester 05/13/2024 11:01 AM EDT Scheduled Orders Name Type Priority [...]
--- OUTSIDE RECORDS SUMMARY | 2024-07-03 12:19 | External Medical Summary ---
Author Name Unknown Address Unknown Organization [facility] - [address] [place] [address] Laboratory Report Ordering Provider Test Date Status ARONBACKER 05/13/2024 10:28:44 Final Observation Date Value Abnormality Reference (Units ) Status WBC, Total 05/13/2024 10:28:44 9.48 4.00-10.8 0 (K/uL) Final RBC 05/13/2024 10:28:44 4.06 3.85-5.15 (M/uL) Final Hemoglobin 05/13/2024 10:28:44 13.5 12.0-15.3 (g/dL) Final Anemia reflex testing trigge rs on a HGB < 12.0 for Females and HGB < 13.0 for Males in accordance with the WHO Anemia Guidelines
Anemia reflex testing triggers on a HGB < 12.0 for Females and HGB < 13.0 for Males in accordance with the WHO Anemia Guidelines HCT 05/13/2024 10:28:44 39.0 36.0-45.2 (%) Final MCV 05/13/2024 10:28:44 96.1 81.5-97.5 (fL) Final MCH 05/13/2024 10:28:44 33.3 27.0-34.0 (pg) Final MCHC 05/13/2024 10:28:44 34.6 32.0-36.0 (g/dL) Final RDW 05/13/2024 10:28:44 12.0 11.5-15.5 (%) Final Platelets 05/13/2024 10:28:44 308 140-400 (K /uL) Final MPV 05/13/2024 10:28:44 10.1 6.6-11.1 ( fL) Final Nucleated erythrocytes/100 leukocytes [Ratio] in Blood by Automated count 05/13/2024 10:28:44 0 <=0 (/100 WBCs) Fi nal Performing Location [facility] - [address] [facility] [address]
--- OUTSIDE RECORDS SUMMARY | 2024-07-03 12:19 | External Medical Summary ---
Author Name Unknown Address Unknown Organization K01:[facility] - [address] [place] [address] Laboratory Report Ordering Provider Test Date Status ANNE SHARP 05/13/2024 10:28:44 Final Observation Date Value Abnormality Reference (Units ) Status Hep C Ab 05/13/2024 10:28:44 Negative Negative Final Further HCV quantitative delmy ting not performed per protocol. Performing Location [facility] - [address] [place] [address]
--- OUTSIDE RECORDS SUMMARY | 2024-07-03 12:19 | External Medical Summary | Summary of Care ---
Author Name Unknown Organization [facility] Address [address] [facility] [place] [address] Phone [phone] Care Team Providers Care Vocational Technical Education Teacher Name Role Phone Unavailable Primary Care Provider Unavailabl e Reason for Visit * Reason Comments New Visit Encounter Details Date Type Department Care Team (Late st Contact Info) Description 05/13/2024 9:30 AM EDT Office Visit Gynecology/Obstetric s [facility] Flowers [address] [place] [address] BackLeslee mora CRNP [address] [place] [address] Normal in first trimester*; Rh negative status [...] Patient interested if covered by insurance. S/p [facility] anatomy ultrasound: WNL. Following consult note: [...] money to get more. Never true 07/10/2023 [place] Depression Scale Answer Date Recorded [place] Depression Scale Total 5 01/03/2024 The thought [...] Last pap smear 09/2022 NILM, neg HPV [place] Depression Scale: [place] Depression Scale Total: 1 [place] suicide question and score: Score of 3 [...] deferred; completed 10/2023, pt has no concerns Media Analytics Manager Documentation Patient offered forestry technician and declined. ASSESSMENT/PLAN: Normal in first trimester [...] 06/10/2024 9:45 AM EST Office Visit Gynecology/Obstetrics [address] [place] [address] Diamond Cerna CRNP [address] [place] [address] Pending Results Name Type Priority Associated Diagnoses [...]
--- OUTSIDE RECORDS SUMMARY | 2024-07-03 12:19 | External Medical Summary ---
Author Name Unknown Address Unknown Organization K01:[facility]ATORY [facility] [place] - [address] [place] [address] Laboratory Report Ordering Provider Test Date Status ARONANNE 05/13/2024 10:28:44 Final Observation Date Value Abnormality Reference (Units ) Status ABO 05/13/2024 10:28:44 O Final RH 05/13/2024 10:28:44 Negative Final RED BLOOD CELL ANTIBODY SCREEN 05/13/2024 10:28:44 Negative Final SPECIMEN EXPIRATION DATE 05/13/2024 10:28:44 05/16/2024 23:59 Final Performing Location LABORATORY [facility] - [address] [place] [address]
--- OUTSIDE RECORDS SUMMARY | 2024-07-03 12:19 | External Medical Summary ---
Author Name Unknown Address Unknown Organization K01:[facility] - [address] [place] [facility] [place] [address] Laboratory Report Ordering Provider Test Date Status ARON,BACKER 05/13/2024 10:28:44 Final Observation Date Value Abnormality Reference (Units ) Status SYNC LEUKOCYTES IN BLOOD BY AUTOMATED COUNT 05/13/2024 10:28:44 9.48 4.00-10.80 (K/uL) Final Segs 05/13/2024 10:28:44 69.6 40.0-75.0 (%) Final Lymphs % 05/13/2024 10:28:44 21.7 18.0-42.0 (%) Final Monos 05/13/2024 10:28:44 7.2 1.0-11.0 (%) Final Eosinophils 05/13/2024 10:28:44 0.7 0.0-6.0 (%) Final Basos 05/13/2024 10:28:44 0.5 0.0-2.0 (%) Final Immature Granulocyte, Percent 05/13/2024 10:28:44 0.3 0.0-2.0 (%) Final Absolute Segs 05/13/2024 10:28:44 6.59 1.80-7.70 (K/uL) Final Lymphs, absolute 05/13/2024 10:28:44 2.06 1.00-4.80 (K/ul) Final Monos, Abs 05/13/2024 10:28:44 0.68 0.00-1.10 (K/uL) Final Eos, Abs 05/13/2024 10:28:44 0.07 0.00-0.70 (K/uL) Final Basos, Abs 05/13/2024 10:28:44 0.05 0.00-0.20 (K/uL) Final Immature Granulocytes, Number 05/13/2024 10:28:44 0.03 0.00-0.20 (K/uL) Final Performing Location LABORATORY [facility] [place] - [address] [facility] [address]
--- OUTSIDE RECORDS SUMMARY | 2024-07-03 12:20 | External Medical Summary | Summary of Care ---
Author Name Unknown Organization [facility] Address [address] [facility] [place] [address] Phone [phone] Care Team Providers Care Dictating Machine Transcriber Name Role Phone Unavailable Primary Care Provider Unavailabl e Reason for Visit * Reason Comments Outpatient Testing Encounter Details Date Type Department Care Team (Late st Contact Info) Description 04/16/2024 11:50 AM EDT Laboratory Laboratory, [facility] [address] [place] [phone] [facility] 132 [place] [address] Early stage of Allergies Active Allergy Reactions Criticality Noted Date Comments Sulfamethoxazole-Trimethoprim Hives 2022 documented as of this encounter (statuses as of 04/16/2024) Medications Medication Sig Dispensed Refills Start Date End Date Status 19 29-1 MG Oral Tablet Chewable Take by mouth. Activ e documented as of this encounter (statuses as of 04/16/2024) Active Problems No known active problems documented as of this encounter (statuses as of 04/16/2024) Resolved Problems Problem Noted Date Diagnosed Date [...] Patient interested if covered by insurance. S/p [facility] anatomy ultrasound: WNL. Following consult note: [...] as of this encounter (statuses as of 04/16/2024) Immunizations Name Administration Dates Next Due TDAP [...] money to get more. Never true 07/10/2023 [place] Depression Scale Answer Date Recorded [place] Depression Scale Total 5 01/03/2024 The thought [...] 05/04/2024 1:45 PM EDT Nurse Only Gynecology/Obstetrics [facility] [address] [place] [address] , Nurse Fiberglass Container Winding Operator [facility] [address] [facility] [place] [address] 05/13/2024 8:30 AM EDT Imaging Radiology [facility] [address] [place] [address] 05/13/2024 9:30 AM EDT Office Visit Gynecology/Obstetrics [facility] [address] [place] [address] Backer, SHARON Diaz [address] [place] [address] Pending Results Name Type Priority Associated Diagnoses Date /Time BETA-HCG, QUANTITATIVE Lab Routine Early stage of 04/16/2024 11:49 AM EDT Health Maintenance Due Date Last [...] as of this encounter Visit Diagnoses Diagnosis Early stage of documented in this encounter
--- OUTSIDE RECORDS SUMMARY | 2024-07-03 12:20 | External Medical Summary ---
Author Name Unknown Address Unknown Organization K01:LABORATORY [place] [address] [address] [facility] [facility] [address] Laboratory Report Ordering Provider Test Date Status SHAKIRACLAUDIO 04/22/2024 13:40:38 Final hCG can serve as a screening assay for . However, early may not give a positive hCG test result. In addition, some non- women may have a hCG result slightly higher than the reference limit. Careful interpretation of the hCG with clinical history is required to determine whether the patient may be . Observation Date Value Abnormality Reference (Units ) Status Choriogonadotropin.in tact+Beta subunit [Units/volume] in Serum or Plasma 04/22/2024 13:40:38 [address].0 Above high normal <=1.0 (mIU/mL) Final Performing Location [facility] [place] [facility] [address] [facility] [address]
--- OUTSIDE RECORDS SUMMARY | 2024-07-03 12:20 | External Medical Summary | Summary of Care ---
Author Name Unknown Organization [facility] Address [address] [facility] [place] [address] Phone [phone] Care Team Providers Care High School Coordinator Name Role Phone Unavailable Primary Care Provider Unavailabl e Encounter Details Date Type Department Care Team (Late st Contact Info) Description 04/23/2024 Telephone Gynecology/Obstetrics [facility] [address] [place] [address] Frank Mazariegos MD [address] [facility] [place] [address] Allergies Active Allergy Reactions Criticality [...] money to get more. Never true 07/10/2023 [place] Depression Scale Answer Date Recorded [place] Depression Scale Total 5 01/03/2024 The thought [...] No 07/10/2023 Does the household have a [facility] source of income? (Household - for ages [...] encounter Miscellaneous Notes * Telephone Encounter - Frank Mazariegos MD - 04/23/2024 1:07 PM EDT Beta units do not rise as fast when the numbers are large.The definitive test is weather you see heart rate on ultrasound. documented in this encounter Plan of Treatment Upcoming Encounters Date Type Department Care Team (Late st Contact Info) Description 04/24/2024 9:45 AM EDT Imaging Radiology [facility] [address] [place] [address] 05/04/2024 1:45 PM EDT Nurse Only Gynecology/Obstetrics [facility] [address] [place] [address] Gw, Nurse Cascara Bark Cutter New [address] [place] [address] 05/13/2024 9:30 AM EDT Office Visit Gynecology/Obstetrics [facility] [address] [place] [address] Backer, SHARON Diaz [address] [place] [address] Health Maintenance Due Date Last Done Comments [...]
--- OUTSIDE RECORDS SUMMARY | 2024-07-03 12:20 | External Medical Summary ---
Author Name Unknown Address Unknown Organization K01:[facility] [place] [address] [facility] [address] Laboratory Report Ordering Provider Test Date Status CALUDIO ROSENBERG 04/02/2024 12:19:16 Final hCG can serve as a screening [...] tact+Beta subunit [Units/volume] in Serum or Plasma 04/02/2024 12:19:16 8098.0 Above high normal <=1.0 (mIU/mL) Final Performing Location LABORATORY [facility] [place] - [facility] [address]
--- OUTSIDE RECORDS SUMMARY | 2024-07-03 12:20 | External Medical Summary | Summary of Care ---
Author Name Unknown Organization [facility] Address [address] [facility] [place] [address] Phone [phone] Care Team Providers Care Corporate Executive Chef Name Role Phone Unavailable Primary Care Provider Unavailabl e Reason for Visit * Reason Onset Date Comments Order Request 04/08/2024 Dating US Encounter Details Date Type Department Care Team (Late st Contact Info) Description 04/08/2024 Telephone Gynecology/Obstetrics [facility] [address] [place] [address] Leslee Mena CRNP [address] [place] [address] Order Request (Dating US ) Allergies Active Allergy Reactions Criticality Noted Date Comments Sulfamethoxazole-Trimethoprim Hives 2022 documented as of this encounter (statuses as of 04/08/2024) Medications Medication Sig Dispensed Refills Start Date End Date Status 19 29-1 MG Oral Tablet Chewable Take by mouth. Activ e documented as of this encounter (statuses as of 04/08/2024) Active Problems No known active problems documented as of this encounter (statuses as of 04/08/2024) Resolved Problems Problem Noted Date Diagnosed Date [...] Patient interested if covered by insurance. S/p [facility] anatomy ultrasound: WNL. Following consult note: [...] as of this encounter (statuses as of 04/08/2024) Immunizations Name Administration Dates Next Due TDAP [...] money to get more. Never true 07/10/2023 [place] Depression Scale Answer Date Recorded [place] Depression Scale Total 5 01/03/2024 The thought [...] encounter Miscellaneous Notes * Telephone Encounter - Otilia Lockett OSA - 04/08/2024 1:46 PM EDT Dating US scheduled prior to NOB; Please place order and send back to me documented in this encounter Plan of Treatment Upcoming Encounters Date Type Department Care Team (Late st Contact Info) Description 05/04/2024 1:45 PM EDT Nurse Only Gynecology/Obstetrics [facility] [address] [place] [address] Gw, Nurse Bookseamer Blindstitch [facility] [place] [address] 05/13/2024 8:30 AM EDT Imaging Radiology [facility] [address] [place] [address] 05/13/2024 9:30 AM EDT Office Visit Gynecology/Obstetrics [facility] [address] [place] [address] Backer, SHARON Diaz [address] [place] [address] Scheduled Orders Name Type Priority Associated Diagnoses Orde r Schedule US PELVIS TRANS-VAGINAL OB Medical Imaging Routine at early stage Expected: 05/08/2024 (Approximate), Expires: 05/08/2025 Health Maintenance Due Date Last Done Comments Hepatitis B Vaccine (1 of 3 - 19+ 3-dose series) 2010 Depression Screening 03/14/2024 03/14/2023 COVID-19 Vaccine (1 - 2022-2 4 season) 2024 Influenza Vaccine (FLU shot) (#1) [...] as of this encounter Visit Diagnoses Diagnosis at early stage- Primary documented in this encounter
--- OUTSIDE RECORDS SUMMARY | 2024-07-03 12:20 | External Medical Summary | Summary of Care ---
Author Name Unknown Organization [facility] Address [address] [facility] [place] [address] Phone [phone] Care Team Providers Care Cage Shift Manager Name Role Phone Unavailable Primary Care Provider Unavailabl e Reason for Visit * Reason Comments Outpatient Testing Encounter Details Date Type Department Care Team (Late st Contact Info) Description 03/31/2024 11:10 AM EDT Laboratory Laboratory, [facility] [address] [facility] [place] [phone] [facility] [address] Early stage of Allergies Active Allergy Reactions Criticality Noted Date Comments Sulfamethoxazole-Trimethoprim Hives 2022 documented as of this encounter (statuses as of 03/31/2024) Medications Medication Sig Dispensed Refills Start Date End Date Status 19 29-1 MG Oral Tablet Chewable Take by mouth. Activ e documented as of this encounter (statuses as of 03/31/2024) Active Problems No known active problems documented as of this encounter (statuses as of 03/31/2024) Resolved Problems Problem Noted Date Diagnosed Date [...] Patient interested if covered by insurance. S/p [facility] anatomy ultrasound: WNL. Following consult note: [...] as of this encounter (statuses as of 03/31/2024) Immunizations Name Administration Dates Next Due TDAP [...] money to get more. Never true 07/10/2023 [place] Depression Scale Answer Date Recorded [place] Depression Scale Total 5 01/03/2024 The thought [...] 05/04/2024 1:45 PM EDT Nurse Only Gynecology/Obstetrics [facility] [address] [place] [address] , Nurse Bender Machine Operator [facility] [address] [place] [address] 05/13/2024 9:30 AM EDT Office Visit Gynecology/Obstetrics [facility] [address] [place] [address] Backer, SHARON Diaz [address] [place] [address] Pending Results Name Type Priority Associated Diagnoses Date /Time BETA-HCG, QUANTITATIVE Lab Routine Early stage of 03/31/2024 11:09 AM EDT Health Maintenance Due Date Last Done Comments Hepatitis B Vaccine (1 of 3 - 19+ 3-dose series) 2010 Depression Screening 03/14/2024 03/14/2023 COVID-19 Vaccine ( - 2022-2 4 season) 2024 Influenza Vaccine [...]
--- OUTSIDE RECORDS SUMMARY | 2024-07-03 12:20 | External Medical Summary | Summary of Care ---
Author Name Unknown Organization [facility] Address [address] [facility] [place] [address] Phone [phone] Care Team Providers Care Order Takers Supervisor Name Role Phone Unavailable Primary Care Provider Unavailabl e Reason for Visit * Reason Onset Date Comments Referral 03/31/2024 Encounter Details Date Type Department Care Team (Late st Contact Info) Description 03/31/2024 Telephone Gynecology/Obstetrics [facility] [address] [place] [address] Leslee Mena CRNP [address] [place] [address] Referral Allergies Active Allergy Reactions Criticality Noted Date [...] Patient interested if covered by insurance. S/p [facility] anatomy ultrasound: WNL. Following consult note: [...] money to get more. Never true 07/10/2023 [place] Depression Scale Answer Date Recorded [place] Depression Scale Total 5 01/03/2024 The thought [...] Telephone Encounter - Sally Dey LPN - 03/31/2024 10:33 AM EDT Patient unsure on dating due to . She has not had normal periods. Hcg orders placed per Dr. Albrecht insurance consultant. * Telephone Encounter - Stacy Welsh OSA - 03/31/2024 9:40 AM EDT Patient setting up her first visit and would like to get blood work done to verify her . I did advise she can go to her pcp for orders but she does not have one. She is asking if you can put in a lab order. I did schedule her first call and visit for April since she hashad a +HPT. She just recently gave in October. Thank you documented in this encounter Plan of Treatment Upcoming Encounters Date Type Department Care Team (Late st Contact Info) Description 05/04/2024 1:45 PM EDT Nurse Only Gynecology/Obstetrics [facility] [address] [place] [address] Gw, Nurse World Travel Counselor [facility] [address] [place] [address] 05/13/2024 9:30 AM EDT Office Visit Gynecology/Obstetrics [facility] [address] [place] [address] Backer, SHARON Diaz [address] [place] [address] Health Maintenance Due Date Last Done Comments [...]
--- OUTSIDE RECORDS SUMMARY | 2024-07-03 12:20 | External Medical Summary | Summary of Care ---
Author Name Unknown Organization [facility] Address [address] [facility] [place] [address] Phone [phone] Care Team Providers Care Construction Equipment Mechanic Name Role Phone Unavailable Primary Care Provider Unavailabl e Reason for Visit * Reason Comments Outpatient Testing Encounter Details Date Type Department Care Team (Late st Contact Info) Description 04/22/2024 1:30 PM EDT Laboratory Laboratory, [facility] [phone] [facility] 132 [facility] [place] [address] Early stage of Allergies Active Allergy Reactions Criticality Noted Date Comments Sulfamethoxazole-Trimethoprim Hives 2022 documented as of this encounter (statuses as of 04/22/2024) Medications Medication Sig Dispensed Refills Start Date End Date Status 19 29-1 MG Oral Tablet Chewable Take by mouth. Activ e documented as of this encounter (statuses as of 04/22/2024) Active Problems No known active problems documented as of this encounter (statuses as of 04/22/2024) Resolved Problems Problem Noted Date Diagnosed Date [...] Patient interested if covered by insurance. S/p [facility] anatomy ultrasound: WNL. Following [...] as of this encounter (statuses as of 04/22/2024) Immunizations Name Administration Dates Next Due TDAP [...] money to get more. Never true 07/10/2023 [place] Depression Scale Answer Date Recorded [place] Depression Scale Total 5 01/03/2024 The thought [...] 05/04/2024 1:45 PM EDT Nurse Only Gynecology/Obstetrics [facility] [address] [place] [address] , Nurse Strap Maker [facility] 132 [facility] [place] [address] 05/13/2024 8:30 AM EDT Imaging Radiology [facility] [address] [place] [address] 05/13/2024 9:30 AM EDT Office Visit Gynecology/Obstetrics [facility] [address] [place] [address] Backer, SHARON Diaz [address] [place] [address] Pending Results Name Type Priority Associated Diagnoses Date /Time BETA-HCG, QUANTITATIVE Lab Routine Early stage of 04/22/2024 1:40 PM EDT Health Maintenance Due Date Last Done [...]
--- OUTSIDE RECORDS SUMMARY | 2024-07-03 12:20 | External Medical Summary ---
Author Name Unknown Address Unknown Organization K01:[facility] [place] [address] [facility] [address] Laboratory Report Ordering Provider Test Date Status CLAUDIO ROSENBERG 04/16/2024 11:49:37 Final hCG can serve as a screening [...] tact+Beta subunit [Units/volume] in Serum or Plasma 04/16/2024 11:49:37 [address].0 Above high normal <=1.0 (mIU/mL) Final Performing Location [place] [facility] [place] [facility] [place]. [facility] [address]
--- OUTSIDE RECORDS SUMMARY | 2024-07-03 12:20 | External Medical Summary | Summary of Care ---
Author Name Unknown Organization [facility] Address [address] [facility] [place] [address] Phone [phone] Care Team Providers Care Informatica Mdm Architect Name Role Phone Unavailable Primary Care Provider Unavailabl e Encounter Details Date Type Department Care Team (Late st Contact Info) Description 04/23/2024 Telephone Gynecology/Obst[facility] [address] [place] [address] Frank Mazariegos MD [address] [facility] [place] [address] Allergies Active Allergy Reactions Criticality [...] money to get more. Never true 07/10/2023 [place] Depression Scale Answer Date Recorded [place] Depression Scale Total 5 01/03/2024 The thought [...] No 07/10/2023 Does the household have a [facility] source [facility] income? (Household - for ages [...] Description 04/24/2024 9:45 AM EDT Imaging Radiology [facility] [address] [place] [address] 05/04/2024 1:45 PM EDT Nurse Only Gynecology/Obstetrics [facility] [address] [place] [address] Gw, Nurse Savings Teller [facility] [address] [employer] [place] [address] 05/13/2024 9:30 AM EDT Office Visit Gynecology/Obstetrics [facility] [address] [place] [address] Backer, SHARON Diaz [address] [place] [address] Health Maintenance Due Date Last Done Comments [...]
--- OUTSIDE RECORDS SUMMARY | 2024-07-03 12:20 | External Medical Summary | Summary of Care ---
Author Name Unknown Organization [facility] Address [address] [facility] [place] [address] Phone [phone] Care Team Providers Care Kiln Stoker Name Role Phone Unavailable Primary Care Provider Unavailabl e Reason for Visit * Reason Comments Outpatient Testing Encounter Details Date Type Department Care Team (Late st Contact Info) Description 04/02/2024 12:40 PM EDT Laboratory Laboratory, [facility] [phone] [facility] 132 [place] [address] Early stage of Allergies Active Allergy Reactions Criticality Noted Date Comments Sulfamethoxazole-Trimethoprim Hives 2022 documented as of this encounter (statuses as of 04/02/2024) Medications Medication Sig Dispensed Refills Start Date End Date Status 19 29-1 MG Oral Tablet Chewable Take by mouth. Activ e documented as of this encounter (statuses as of 04/02/2024) Active Problems No known active problems documented as of this encounter (statuses as of 04/02/2024) Resolved Problems Problem Noted Date Diagnosed Date [...] Patient interested if covered by insurance. S/p [facility] anatomy ultrasound: WNL. Following consult [...] as of this encounter (statuses as of 04/02/2024) Immunizations Name Administration Dates Next Due TDAP [...] money to get more. Never true 07/10/2023 [place] Depression Scale Answer Date Recorded [place] Depression Scale Total 5 01/03/2024 The thought [...] 05/04/2024 1:45 PM EDT Nurse Only Gynecology/Obstetrics [facility] [address] [place] [address] , Nurse Crystallizer Operator [facility] [address] [address] 05/13/2024 9:30 AM EDT Office Visit Gynecology/Obstetrics Piero Flowers [address] [place] [address] Backer, SHARON Diaz [address] [place] [address] Pending Results Name Type Priority Associated Diagnoses Date /Time BETA-HCG, QUANTITATIVE Lab Routine Early stage of 04/02/2024 12:19 PM EDT Health Maintenance Due Date Last [...]
--- OUTSIDE RECORDS SUMMARY | 2024-07-03 12:21 | External Medical Summary | Summary of Care ---
Author Name Unknown Organization [facility] Address [address] [facility] [place] [address] Phone [phone] Care Team Providers Care Benzene Worker Name Role Phone Unavailable Primary Care Provider Unavailabl e Encounter Details Date Type Department Care Team (Late st Contact Info) Description 03/31/2024 Orders Only Gynecology/Obstetrics [facility] [address] [place] [address] Genaro Albrecht MD [address] [place] [address] Early stage of * Allergies Active Allergy Reactions Criticality Noted Date [...] money to get more. Never true 07/10/2023 [place] Depression Scale Answer Date Recorded [place] Depression Scale Total 5 01/03/2024 The thought [...] 05/04/2024 1:45 PM EDT Nurse Only [facility] [address] [place] [address] Gw, Nurse Stapling Machine Operator [facility] [address] [place] [address] 05/13/2024 9:30 AM EDT Office Visit Gynecology/Obstetrics Piero Flowers [address] [place] [address] Backer, SHARON Diaz [address] [place] [address] Scheduled Orders Name Type Priority Associated Diagnoses Orde r Schedule BETA-HCG, QUANTITATIVE Lab Routine Early stage of 4 Occurrences starting 03/31/2024 until 03/31/2025 Health Maintenance Due Date Last Done Comments [...] encounter Visit Diagnoses Diagnosis Early stage of - Primary documented in this encounter
--- OUTSIDE RECORDS SUMMARY | 2024-07-03 12:21 | External Medical Summary | Continuity of Care Document ---
Author Name Unknown Organization [facility] [address] [facility] Address [address], [place] [id number] [id number] Date(s): 02/26/24 - 02/26/24 [facility] [address] [facility] [address] [facility] [place], [place] [id number] Encounter Diagnosis Seborrheic keratoses(Discharge Diagnosis) - 02/26/24 Discharge Disposition: Home or Self Care Attending Physician: KULDIP Vega Dawn M Allergies, Adverse Reactions, Alerts Substance Criticality Severity Reaction Reaction Severity Status Bactrim Hives Active Assessment and Plan Extracted from: Title:Dermatology Office Visit Note Author:Kim mary PA-C, Dawn M Date:02/26/24 1.Seborrheic keratoses - chronic and stable -watchful waiting. SEBORRHEIC KERATOSES - discussed the likely benign and genetic nature of these lesions._ Reviewed sun protection with SPF 30 or higher applied every 80 minutes and use of sun protective clothing and hat. Call with questions or concerns. Follow up 18 months. Patient in agreement with plan. Medications Multivitamins with Vitamin B Complex, Vitamin C, Minerals and L- Methylfolate oral capsule Start: 10/11/22 9:06:00 AM EDT Start Date: 10/11/22 Status: Ordered Mental Status 02/26/24 Barriers to Learning one year None evide nt Mandatory Health Literacy Documentation Yes Health Literacy Communication Barriers N ever Primary Language Mauritian Problem List No Chronic Problems Diagnosis Diagnosis Type Effective Dates Health Status Clinical Service Informant Seborrheic keratoses Discharge Diagnosis 02/26/24 Procedures Procedure Date Related Diagnosis Body Site Status Shave biopsy of skin 09/04/23 Comp leted Surgery 1 Completed 1multiple surgeries left knee Social History Social History Type Response Smoking Status Never smoked cigaret delmy Sex Sex Representation Female (finding) Dermatology Outpatient Note * KULDIP Vega, Pat Leonard: PERFORM Event Display: Dermatology Outpt Note Authored Date: [id number] Chief Complaint f/u on spot on right cheek - she believes it is smaller History of Present Illness [place] e67yg[age] old patient presenting today with a chief complaint off/u on spot on right cheek - she believes it is smaller.She denies itching, bleeding, oozing, crusting or evolving lesions. Patient has no past personal history of skin cancer: Family history: none of skin cancer Patient uses sunscreen. Patient reports history of blistering sunburns / tanning beds. Grew up in [place]. Never worked outdoors. Not working now. Review of Systems Denies fever, chills, sweats, night sweats, weight loss, headache, visual change, stomach upset diarrhea and joint pain. Physical Exam _Constitutional: Generally well appearing, well developed. Appears stated age. Eyes: Conjunctivae and lids without noted inflammation, lesion, mass, deformity or drainage. Neurological / Psychiatric: Oriented to person, place and time. Appropriate mood and affect. No notable depression, anxiety or agitation. Integumentary:Exam of the scalp, face, hair, lips, eyelids, neck, both upper extremities, hands, digits, and nails was conducted and was normal except as detailed below: RIGHT CHEEK - 0.8cm brown patchy macule - likely jatin k. Assessment/Plan 1.Seborrheic keratoses - chronic and stable -watchful waiting. SEBORRHEIC KERATOSES - discussed the likely benign and genetic nature of these lesions._ Reviewed sun protection with SPF 30 or higher applied every 80 minutes and use of sun protective clothing and hat. Call with questions or concerns. Follow up 18 months. Patient in agreement with plan. Problem List/Past Medical History Ongoing No chronic problems Procedure/Surgical History Shave biopsy of skin| Service Date: 09/04/2023Surgery Medications multivitamin, ( Multivitamins with Vitamin B Complex, Vitamin C, Minerals and L-Methylfolate oral capsule) Allergies BactrimHives Social History Smoking Status Never smoked cigarettes Electronic Signature on File Electronically Reviewed/Signed by: COLT Jarrett Author Signature Dt/Tm:02/26/2024 02:15 PM Department of Family Medicine Department of Dermatology DAPHNEY "
--- OUTSIDE RECORDS SUMMARY | 2024-07-03 12:21 | External Medical Summary ---
Author Name Unknown Address Unknown Organization K01:[facility] [place] [address] [facility] [address] Laboratory Report Ordering Provider Test Date Status CLAUDIO ROSENBERG 03/31/2024 11:09:51 Final hCG can serve as a screening [...] tact+Beta subunit [Units/volume] in Serum or Plasma 03/31/2024 11:09:51 4271.0 Above high normal <=1.0 (mIU/mL) Final Performing Location LABORATORY [facility] [place] - [facility] [address]
== END 2024-07-01 19:35 | disposition home or self-care (01) | DRG 807 ==
LOC: 4S1 07:28